=== PATIENT | male | born 1945 | race Caucasian/White ===

== ENCOUNTER 2018-01-03 14:46 | Emergency (ER) | payer OTHER ==
[~2018-01-03] VITALS: Ht 175.3 cm; Wt 95.0 kg
[~2018-01-03 14:46] MED LIST: CLOP1TAB5 PO; COEN75CA PO; MULT-506 PO; OMEG10007 PO; TAMS0.4C59 PO; VITA400C15 PO
[2018-01-03 14:52] VITALS: Ht 175.3 cm; Wt 95.0 kg
[2018-01-03] MEDS ORDERED: SODIUM CHLORIDE 0.9% 500ML 500 ML IV STA (15:09)
[2018-01-03] MEDS ORDERED: SODIUM CHLORIDE 0.9% 1000ML 1,000 ML IV STA (15:09)
--- NOTE | 2018-01-03 15:16 | EMERGENCY ROOM VISIT NOTE ---
History Report prepared by Federico: Oren Faria Under the Supervision of: Dr. Zaynab Kirk M.D. First contact with patient: 15:04 Chief Complaint: ILLNESS Stated Complaint: UNABLE TO EAT FOR 4 DAYS History of Present Illness The patient is a 72 year old male who presents to the Emergency Room with complaints of worsening weakness and loss of appetite that he has been experiencing for the past 4 days. The patient states that he has not eaten since having a fast food hamburger on Monday 3 days ago. He did feel nauseous and "uneasy" after eating this hamburger, but did not vomit and did not have any bouts of diarrhea. He has been diaphoretic throughout the day today. He has not had any bowel movements at all for the past 3 days. This is very unusual for him. He also complains of a waxing and waning headache. He denies any fevers , urinary symptoms, or respiratory symptoms. The patient has not had any medication changes, but has not taken his medications for the past 3 days. The patient has a history of aortic valve replacement and hyperlipidemia. He has no chest pain at this time. 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 A total of 10 systems reviewed and were otherwise negative. 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 Social History Smoking Status: Never Smoker Alcohol Use: occasionally Marital Status: Housing Status: lives with family Occupation Status: employed Current/Historical Medications Scheduled Aspirin (Aspirin), 325 MG PO HS Cefdinir (Omnicef), 300 MG PO Q12H Clopidogrel Bisulfate (Clopidogrel), 75 MG PO QAM Metoprolol Tartrate (Lopressor), 25 MG PO AMHS Pravastatin Sodium (Pravastatin Sodium), 40 MG PO QAM Tamsulosin HCl (Tamsulosin HCl), 0.4 MG PO QAM Scheduled PRN Hydrocodone/Acetaminophen 10MG/325MG (Egan 10MG/325MG), 1 TAB PO UD PRN for Pain Allergies Coded Allergies: Iodinated Diagnostic Agents (Verified Allergy, Intermediate, Hives per patient, 01/03/18) Uncoded Allergies: DEER DANDER (Allergy, Unknown, ., 01/03/18) Physical Exam Vital Signs Date Time Temp Pulse Resp B/P (MAP) Pulse Ox O2 Delivery O2 Flow Rate FiO2 01/03/18 22:08 75 16 134/76 98 01/03/18 20:16 74 16 136/75 93 Room Air 01/03/18 19:18 80 01/03/18 18:54 82 16 144/74 94 Room Air 01/03/18 17:15 37.4 01/03/18 16:47 80 16 163/81 98 Room Air 01/03/18 15:18 76 01/03/18 15:15 81 16 144/77 95 Room Air 01/03/18 14:52 37.0 83 20 142/74 95 Physical Exam Vital signs reviewed. General: pale-appearing elderly male, in no significant distress. HEENT: No scleral icterus, PERRLA, neck supple. Atraumatic. TMs are clear. Posterior oropharynx is clear. Cardiovascular: Regular rate and rhythm, Systolic click appreciated. Pulmonary: Clear to auscultation bilaterally, normal work of breathing. Abdomen: Soft, nontender, nondistended, positive bowel sounds. Musculoskeletal: Atraumatic. Mild swelling to the right larger than left lower extremity : Large inguinal hernia with scrotal swelling, non-tender. Normal appearing penis. Neurologic: Patient awake alert and oriented x 3, full strength in all 4 extremities. Cranial nerves 2 through 12 grossly intact. Skin: Warm, dry, no rash Medical Decision & Procedures ER Provider Diagnostic Interpretation: Radiology results as stated below per my review and radiologist interpretation: CT ANGIOGRAPHY OF THE ABDOMEN AND PELVIS CLINICAL HISTORY: Weakness, nausea. No recent bowel movement. COMPARISON STUDY: CT of the chest and abdomen October 29, 2017 and KUB performed earlier today. TECHNIQUE: Helical axial images of the abdomen and pelvis were obtained following intravenous injection of 116 cc of Optiray 320 IV. Sagittal and coronal reconstructed reviewed as well as maximal intensity projections on an independent 3-D workstation. FINDINGS: Arterial phase images of the liver, spleen, adrenal glands and pancreas are unremarkable. There is no biliary or pancreatic ductal dilatation. There is moderate atherosclerotic plaque of the abdominal aorta which is normal in caliber. The celiac axis, superior mesenteric artery and bilateral renal arteries are patent. There is suspected stenosis of the proximal inferior mesenteric artery. There is extensive plaque of the bilateral common iliac, internal iliac and external iliac arteries without evidence for a high-grade stenosis. No pneumatosis, free air or portal venous gas is present. A large right inguinal hernia contains numerous ileal loops and associated mesentery with vessels and fat. There is no resultant bowel obstruction. There is mild left hydroureteronephrosis. Of note, there is severe right hydronephrosis as well as moderate dilatation of the right ureter to the level of the right ureterovesical junction. Right nephrogram is delayed. There is mild right perinephric infiltration. No ureteral calculus is identified. There is a possible tiny hyperdense nodule at the right ureterovesical junction shown image 289 of [id number]. There is mild irregular bladder wall thickening. Prostate is moderately enlarged. No suspicious osseous lesions are present. There is no lymphadenopathy. There is no abdominal aortic dissection. IMPRESSION: 1. Marked right hydronephrosis and moderate right hydroureter with dilatation of the right ureter to the level of the ureterovesical junction. No ureteral calculus. Equivocal tiny nodule at the ureterovesical junction. Delayed right nephrogram with mild right perinephric infiltration. Punctate bladder calculus which could reflect a recently passed calculus. However, the etiology for this obstruction is not clear on this exam and favors a long standing obstruction with possible stricture, either benign or malignant. Moderate enlargement of the prostate. Urologic consultation is recommended. 2. Large right inguinal hernia with numerous small bowel loops and associated mesenteric fat and vessels extending into the right hemiscrotum. No resultant bowel obstruction. 3. Extensive aortoiliac atherosclerotic plaque without dissection or aneurysmal dilatation. Patent celiac axis and superior mesenteric artery. Stenosis at the origin of the inferior mesenteric artery. Electronically signed by: Keanu Go M.D. 01/03/2018 6:06 PM Dictated Date/Time: 01/03/2018 5:[address] CHEST ANGIOGRAPHY WITHOUT A WITH CONTRAST CLINICAL HISTORY: Thoracic aneurysm with history of aortic valve repair. Inability to eat for 4 days. Weakness, nausea. COMPARISON STUDY: Chest x-ray dated January 03, 2018, CT angiography the chest dated 11/09/2011 FINDINGS: Unenhanced images were obtained through the chest. The patient was then scanned in a dynamic helical fashion during intravenous administration of 116 cc of Optiray 320. MIP imaging was performed. Unenhanced images reveal no evidence of acute aortic hematoma. Postcontrast images reveal no pathologically enlarged axillary, mediastinal, or hilar lymph nodes. There are no pulmonary artery filling defects to indicate acute pulmonary embolism. There is evidence for a prior aortic valve repair. There is interval midline sternotomy. The ascending thoracic aorta is of smaller caliber than on the prior study measuring a maximum of 42 mm at the level of the anterior aortic arch. There are notable flaps to indicate acute aortic dissection. There is a left subclavian dual-chamber central venous pacemaker present. There is a trace right pleural effusion. There is no evidence of focal pulmonary consolidation. There are advanced arthritic changes present within the shoulders. There is moderate right-sided hydronephrosis. IMPRESSION: 1. Mild dilatation of the ascending thoracic aorta which measures 42 mm 2. No evidence of thoracic aortic dissection 3. No evidence of pulmonary embolism 4. Trace right pleural effusion 5. No evidence of focal pulmonary consolidation 6. Moderate right-sided hydronephrosis Electronically signed by: Arnie Waite M.D. 01/03/2018 5:42 PM Dictated Date/Time: 01/03/2018 5:32 PM CHEST ONE VIEW PORTABLE CLINICAL HISTORY: Weakness. COMPARISON STUDY: Chest radiograph August 23, 2016. FINDINGS: Note is made of median sternotomy wires, mediastinal surgical clips and a dual lead left subclavian pacemaker. There is severe osteoarthritis of the left glenohumeral joint. Moderate cardiomegaly is noted. There is no evidence of pulmonary edema. No pneumothorax or pleural effusion is noted. IMPRESSION: No acute cardiopulmonary findings. Moderate cardiomegaly. Electronically signed by: Keanu Go M.D. 01/03/2018 4:19 PM Dictated Date/Time: 01/03/2018 4:17 PM KUB CLINICAL HISTORY: no BM 3 days, weakness, nausea COMPARISON STUDY: CT of the chest abdomen and pelvis October 29, 2017. FINDINGS: The bowel gas pattern is normal. There is a fhfp-kw-jtrfinty amount stool within the colon. Of note, bowel loops projecting inferior to the pelvis and are only partially imaged on this exam. IMPRESSION: No evidence for a bowel obstruction on this exam however bowel loops project inferior to the pelvis and are partially imaged on this exam. The findings raise the possibility of a large inguinal hernia with numerous bowel loops within the scrotum, incompletely imaged. Electronically signed by: Keanu Go M.D. 01/03/2018 4:23 PM Dictated Date/Time: 01/03/2018 4:19 PM Laboratory Results 01/03/18 15:30 Red Blood Count 3.82, Mean Corpuscular Volume 91.4, Mean Corpuscular Hemoglobin 31.4, Mean Corpuscular Hemoglobin Concent 34.4, Mean Platelet Volume 10.5, Neutrophils (%) (Auto) 79.8, Lymphocytes (%) (Auto) 6.3, Monocytes (%) (Auto) 13.4, Eosinophils (%) (Auto) 0.1, Basophils (%) (Auto) 0.1, Neutrophils # (Auto ) 10.09, Lymphocytes # (Auto) 0.80, Monocytes # (Auto) 1.70, Eosinophils # (Auto ) 0.01, Basophils # (Auto) 0.01 01/03/18 15:30 Test 01/03/18 15:25 01/03/18 15:30 01/03/18 15:42 01/03/18 15:54 Influenza Type A (RT-PCR) Neg for Influ A (NEG) Influenza Type B (RT-PCR) Neg for Influ B (NEG) White Blood Count 12.65 K/uL (4.8-10.8) Red Blood Count 3.82 M/uL (4.7-6.1) Hemoglobin 12.0 g/dL (14.0-18.0) Hematocrit 34.9 % (42-52) Mean Corpuscular Volume 91.4 fL (80-100) Mean Corpuscular Hemoglobin 31.4 pg (25-34) Mean Corpuscular Hemoglobin Concent 34.4 g/dl (32-36) Platelet Count 158 K/uL (130-400) Mean Platelet Volume 10.5 fL (7.4-10.4) Neutrophils (%) (Auto) 79.8 % Lymphocytes (%) (Auto) 6.3 % Monocytes (%) (Auto) 13.4 % Eosinophils (%) (Auto) 0.1 % Basophils (%) (Auto) 0.1 % Neutrophils # (Auto) 10.09 K/uL (1.4-6.5) Lymphocytes # (Auto) 0.80 K/uL (1.2-3.4) Monocytes # (Auto) 1.70 K/uL (0.11-0.59) Eosinophils # (Auto) 0.01 K/uL (0-0.5) Basophils # (Auto) 0.01 K/uL (0-0.2) RDW Standard Deviation 43.8 fL (36.4-46.3) RDW Coefficient of Variation 13.1 % (11.5-14.5) Immature Granulocyte % (Auto) 0.3 % Immature Granulocyte # (Auto) 0.04 K/uL (0.00-0.02) D-Dimer 3360 ug/L FEU (0-500) Anion Gap 10.0 mmol/L (3-11) Est Creatinine Clear Calc Drug Dose 40.2 ml/min Estimated GFR () 40.7 Estimated GFR (Non- 35.1 BUN/Creatinine Ratio 16.1 (10-20) Calcium Level 8.5 mg/dl (8.5-10.1) Magnesium Level 2.1 mg/dl (1.8-2.4) Total Bilirubin 0.7 mg/dl (0.2-1) Direct Bilirubin 0.2 mg/dl (0-0.2) Aspartate Amino Transf (AST/SGOT) 18 U/L (15-37) Alanine Aminotransferase (ALT/SGPT) 21 U/L (12-78) Alkaline Phosphatase 75 U/L (45-117) Troponin I 0.049 ng/ml (0-0.045) Total Protein 7.1 gm/dl (6.4-8.2) Albumin 3.1 gm/dl (3.4-5.0) Lipase 74 U/L (73-393) Thyroid Stimulating Hormone (TSH) 1.050 uIu/ml (0.300-4.500) Bedside Lactic Acid Venous 0.85 mmol/L (0.90-1.70) Urine Color YELLOW Urine Appearance CLOUDY (CLEAR) Urine pH 5.5 (4.5-7.5) Urine Specific [place] 1.019 (1.000-1.030) Urine Protein 1+ (NEG) Urine Glucose (UA) NEG (NEG) Urine Ketones NEG (NEG) Urine Occult Blood TRACE (NEG) Urine Nitrite NEG (NEG) Urine Bilirubin NEG (NEG) Urine Urobilinogen NEG (NEG) Urine Leukocyte Esterase LARGE (NEG) Urine WBC (Auto) >30 /hpf (0-5) Urine RBC (Auto) 0-4 /hpf (0-4) Urine Hyaline Casts (Auto) 1-5 /lpf (0-5) Urine Epithelial Cells (Auto) 0-5 /lpf (0-5) Urine Bacteria (Auto) NEG (NEG) Urine Yeast (Auto) (NONE PRSENT) Laboratory results per my review. Medications Administered Medications (Trade) Dose Ordered Sig/Lico Route Start Time Stop Time Status Last Admin Dose Admin Sodium Chloride 500 ml @ 999 mls/hr Q31M STAT IV 01/03/18 15:09 01/03/18 15:39 DC 01/03/18 15:55 999 MLS/HR Sodium Chloride 1,000 ml @ 125 mls/hr Q8H STAT IV 01/03/18 15:09 01/03/18 22:25 DC 01/03/18 15:09 125 MLS/HR Diphenhydramine HCl (Benadryl Inj) 50 mg NOW STAT IV 01/03/18 16:44 01/03/18 16:48 DC 01/03/18 16:57 50 MG Methylprednisolone Sodium Succinate (Solu-Medrol IV) 125 mg NOW STAT IV 01/03/18 16:44 01/03/18 16:48 DC 01/03/18 16:57 125 MG Ceftriaxone Sodium (Rocephin Inj) 1 gm NOW STAT IV 01/03/18 17:36 01/03/18 17:38 DC 01/03/18 17:36 1 GM ECG Per My Interpretation Indication: weakness Rate (beats per minute): 78 Rhythm: sinus rhythm Findings: 1st degree AV block, LBBB, other (No PVCs, No ST Elevation/Depression ) ED Course 1506: Past medical records reviewed. The patient was evaluated in room A9. A complete history and physical examination was performed. 1509: Ordered Sodium Chloride 1000 mL @ 125 mL/hr IV, Sodium Chloride 500 mL @ 99 mL/hr IV. 1644: Ordered Solu-Medrol 125 mg IV, Benadryl 50 mg IV. 1736: Ordered Rocephin 1 gm IV. 184: I discussed the case with Dr. Marie - Urology. He states that the patient needs a Jin catheter (which the patient is refusing) he will follow up with the patient tomorrow. 1741: I discussed the case with Dr. Sean Gamez. He states he will make Dr. Dionisio Swenson aware of the patient when her arrives at 1800. 1923: I discussed the case with Dr. Sean Gamez - [facility]. He will evaluate the patient for further treatment. 2129: Pt states "I've been waiting here for hours. I have too much work to do, I need to leave." I sat with patient for >15 min at bedside explaining need for admission. He expressed an understanding. 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 He states his life is NOT in danger tonight and he will leave. I have given IV ceftriaxone, will Rx omnicef. He is refusing jin cath. Urology made aware of pt insisting on d/c. He is competent and is is at bedside. Asked to return for any issues. Given urology number for outpt f/u ROSY. Medical Decision Differential diagnosis: Etiologies such as metabolic, infection, hypo/hyperglycemia, electrolyte abnormalities, cardiac sources, intracerebral event, toxicologic, neurologic, as well as others were entertained. Pt was evaluated and appeared to be ill, but in no distress. IVF were initiated and blood work was drawn. Pt has mild WBC elevation, normal lactic. BC are pending. CT scan chest and abd was performed to r/o aortic injury/PE given pt PMH and markedly elevated ddimer. This study is concerning for ureteral and bladder outlet obstruction. Pt has been ordered a jin cath, but he declines. Pt was tx with IV ceftriaxone. He states he has a "forceful stream." He initially agreed to inpt evaluation, but became anxious and refused. I spend a significant amount of time explaining the risks and benefits of refusing, he again acknowledged and declined admission. Pt case was d/c Dr Marie, he recommended admission, jin cath. Pt aware of specialty recs, but refused. His was present at the bedside and attempted to change pt's mind. He has many issued to take care of (banking, dog, 's mother in [place]). Pt was encouraged to see urology as outpt ROSY and return to the ED for worsening of symptoms or any medical concerns. He was d/c with Rx for omnicef po x 10 days. Medication Reconcilliation Current Medication List: was personally reviewed by me Blood Pressure Screening Patient's blood pressure: Elevated blood pressure Referred to Hospitalist Consults Time Called: 1839 Consulting Physician: Dr. Marie - Urology Returned Call: [phone] I discussed the case with Dr. Frank Wright Urologjae. He states that the patient needs a Jin catheter (which the patient is refusing) he will follow up with the patient tomorrow. Additional Consults: Time Called: 1919 Consulted Physician: Dr. Sean MERCADO Hospitalist Returned Call: 1923 Additional Comments: I discussed the case with Dr. Sean MERCADO Hospitalist. He will evaluate the patient for further treatment. Impression Primary Impression: Ureteral obstruction Additional Impressions: Acute on chronic renal failure Inguinal hernia Scribe Attestation The scribe's documentation has been prepared under my direction and personally reviewed by me in its entirety. I confirm that the note above accurately reflects all work, treatment, procedures, and medical decision making performed by me. Departure Information Dispostion Being Evaluated By Hospitalist Prescriptions Cefdinir (Omnicef) 300 Mg Cap 300 MG PO Q12H, #20 CAP Prov: Zaynab Kirk M.D. 01/03/18 Referrals Franco Ayoub M.D. (PCP) Patient Instructions My [facility] Health Problem Qualifiers
[2018-01-03 15:58] LABS: BASO % 0.1 %; BASO ABS # 0.01 K/uL (0-0.2); EOS % 0.1 %; EOS ABS # 0.01 K/uL (0-0.5); HEMATOCRIT 34.9 % (42-52); IG# 0.04 K/uL (0.00-0.02); LYMPH % 6.3 %; MEAN CELL VOLUME 91.4 fL (80-100); MEAN CORPUSCULAR HEMOGLOBIN 31.4 pg (25-34); MEAN CORPUSCULAR HGB CONC 34.4 g/dl (32-36); MEAN PLATELET VOLUME 10.5 fL (7.4-10.4); MONO % 13.4 %; NEUT % 79.8 %; NEUT ABS # 10.09 K/uL (1.4-6.5); PLATELET COUNT 158 K/uL (130-400); RED CELL DISTRIBUTION WIDTH CV 13.1 % (11.5-14.5); RED CELL DISTRIBUTION WIDTH SD 43.8 fL (36.4-46.3); WHITE BLOOD COUNT 12.65 K/uL (4.8-10.8)
[2018-01-03 16:16] LABS: ALBUMIN 3.1 gm/dl (3.4-5.0); CALCIUM 8.5 mg/dl (8.5-10.1); CREATININE 1.86 mg/dl (0.60-1.40); POTASSIUM 3.9 mmol/L (3.5-5.1)
--- NOTE | 2018-01-03 16:20 | DIAGNOSTIC IMAGING REPORT ---
CHEST ONE VIEW PORTABLE CLINICAL HISTORY: Weakness. COMPARISON STUDY: Chest radiograph August 23, 2016. FINDINGS: Note is made of median sternotomy wires, mediastinal surgical clips and a dual lead left subclavian pacemaker. There is severe osteoarthritis of the left glenohumeral joint. Moderate cardiomegaly is noted. There is no evidence of pulmonary edema. No pneumothorax or pleural effusion is noted. IMPRESSION: No acute cardiopulmonary findings. Moderate cardiomegaly. Electronically signed by: Keanu Go M.D. 01/03/2018 4:19 PM Dictated Date/Time: 01/03/2018 4:17 PM
--- NOTE | 2018-01-03 16:24 | DIAGNOSTIC IMAGING REPORT ---
KUB CLINICAL HISTORY: no BM 3 days, weakness, nausea COMPARISON STUDY: CT of the chest abdomen and pelvis October 29, 2017. FINDINGS: The bowel gas pattern is normal. There is a [id number]-yaohmxrd amount stool within the colon. Of note, bowel loops projecting inferior to the pelvis and are only partially imaged on this exam. IMPRESSION: No evidence for a bowel obstruction on this exam however bowel loops project inferior to the pelvis and are partially imaged on this exam. The findings raise the possibility of a large inguinal hernia with numerous bowel loops within the scrotum, incompletely imaged. Electronically signed by: Keanu Go M.D. 01/03/2018 4:23 PM Dictated Date/Time: 01/03/2018 4:19 PM
[2018-01-03 16:32] LABS: TOTAL PROTEIN 7.1 gm/dl (6.4-8.2)
[2018-01-03] MEDS ORDERED: METHYLPREDNISOLONE 125 MG VIAL IV STA (16:44)
[2018-01-03] MEDS ORDERED: DiphenhydrAMINE HCL 50 MG/ML VIAL IV STA (16:44)
[2018-01-03] MEDS ORDERED: TAMS0.4C38 PO (16:49)
[2018-01-03] MEDS ORDERED: OPTIRAY 320 IV PRN (17:00)
[2018-01-03 17:15] VITALS: TEMP 37.4
[2018-01-03 17:25] LABS: INFLUENZA A PCR Neg for Influ A (NEG); INFLUENZA B PCR Neg for Influ B (NEG)
[2018-01-03] MEDS ORDERED: CEFTRIAXONE SOD INJ 1 GM ADDVIAL IV STA (17:36)
--- NOTE | 2018-01-03 17:44 | DIAGNOSTIC IMAGING REPORT ---
CT CHEST ANGIOGRAPHY WITHOUT A WITH CONTRAST CLINICAL HISTORY: Thoracic aneurysm with history of aortic valve repair. Inability to eat for 4 days. Weakness, nausea. COMPARISON STUDY: Chest x-ray dated January 03, 2018, CT angiography the chest dated 11/09/2011 FINDINGS: Unenhanced images were obtained through the chest. The patient was then scanned in a dynamic helical fashion during intravenous administration of 116 cc of Optiray 320. MIP imaging was performed. Unenhanced images reveal no evidence of acute aortic hematoma. Postcontrast images reveal no pathologically enlarged axillary, mediastinal, or hilar lymph nodes. There are no pulmonary artery filling defects to indicate acute pulmonary embolism. There is evidence for a prior aortic valve repair. There is interval midline sternotomy. The ascending thoracic aorta is of smaller caliber than on the prior study measuring a maximum of 42 mm at the level of the anterior aortic arch. There are notable flaps to indicate acute aortic dissection. There is a left subclavian dual-chamber central venous pacemaker present. There is a trace right pleural effusion. There is no evidence of focal pulmonary consolidation. There are advanced arthritic changes present within the shoulders. There is moderate right-sided hydronephrosis. IMPRESSION: 1. Mild dilatation of the ascending thoracic aorta which measures 42 mm 2. No evidence of thoracic aortic dissection 3. No evidence of pulmonary embolism 4. Trace right pleural effusion 5. No evidence of focal pulmonary consolidation 6. Moderate right-sided hydronephrosis Electronically signed by: Arnie Waite M.D. 01/03/2018 5:42 PM Dictated Date/Time: 01/03/2018 5:32 PM
--- NOTE | 2018-01-03 18:07 | DIAGNOSTIC IMAGING REPORT ---
CT ANGIOGRAPHY OF THE ABDOMEN AND PELVIS CLINICAL HISTORY: Weakness, nausea. No recent bowel movement. COMPARISON STUDY: CT of the chest and abdomen October 29, 2017 and KUB performed earlier today. TECHNIQUE: Helical axial images of the abdomen and pelvis were obtained following intravenous injection of 116 cc of Optiray 320 IV. Sagittal and coronal reconstructed reviewed as well as maximal intensity projections on an independent 3-D workstation. FINDINGS: Arterial phase images of the liver, spleen, adrenal glands and pancreas are unremarkable. There is no biliary or pancreatic ductal dilatation. There is moderate atherosclerotic plaque of the abdominal aorta which is normal in caliber. The celiac axis, superior mesenteric artery and bilateral renal arteries are patent. There is suspected stenosis of the proximal inferior mesenteric artery. There is extensive plaque of the bilateral common iliac, internal iliac and external iliac arteries without evidence for a high-grade stenosis. No pneumatosis, free air or portal venous gas is present. A large right inguinal hernia contains numerous ileal loops and associated mesentery with vessels and fat. There is no resultant bowel obstruction. There is mild left hydroureteronephrosis. Of note, there is severe right hydronephrosis as well as moderate dilatation of the right ureter to the level of the right ureterovesical junction. Right nephrogram is delayed. There is mild right perinephric infiltration. No ureteral calculus is identified. There is a possible tiny hyperdense nodule at the right ureterovesical junction shown image 289 of 499. There is mild irregular bladder wall thickening. Prostate is moderately enlarged. No suspicious osseous lesions are present. There is no lymphadenopathy. There is no abdominal aortic dissection. IMPRESSION: 1. Marked right hydronephrosis and moderate right hydroureter with dilatation of the right ureter to the level of the ureterovesical junction. No ureteral calculus. Equivocal tiny nodule at the ureterovesical junction. Delayed right nephrogram with mild right perinephric infiltration. Punctate bladder calculus which could reflect a recently passed calculus. However, the etiology for this obstruction is not clear on this exam and favors a long standing obstruction with possible stricture, either benign or malignant. Moderate enlargement of the prostate. Urologic consultation is recommended. 2. Large right inguinal hernia with numerous small bowel loops and associated mesenteric fat and vessels extending into the right hemiscrotum. No resultant bowel obstruction. 3. Extensive aortoiliac atherosclerotic plaque without dissection or aneurysmal dilatation. Patent celiac axis and superior mesenteric artery. Stenosis at the origin of the inferior mesenteric artery. Electronically signed by: Keanu Go M.D. 01/03/2018 6:06 PM Dictated Date/Time: 01/03/2018 5:42 PM
[2018-01-03] MEDS ORDERED: CEFD1CAP14 PO (21:59)
[2018-01-03 22:08] VITALS: BP 134/76; PULSE 75; O2SAT 98
--- NOTE | 2018-01-04 11:39 | Pharmacy Progress Note ---
ED Pharmacist Culture FollowUp Date of Service: Jan 04, 2018. Preliminary set of blood cultures is growing gram positive cocci (in both the aerobic and the anaerobic bottles). Cultures were drawn less than 24 hours ago. Patient was seen in ER yesterday for c/o weakness, loss of appetite, nausea, diaphoresis and headache. He also reports no BM x 3 days. Of note the patient dose have a h/o of [employer] Freestyle aortic root heart valve replacement. CT abd/pelvis read as: mild irregular bladder wall thickening. marked R hydronephrosis and moderate R hydroureter, no ureteral calculus. mild R perinephric infiltration. etiology of obstruction unclear but favors long standing obstruction with possible stricture. larger R inguinal hernia w/ numerous sm bowel loops and associated mesenteric fat and vessels extending into the R hemiscrotum w/o bowel obstruction. WBC 12.65, Neut # 10.09 UA: cloudy, (-) nitrite, + LE, > 30 WBC, 0-5 epis, 0 bacteria; Urine Cx is still pending Pt was given IV Rocephin in ER, Rx for Omnicef on discharge w/ instructions to f /u with urology for ureteral obstruction. Case was reviewed w/ Dr Birmingham, patient is to return today for reevaluation. I attempted to contact the patient w/ the phone number provided ) however there was no answer. I did leave a message requesting a return call.
[2018-01-04] MEDS ORDERED: HYDR-4079 PO (12:22)
[2018-01-04] MEDS ORDERED: ASPI325T4 PO (12:22)
[2018-01-04] MEDS ORDERED: LPR25 PO (12:22)
[2018-01-04] MEDS ORDERED: PRAV40TA2 PO (16:49)
[2018-01-04] MEDS ORDERED: PLV75 PO (21:18)
[2018-01-04] MEDS ORDERED: FLM4 PO (21:18)
--- NOTE | 2018-01-05 13:48 | Pharmacy Progress Note ---
ED Pharmacist Culture FollowUp Date of Service: Jan 05, 2018. Micro results reported to me today: BLCX: strep species now reported as enterococcus faecalis Urine Cx: >100,000CFU/mL enterococcus faecalis Pt was admitted to [facility] last evening and is currently receiving Zosyn which is appropriate therapy based upon reported sensitivities.
== END 2018-01-03 22:09 | disposition home or self-care (01) ==
LOC: C.EDB 14:48 → C.EDA 22:09
DX: N13.5 Crossing vessel and stricture of ureter without hydronephrosis (principal); N18.9 Chronic kidney disease, unspecified; K40.90 Unilateral inguinal hernia, without obstruction or gangrene, not specified as recurrent; I25.10 Atherosclerotic heart disease of native coronary artery without angina pectoris; Z95.1 Presence of aortocoronary bypass graft; E87.5 Hyperkalemia; Z95.2 Presence of prosthetic heart valve; Z79.82 Long term (current) use of aspirin; Z79.899 Other long term (current) drug therapy; Z91.048 Other nonmedicinal substance allergy status

== ENCOUNTER 2018-01-04 20:15 | Inpatient (IN) | payer OTHER ==
[~2018-01-04] VITALS: Ht 175.3 cm; Wt 95.2 kg
[~2018-01-04 20:15] MED LIST changes: +ASPI325T4 PO; +CEFD1CAP14 PO; -COEN75CA PO; +HYDR-4079 PO; +LPR25 PO; -MULT-506 PO; -OMEG10007 PO; +PRAV40TA2 PO; +TAMS0.4C38 PO; -TAMS0.4C59 PO; -VITA400C15 PO
[2018-01-04] MEDS ORDERED: PIPERACILLIN/TAZOBACTAM 4.5 GM/100ML D5W IV STA (20:33)
[2018-01-04 21:05] LABS: HEMATOCRIT 35.4 % (42-52); HEMOGLOBIN 12.3 g/dL (14.0-18.0); IG# 0.04 K/uL (0.00-0.02); LYMPH % 4.9 %; LYMPH ABS # 0.66 K/uL (1.2-3.4); MEAN CORPUSCULAR HEMOGLOBIN 31.6 pg (25-34); MEAN CORPUSCULAR HGB CONC 34.7 g/dl (32-36); MEAN PLATELET VOLUME 10.7 fL (7.4-10.4); MONO % 7.2 %; MONO ABS # 0.96 K/uL (0.11-0.59); NEUT % 87.6 %; NEUT ABS # 11.68 K/uL (1.4-6.5); PLATELET COUNT 202 K/uL (130-400); RED CELL DISTRIBUTION WIDTH SD 43.2 fL (36.4-46.3); WHITE BLOOD COUNT 13.34 K/uL (4.8-10.8)
--- NOTE | 2018-01-04 21:07 | DIAGNOSTIC IMAGING REPORT ---
CHEST ONE VIEW PORTABLE CLINICAL HISTORY: 72 years-old Male presenting with fever. TECHNIQUE: Portable upright AP view of the chest was obtained. COMPARISON: 01/03/2018. FINDINGS: Left subclavian pacer with leads to the right atrium and right ventricular apex. Median sternotomy wires and mediastinal surgical clips unchanged. Cardiac silhouette mildly enlarged. Obscuration of the left heart border is fairly similar to prior exam. No other evidence of a focal opacity. No large effusion or pneumothorax. Degenerative changes of the thoracic spine. Degenerative changes of the bilateral glenohumeral joints. IMPRESSION: 1. Partial obscuration of the left heart border is not changed since the most recent exam and may be due to prominent pericardial fat versus a lingular infiltrate. If there is clinical concern, dedicated PA and lateral views are recommended to exclude consolidation in the lingula. Electronically signed by: Juancarlos Galo M.D. 01/04/2018 9:06 PM Dictated Date/Time: 01/04/2018 9:04 PM
[2018-01-04 21:17] LABS: ISTAT CREATININE 1.7 mg/dl (0.6-1.3); ISTAT IONIZED CALCIUM 1.09 mmol/l (1.12-1.32); ISTAT POTASSIUM 4.2 mEq/L (3.3-5.0)
[2018-01-04] MEDS ORDERED: PLV75 PO (21:18)
[2018-01-04] MEDS ORDERED: FLM4 PO (21:18)
[2018-01-04 21:20] LABS: ALBUMIN 3.1 gm/dl (3.4-5.0); CALCIUM 8.5 mg/dl (8.5-10.1); CREATININE 1.69 mg/dl (0.60-1.40); POTASSIUM 3.8 mmol/L (3.5-5.1)
[2018-01-04 21:26] LABS: CKMB 3.1 ng/ml (0.5-3.6); TOTAL PROTEIN 7.3 gm/dl (6.4-8.2)
[2018-01-04] MEDS ORDERED: ONDANSETRON INJ 2 MG/ML 2 ML VIAL IV PRN (23:00)
[2018-01-04] MEDS ORDERED: POLYETHYLENE (MIRALAX) 17 GM PACK PO PRN (23:00)
[2018-01-04] MEDS ORDERED: ACETAMINOPHEN 325 MG TAB PO PRN (23:00)
[2018-01-04] MEDS ORDERED: PIPERACILL/TAZOBAC CONSULT ACTIVE PRN (23:00)
--- NOTE | 2018-01-04 23:15 | History and Physical ---
History & Physical Date & Time of Service: Jan 04, 2018 at 23:15 Chief Complaint: Readmit Per Dr. Arthur Vazquez Primary Care Physician: Franco Ayoub M.D. History of Present Illness Source: patient Mr Chaudhari is a pleasant 72 year old male with a past medical history of L ICA Stenosis s/p CEA in 2016, Bioprosthetic aortic valve, AAA s/p repair, Pacemaker for complete heart block, and OA that presents 1 day after being seen in the ED for a UTI. The patient reports feeling very ill and fatigued over the last 3 days and yesterday was seen in the ED and found to have a UTI. He was given a dose of Rocephin in the ED and discharged home with Omnicef. The patient was at home this evening and his physician Dr. Arthur Vazquez came to his house to report to him his blood cultures and urine culture were both growing Enterococcus. Due to concerns over the bacteremia and his bioprosthetic heart valve, the patient was told to return to the ED. The patient states he has just felt extremely fatigued and worn down over the last few days. He was at a [employer] tournament over the weekend and the day afterward has felt very fatigued since. At this time the patient states he feels well enough to "run a marathon". Family History Patient reports no known family medical history. Social History Smoking Status: Never Smoker Housing status: lives with family Occupational Status: employed Immunizations History of Influenza Vaccine: No History of Tetanus Vaccine?: Yes History of Pneumococcal: Yes History of Hepatitis B Vaccine: No Allergies Coded Allergies: Iodinated Diagnostic Agents (Verified Allergy, Intermediate, Hives per patient, 01/03/18) Uncoded Allergies: DEER DANDER (Allergy, Unknown, ., 01/03/18) Home Medications Scheduled Aspirin (Aspirin), 325 MG PO HS Cefdinir (Omnicef), 300 MG PO Q12H Clopidogrel Bisulfate (Clopidogrel), 75 MG PO QAM Metoprolol Tartrate (Lopressor), 25 MG PO AMHS Pravastatin Sodium (Pravastatin Sodium), 40 MG PO QAM Tamsulosin HCl (Tamsulosin HCl), 0.4 MG PO QAM Scheduled PRN Hydrocodone/Acetaminophen 10MG/325MG ([place] 10MG/325MG), 1 TAB PO UD PRN for Pain Review of Systems Constitutional: + sweats, + fatigue, No fever, No chills, No weakness Respiratory: No cough, No sputum, No wheezing, No shortness of breath, No dyspnea on exertion Abdomen: No pain, No nausea, No vomiting, No diarrhea, No constipation Genitourinary - Male: No dysuria, No urinary frequency Endocrine: + fatigue Physical Exam Vital Signs Date Time Temp Pulse Resp B/P (MAP) Pulse Ox O2 Delivery O2 Flow Rate FiO2 01/04/18 21:58 73 20 125/81 95 Room Air 01/04/18 20:18 36.8 97 18 153/74 94 Room Air General Appearance: WD/WN, no apparent distress Head: normocephalic, atraumatic Eyes: normal inspection, sclerae normal Neck: supple, no carotid bruits Respiratory/Chest: chest non-tender, lungs clear, normal breath sounds Cardiovascular: regular rate, rhythm, no gallop, no murmur Abdomen/GI: normal bowel sounds, non tender, soft Back: normal inspection, no CVA tenderness Extremities/Musculoskelatal: no calf tenderness, no pedal edema, normal range of motion Neurologic/Psych: alert, oriented x 3 Diagnostics Laboratory Results Results Past 24 Hours Test 01/04/18 20:50 01/04/18 21:01 01/04/18 21:03 01/04/18 22:08 Range/Units White Blood Count 13.34 4.8-10.8 K/uL Red Blood Count 3.89 4.7-6.1 M/uL Hemoglobin 12.3 14.0-18.0 g/dL Hematocrit 35.4 42-52 % Mean Corpuscular Volume 91.0 80-100 fL Mean Corpuscular Hemoglobin 31.6 25-34 pg Mean Corpuscular Hemoglobin Concent 34.7 32-36 g/dl Platelet Count 202 130-400 K/uL Mean Platelet Volume 10.7 7.4-10.4 fL Neutrophils (%) (Auto) 87.6 % Lymphocytes (%) (Auto) 4.9 % Monocytes (%) (Auto) 7.2 % Eosinophils (%) (Auto) 0.0 % Basophils (%) (Auto) 0.0 % Neutrophils # (Auto) 11.68 1.4-6.5 K/uL Lymphocytes # (Auto) 0.66 1.2-3.4 K/uL Monocytes # (Auto) 0.96 0.11-0.59 K/uL Eosinophils # (Auto) 0.00 0-0.5 K/uL Basophils # (Auto) 0.00 0-0.2 K/uL RDW Standard Deviation 43.2 36.4-46.3 fL RDW Coefficient of Variation 13.0 11.5-14.5 % Immature Granulocyte % (Auto) 0.3 % Immature Granulocyte # (Auto) 0.04 0.00-0.02 K/uL Sodium Level 133 136-145 mmol/L Potassium Level 3.8 3.5-5.1 mmol/L Chloride Level 100 98-107 mmol/L Carbon Dioxide Level 22 21-32 mmol/L Anion Gap 11.0 14.0 16-25 mmol/L Blood Urea Nitrogen 40 7-18 mg/dl Creatinine 1.69 0.60-1.40 mg/dl Est Creatinine Clear Calc Drug Dose 44.4 ml/min Estimated GFR () 45.7 Estimated GFR (Non- 39.4 BUN/Creatinine Ratio 23.4 10-20 Random Glucose 146 70-99 mg/dl Calcium Level 8.5 8.5-10.1 mg/dl Magnesium Level 2.4 1.8-2.4 mg/dl Total Bilirubin 0.4 0.2-1 mg/dl Direct Bilirubin 0.1 0-0.2 mg/dl Aspartate Amino Transf (AST/SGOT) 40 15-37 U/L Alanine Aminotransferase (ALT/SGPT) 41 12-78 U/L Alkaline Phosphatase 78 45-117 U/L Total Creatine Kinase 110 39-308 U/L Creatine Kinase MB 3.1 0.5-3.6 ng/ml Creatine Kinase MB Ratio 2.8 0-3.0 Troponin I 0.015 0-0.045 ng/ml Total Protein 7.3 6.4-8.2 gm/dl Albumin 3.1 3.4-5.0 gm/dl Bedside Lactic Acid Venous 1.55 0.90-1.70 mmol/L Bedside Hemoglobin 11.6 14.0-18.0 g/dl Bedside Hematocrit 34 42-52 % Bedside Sodium 134 135-144 mEq/L Bedside Potassium 4.2 3.3-5.0 mEq/L Bedside Chloride 101 101-112 mEq/L Bedside Total CO2 24 24-31 mEq/l Bedside Blood Urea Nitrogen 43 7-18 mg/dl Bedside Creatinine 1.7 0.6-1.3 mg/dl Bedside Glucose (other) 154 70-99 mg/dl Bedside Ionized Calcium ([place]) 1.09 1.12-1.32 mmol/l Prothrombin Time 10.3 9.0-12.0 SECONDS Prothromb Time International Ratio 1.0 0.9-1.1 Microbiology Results 01/04/18 Blood Culture, Received Pending 01/04/18 Blood Culture, Received Pending Impression Assessment and Plan Mr Chaudhari is a pleasant 72 year old male with a past medical history of L ICA Stenosis s/p CEA in 2016, Bioprosthetic aortic valve, AAA s/p repair, Pacemaker for complete heart block, and OA that presents 1 day after being seen in the ED for a UTI UTI Bacteremia - Urine and Blood Cultures positive for Enterococcus - Afebrile and vital stable at this time - Zosyn 3.375gm q6h - Awaiting final sensitivities of cultures - UA Yesterday: Trace Occult Blood, WBC > 30, Large Leuk Esterase - Admit Med/Surg Hydronephrosis - CT 01/03: Marked right hydronephrosis and moderate right hydroureter with dilatation of the right ureter to the level of the ureterovesical junction. No ureteral calculus. Equivocal tiny nodule at the ureterovesical junction. Delayed right nephrogram with mild right perinephric infiltration. Punctate bladder calculus which could reflect a recently passed calculus. However, the etiology for this obstruction is not clear on this exam and favors a long standing obstruction with possible stricture, either benign or malignant. Moderate enlargement of the prostate. Urologic consultation is recommended. - Patient states he has a history of ureteral stricture so this may be chronic, although unclear at this time how this may have contributed to current infection - Urology Consulted --> Follows with Dr. Marie as outpatient - Continue home Flomax Heart Block/ Carotid Stenosis/ HLD - Continue home Aspirin, Plavix, Lopressor - At ED visit yesterday, patient had extensive workup including CTA chest and dissection with no acute findings for vascular pathology DVT - SCDs Code Status - Full Resuscitation Resident Physician Supervision Note: I was present with Dr. Baker during the history and exam. I discussed the case with the resident and agree with the findings and plan as documented in the note. Any exceptions or clarifications are listed here: L ICA Stenosis - CEA 2016, Bioprosthetic aortic valve, AAA repair, complete heart block - pacemaker, L ureteral stricture - possibly chronic hydro. Had presented to the ER due to fatigue one day prior. Diagnosed with a UTI and DCd with Omnicef. Contacted by his PCP when blood cultures returned + and may match urine cultures. He does not feel ill and denies fevers, however, there is concern reg bacteremia due to his valve replacement and he is admitted by request of his primary MD. OE AAO x 3 S1,2 R (+) mild systolic murmur NT, ND No CCE P: Pt placed on Zosyn pending culture results Would contact his urologist regarding the chronicity of his hydro Cont ASA, Plavix, owing to carotid disease Documented By: Dionisio Swenson Resuscitation Status Full Code VTE Prophylaxis Will order VTE Prophylaxis: Yes Reason for no VTE drug order: Contraindicated Resident Tracking Resident Involvement: Resident Care Provided Care Provided: Adult Hospital Medicine
[2018-01-05] VITALS (8 sets, daily range): BP systolic 124–179; BP diastolic 73–90; PULSE 70–86; TEMP 36.5–36.7; O2SAT 94–97; Ht 175.3 cm; Wt 95.2 kg
--- NOTE | 2018-01-05 00:49 | EMERGENCY ROOM VISIT NOTE ---
History Report prepared by Federico: Latia Wilson Under the Supervision of: Dr. Bladimir Barbosa D.O. First contact with patient: 20:22 Chief Complaint: REFERRED BY DOCTOR Stated Complaint: READMIT PER DR. ARTHUR CARRION History of Present Illness The patient is a 72 year old male who presents to the Emergency Room with complaints of constant increased urination beginning five days ago. The patient was seen in the ED last night for increased urination. The patient's urine grew out enterococci and his blood cultures were gram positive. He was put on Omnicef. The patient was referred to come to the ED by Dr. Arthur Carrion. Patient along her has any burning with urination. There was initially no exacerbating or remitting factors. Burning was only present with urination initially. Pt denies headache, change in vision, fevers, chest pain, shortness of breath, nausea, vomiting, diarrhea, pain with urination, and melena. The patient has a history of a aortic valve replacement, type two heart block, and a pacemaker. The patient is on Plavix. Source of History: patient Onset: 5 days ago Position: other (generalized) Quality: other (urination) Timing: other (increased ) Associated Symptoms: + urinary symptoms, No chest pain, No SOB Review of Systems See HPI for pertinent positives & negatives. A total of 10 systems reviewed and were otherwise negative. 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 Social History Smoking Status: Never Smoker Alcohol Use: occasionally Occupation Status: employed Current/Historical Medications Scheduled Aspirin (Aspirin), 325 MG PO HS Cefdinir (Omnicef), 300 MG PO Q12H Clopidogrel Bisulfate (Clopidogrel), 75 MG PO QAM Metoprolol Tartrate (Lopressor), 25 MG PO AMHS Pravastatin Sodium (Pravastatin Sodium), 40 MG PO QAM Tamsulosin HCl (Tamsulosin HCl), 0.4 MG PO QAM Scheduled PRN Hydrocodone/Acetaminophen 10MG/325MG ([place] 10MG/325MG), 1 TAB PO UD PRN for Pain Allergies Coded Allergies: Iodinated Diagnostic Agents (Verified Allergy, Intermediate, Hives per patient, 01/03/18) Uncoded Allergies: DEER DANDER (Allergy, Unknown, ., 01/03/18) Physical Exam Vital Signs Date Time Temp Pulse Resp B/P (MAP) Pulse Ox O2 Delivery O2 Flow Rate FiO2 01/04/18 23:09 151/86 01/04/18 21:58 73 20 125/81 95 Room Air 01/04/18 20:18 36.8 97 18 153/74 94 Room Air Physical Exam GENERAL: Sitting up in bed, alert, well appearing, well nourished, no distress, non-toxic EYE EXAM: normal conjunctiva. OROPHARYNX: no exudate, no erythema, lips, buccal mucosa, and tongue normal and mucous membranes are moist NECK: supple, no nuchal rigidity, no adenopathy, non-tender LUNGS: Clear to auscultation. Normal chest wall mechanics HEART: Audible click present. no murmurs, S1 normal and S2 normal CHEST: Pacemaker upper chest wall. ABDOMEN: abdomen soft, non-tender, normo-active bowel sounds, no masses, no rebound or guarding. BACK: Back is symmetrical on inspection and there is no deformity, no midline tenderness, no CVA tenderness. SKIN: no rashes and no bruising UPPER EXTREMITIES: upper extremities are grossly normal. LOWER EXTREMITIES: No pitting edema. NEURO EXAM: Normal sensorium, cranial nerves II-XII grossly intact, normal speech, no gross weakness of arms, no gross weakness of legs. Medical Decision & Procedures ER Provider Diagnostic Interpretation: Radiology results as stated below per my review and the radiologist's interpretation: CHEST ONE VIEW PORTABLE FINDINGS: Left subclavian pacer with leads to the right atrium and right ventricular apex. Median sternotomy wires and mediastinal surgical clips unchanged. Cardiac silhouette mildly enlarged. Obscuration of the left heart border is fairly similar to prior exam. No other evidence of a focal opacity. No large effusion or pneumothorax. Degenerative changes of the thoracic spine. Degenerative changes of the bilateral glenohumeral joints. IMPRESSION: 1. Partial obscuration of the left heart border is not changed since the most recent exam and may be due to prominent pericardial fat versus a lingular infiltrate. If there is clinical concern, dedicated PA and lateral views are recommended to exclude consolidation in the lingula. Electronically signed by: Juancarlos Galo M.D. Laboratory Results 01/04/18 20:50 Red Blood Count 3.89, Mean Corpuscular Volume 91.0, Mean Corpuscular Hemoglobin 31.6, Mean Corpuscular Hemoglobin Concent 34.7, Mean Platelet Volume 10.7, Neutrophils (%) (Auto) 87.6, Lymphocytes (%) (Auto) 4.9, Monocytes (%) (Auto) 7.2, Eosinophils (%) (Auto) 0.0, Basophils (%) (Auto) 0.0, Neutrophils # (Auto) 11.68, Lymphocytes # (Auto) 0.66, Monocytes # (Auto) 0.96, Eosinophils # (Auto) 0.00, Basophils # (Auto) 0.00 01/04/18 20:50 Test 01/04/18 20:50 01/04/18 21:01 01/04/18 21:03 01/04/18 22:08 White Blood Count 13.34 K/uL (4.8-10.8) Red Blood Count 3.89 M/uL (4.7-6.1) Hemoglobin 12.3 g/dL (14.0-18.0) Hematocrit 35.4 % (42-52) Mean Corpuscular Volume 91.0 fL (80-100) Mean Corpuscular Hemoglobin 31.6 pg (25-34) Mean Corpuscular Hemoglobin Concent 34.7 g/dl (32-36) Platelet Count 202 K/uL (130-400) Mean Platelet Volume 10.7 fL (7.4-10.4) Neutrophils (%) (Auto) 87.6 % Lymphocytes (%) (Auto) 4.9 % Monocytes (%) (Auto) 7.2 % Eosinophils (%) (Auto) 0.0 % Basophils (%) (Auto) 0.0 % Neutrophils # (Auto) 11.68 K/uL (1.4-6.5) Lymphocytes # (Auto) 0.66 K/uL (1.2-3.4) Monocytes # (Auto) 0.96 K/uL (0.11-0.59) Eosinophils # (Auto) 0.00 K/uL (0-0.5) Basophils # (Auto) 0.00 K/uL (0-0.2) RDW Standard Deviation 43.2 fL (36.4-46.3) RDW Coefficient of Variation 13.0 % (11.5-14.5) Immature Granulocyte % (Auto) 0.3 % Immature Granulocyte # (Auto) 0.04 K/uL (0.00-0.02) Est Creatinine Clear Calc Drug Dose 44.4 ml/min Estimated GFR () 45.7 Estimated GFR (Non- 39.4 BUN/Creatinine Ratio 23.4 (10-20) Calcium Level 8.5 mg/dl (8.5-10.1) Magnesium Level 2.4 mg/dl (1.8-2.4) Total Bilirubin 0.4 mg/dl (0.2-1) Direct Bilirubin 0.1 mg/dl (0-0.2) Aspartate Amino Transf (AST/SGOT) 40 U/L (15-37) Alanine Aminotransferase (ALT/SGPT) 41 U/L (12-78) Alkaline Phosphatase 78 U/L (45-117) Total Creatine Kinase 110 U/L (39-308) Creatine Kinase MB 3.1 ng/ml (0.5-3.6) Creatine Kinase MB Ratio 2.8 (0-3.0) Troponin I 0.015 ng/ml (0-0.045) Total Protein 7.3 gm/dl (6.4-8.2) Albumin 3.1 gm/dl (3.4-5.0) Bedside Lactic Acid Venous 1.55 mmol/L (0.90-1.70) Bedside Hemoglobin 11.6 g/dl (14.0-18.0) Bedside Hematocrit 34 % (42-52) Bedside Sodium 134 mEq/L (135-144) Bedside Potassium 4.2 mEq/L (3.3-5.0) Bedside Chloride 101 mEq/L (101-112) Bedside Total CO2 24 mEq/l (24-31) Anion Gap 14.0 mmol/L (16-25) Bedside Blood Urea Nitrogen 43 mg/dl (7-18) Bedside Creatinine 1.7 mg/dl (0.6-1.3) Bedside Glucose (other) 154 mg/dl (70-99) Bedside Ionized Calcium ([place]) 1.09 mmol/l (1.12-1.32) Prothrombin Time 10.3 SECONDS (9.0-12.0) Prothromb Time International Ratio 1.0 (0.9-1.1) Laboratory results per my review. Medications Administered Medications (Trade) Dose Ordered Sig/Lico Route Start Time Stop Time Status Last Admin Dose Admin Piperacillin Sod/ Tazobactam Sod (Zosyn Iv) 4.5 gm NOW STAT IV 01/04/18 20:33 01/04/18 20:34 DC 01/04/18 20:56 4.5 GM ED Course ED COURSE: Vital signs were reviewed and showed normal The patients medical record was reviewed The above diagnostic studies were performed and reviewed. ED treatments and interventions as stated above. 2023: The patient was evaluated in room B6. A complete history and physical examination was performed. 2032: Ordered Zosyn IV 4.5 gm IV. 2202: I reviewed the patient's case with Dr. Ford. He will evaluate the patient for further management. 2214: Upon reevaluation, the patient is resting comfortably.I discussed my findings with the patient and he understands and agrees with the treatment plan. Based on the patients age, coexisting illnesses, exam and lab findings the decision to treat as an inpatient was made. The patient remained stable while under my care. The patient will be evaluated for further management. 2244: I reviewed the patient's case with Dr. Rolando Carrion. He thinks the patient should be admitted into the hospital. 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 She was seen here yesterday and diagnosed with a UTI. At that time he had positive blood cultures. He was encouraged to stay elected to leave. Blood cultures grew out gram-positive Streptococcus species. Urine is growing out enterococcus. This is likely consistent with what is growing in his blood. He was on Omnicef which is not treating his infection. His PCP went to his house and encouraged that he come in for admission. I did give him a dose of Zosyn. White count slightly increased. Discussed case with internal medicine patient was made for further workup. Medication Reconcilliation Current Medication List: was personally reviewed by me Blood Pressure Screening Patient's blood pressure: Elevated blood pressure Blood pressure disposition: Elevated BP felt to be situational Consults Time Called: 2144 Consulting Physician: Dr. Ford Returned Call: [phone] I reviewed the patient's case with Dr. Ford. He will evaluate the patient for further management. Additional Consults: Time Called: 2239 Consulted Physician: Dr. Rolando Carrion Returned Call: [phone] Additional Comments: I reviewed the patient's case with Dr. Rolando Carrion. He thinks the patient should be admitted into the hospital. Impression Primary Impression: Sepsis Additional Impressions: UTI (urinary tract infection) Hydronephrosis Positive blood culture Scribe Attestation The scribe's documentation has been prepared under my direction and personally reviewed by me in its entirety. I confirm that the note above accurately reflects all work, treatment, procedures, and medical decision making performed by me. Departure Information Dispostion Being Evaluated By Hospitalist Referrals Franco Ayoub M.D. (PCP) Patient Instructions My [facility] Problem Qualifiers Primary Impression: Sepsis Sepsis type: sepsis due to unspecified organism Qualified Codes: A41.9 - Sepsis, unspecified organism Additional Impressions: UTI (urinary tract infection) Urinary tract infection type: acute cystitis Hematuria presence: with hematuria Qualified Codes: N30.01 - Acute cystitis with hematuria Hydronephrosis Hydronephrosis type: unspecified Qualified Codes: N13.30 - Unspecified hydronephrosis
[2018-01-05] MEDS: ASPIRIN 325 MG ECTAB PO SCH ×2 (01:37→20:55)
[2018-01-05] MEDS: METOPROLOL TARTRATE 25 MG TAB PO SCH ×3 (01:38→20:55)
[2018-01-05] MEDS: PIPERACILL/TAZOBAC IV 3.375 GM in DEXTROSE 5% 100ML 100 ML IV SCH ×2 (03:28→11:19)
[2018-01-05] MEDS: TAMSULOSIN HCL 0.4 MG CAP PO SCH (08:15)
[2018-01-05] MEDS: CLOPIDOGREL BISULFATE 75 MG TAB PO SCH (08:15)
[2018-01-05] MEDS: PRAVASTATIN SOD 40 MG TAB PO SCH (08:15)
[2018-01-05 09:07] LABS: HEMATOCRIT 34.8 % (42-52); IG# 0.04 K/uL (0.00-0.02); LYMPH % 7.5 %; LYMPH ABS # 0.98 K/uL (1.2-3.4); MEAN CELL VOLUME 90.6 fL (80-100); MEAN CORPUSCULAR HEMOGLOBIN 31.3 pg (25-34); MEAN CORPUSCULAR HGB CONC 34.5 g/dl (32-36); MEAN PLATELET VOLUME 10.1 fL (7.4-10.4); MONO ABS # 1.31 K/uL (0.11-0.59); NEUT % 82.2 %; NEUT ABS # 10.75 K/uL (1.4-6.5); PLATELET COUNT 212 K/uL (130-400); RED CELL DISTRIBUTION WIDTH CV 13.1 % (11.5-14.5); RED CELL DISTRIBUTION WIDTH SD 43.7 fL (36.4-46.3); WHITE BLOOD COUNT 13.08 K/uL (4.8-10.8)
--- NOTE | 2018-01-05 09:18 | Urology Consultation ---
History General Date of Service: Jan 05, 2018. Chief Complaint: UTI Primary Care Physician: Franco Ayoub M.D. 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 He was seen in the ED on 01-03 for similar issue, and jin catheter was recommended at that time. The pt did refuse placement. UC&S noted to be growing enterococcus; sensitivities pending. He was discharged home on Omnicef. Pt then developed worsening of urination, and returned. CT scan from 01-03 showing significant right hydro with a distended bladder and large inguinal hernia. Cr noted to be slightly improved on admission at 1.69 compared to 1.86 2 days ago. Blood cultures pending. The pt has been started on Zosyn. Imaging Imaging: CT, Ultrasound Laboratory Last 24 Hours Test 01/04/18 20:50 01/04/18 21:01 01/04/18 21:03 01/04/18 22:08 White Blood Count 13.34 K/uL Red Blood Count 3.89 M/uL Hemoglobin 12.3 g/dL Hematocrit 35.4 % Mean Corpuscular Volume 91.0 fL Mean Corpuscular Hemoglobin 31.6 pg Mean Corpuscular Hemoglobin Concent 34.7 g/dl Platelet Count 202 K/uL Mean Platelet Volume 10.7 fL Neutrophils (%) (Auto) 87.6 % Lymphocytes (%) (Auto) 4.9 % Monocytes (%) (Auto) 7.2 % Eosinophils (%) (Auto) 0.0 % Basophils (%) (Auto) 0.0 % Neutrophils # (Auto) 11.68 K/uL Lymphocytes # (Auto) 0.66 K/uL Monocytes # (Auto) 0.96 K/uL Eosinophils # (Auto) 0.00 K/uL Basophils # (Auto) 0.00 K/uL RDW Standard Deviation 43.2 fL RDW Coefficient of Variation 13.0 % Immature Granulocyte % (Auto) 0.3 % Immature Granulocyte # (Auto) 0.04 K/uL Sodium Level 133 mmol/L Potassium Level 3.8 mmol/L Chloride Level 100 mmol/L Carbon Dioxide Level 22 mmol/L Anion Gap 11.0 mmol/L 14.0 mmol/L Blood Urea Nitrogen 40 mg/dl Creatinine 1.69 mg/dl Est Creatinine Clear Calc Drug Dose 44.4 ml/min Estimated GFR () 45.7 Estimated GFR (Non- 39.4 BUN/Creatinine Ratio 23.4 Random Glucose 146 mg/dl Calcium Level 8.5 mg/dl Magnesium Level 2.4 mg/dl Total Bilirubin 0.4 mg/dl Direct Bilirubin 0.1 mg/dl Aspartate Amino Transf (AST/SGOT) 40 U/L Alanine Aminotransferase (ALT/SGPT) 41 U/L Alkaline Phosphatase 78 U/L Total Creatine Kinase 110 U/L Creatine Kinase MB 3.1 ng/ml Creatine Kinase MB Ratio 2.8 Troponin I 0.015 ng/ml Total Protein 7.3 gm/dl Albumin 3.1 gm/dl Bedside Lactic Acid Venous 1.55 mmol/L Bedside Hemoglobin 11.6 g/dl Bedside Hematocrit 34 % Bedside Sodium 134 mEq/L Bedside Potassium 4.2 mEq/L Bedside Chloride 101 mEq/L Bedside Total CO2 24 mEq/l Bedside Blood Urea Nitrogen 43 mg/dl Bedside Creatinine 1.7 mg/dl Bedside Glucose (other) 154 mg/dl Bedside Ionized Calcium ([place]) 1.09 mmol/l Prothrombin Time 10.3 SECONDS Prothromb Time International Ratio 1.0 Test 01/05/18 08:51 Problem List Medical Problems: (1) Acute on chronic renal failure Status: Acute (2) Confusion Status: Acute (3) Hydronephrosis Status: Acute (4) Positive blood culture Status: Acute (5) Sepsis Status: Acute (6) Ureteral obstruction Status: Acute (7) UTI (urinary tract infection) Status: Acute Past History osteoarthritis, other (AAA, complete heart block ) Past Surgical History: pacemaker, other (AAA repair, Left ICA stenosis s/p CEA in 2016, biprosthetic aortic valve) Family History Patient reports no known family medical history. Social History Hx Tobacco Use In Past Year?: No Smoking: non-smoker Drug use: none Marital status: Housing status: lives with family Occupation status: employed Immunizations History of Influenza Vaccine: No History of Tetanus Vaccine?: Yes History of Pneumococcal: Yes History of Hepatitis B Vaccine: No History of MDRO No Allergies Coded Allergies: Iodinated Diagnostic Agents (Verified Allergy, Intermediate, Hives per patient, 01/03/18) Uncoded Allergies: DEER DANDER (Allergy, Unknown, ., 01/03/18) Medications Home Medications: Home Meds and Scripts Medications Dose Route/Sig Max Daily Dose Days Date Category Dose Instructions Clopidogrel (Clopidogrel Bisulfate) 75 Mg Tab 75 Mg PO QAM 01/04/18 Reported Tamsulosin HCl 0.4 Mg Cap 0.4 Mg PO QAM 01/04/18 Reported Omnicef (Cefdinir) 300 Mg Cap 300 Mg PO Q12H 01/03/18 Rx Pravastatin Sodium 40 Mg Tab 40 Mg PO QAM 01/03/18 Reported Aspirin 325 Mg Tab 325 Mg PO HS 07/05/12 Reported [place] 10MG/325MG (Acetaminophen/Hydrocodone Bitart) Tab 1 Tab PO UD PRN 07/05/12 Reported PRN PAIN Lopressor (Metoprolol Tartrate) 25 Mg Tab 25 Mg PO AMHS 07/05/12 Reported Inpatient Medications: Current Inpatient Medications Medications (Trade) Dose Ordered Sig/Lico Route Start Time Stop Time Status Last Admin Dose Admin Acetaminophen (Tylenol Tab) 650 mg Q4H PRN PO 01/04/18 23:00 02/03/18 22:59 Polyethylene (Miralax Powder Packet) 17 gm DAILY PRN PO 01/04/18 23:00 02/03/18 22:59 Ondansetron HCl (Zofran Inj) 4 mg Q6H PRN IV 01/04/18 23:00 02/03/18 22:59 Aspirin (Ecotrin Tab) 325 mg HS PO 01/05/18 21:00 02/04/18 20:59 01/05/18 01:37 325 MG Clopidogrel Bisulfate (plAVix TAB) 75 mg QAM PO 01/05/18 08:00 02/04/18 08:59 01/05/18 08:15 75 MG Metoprolol Tartrate (Lopressor Tab) 25 mg AMHS PO 01/05/18 08:00 02/04/18 08:59 01/05/18 08:15 25 MG Pravastatin Sodium (Pravachol Tab) 40 mg QAM PO 01/05/18 08:00 02/04/18 08:59 01/05/18 08:15 40 MG Tamsulosin HCl (Flomax Cap) 0.4 mg QAM PO 01/05/18 08:00 02/04/18 08:59 01/05/18 08:15 0.4 MG Piperacillin Sod/ Tazobactam Sod 3.375 gm/Dextrose 115 ml @ 28.75 mls/ hr Q8H IV 01/05/18 03:00 01/15/18 02:59 01/05/18 03:28 28.75 MLS/HR Miscellaneous Information (Consult) 1 ea UD PRN N/A 01/04/18 23:00 02/03/18 22:59 Diphenhydramine HCl (Benadryl Cap) 25 mg DAILY PRN PO 01/05/18 07:30 02/04/18 07:29 Finasteride (Proscar Tab) 5 mg QAM PO 01/06/18 08:00 02/05/18 07:59 UNV Finasteride (Proscar Tab) 5 mg 0845 ONCE PO 01/05/18 08:45 01/05/18 08:46 UNV Review of Systems Review of Systems Constitutional: No fever, No chills Eyes: No double vision Neurological: No dizzy Endocrine: No excessive thirst Gastrointestinal: No abdominal pain, No nausea, No vomiting Cardiovascular: No chest pain Respiratory: No shortness of breath Skin: No rash Musculoskeletal: No back pain Male : + weak stream, No painful urination Physical Exam Vital Signs: Vital Signs Past 12 Hours Date Time Temp Pulse Resp B/P (MAP) Pulse Ox O2 Delivery O2 Flow Rate FiO2 01/05/18 08:13 70 162/85 (110) 01/05/18 06:54 36.5 73 20 157/80 (105) 97 Room Air 01/05/18 00:20 36.6 78 18 156/79 94 Room Air 01/04/18 23:41 36.8 73 20 151/86 95 01/04/18 23:09 151/86 01/04/18 21:58 73 20 125/81 95 Room Air Physical Exam: General Appearance: no apparent distress Eyes: bilateral eyes normal inspection ENT: hearing grossly normal Neck: no JVD Respiratory/Chest: no respiratory distress, no accessory muscle use Cardiovascular: no JVD Extremities: normal inspection Neurologic/Psychiatric: alert, normal mood/affect, oriented x 3 Skin: normal color Assessment & Plan Assessment & Plan A/P: Right hydronephrosis and incomplete bladder emptying with SHAMAR, UTI AFVSS. The pt was seen and assessed with Dr. Marie this morning. Pt with right hydronephrosis, incomplete bladder emptying, and SHAMAR felt to be consistent with SANDOVAL secondary to BPH. Recommended jin catheter placement this morning, however the pt reports he needs to see his son play hockey tonight, and desires to be discharged without a jin at this time. Discussed the possibility for worsening infection and renal failure without placement of jin catheter this morning. Ultimately recommend placing jin and repeating renal u/s in 3-4 days to see if hydro has improved. Continue IV abx pending cultures sensitivities. Continue Flomax. Will add in finasteride for BPH. Also recommend considering general surgery consult for large hernia not likely helping with his SANDOVAL. Thanks for the consult. Will continue to follow along with primary service if the pt remains inpatient.
[2018-01-05] MEDS ORDERED: FINASTERIDE 5 MG TAB PO ONE (09:30)
[2018-01-05 09:31] LABS: CALCIUM 8.6 mg/dl (8.5-10.1); CREATININE 1.68 mg/dl (0.60-1.40); POTASSIUM 4.3 mmol/L (3.5-5.1)
--- NOTE | 2018-01-05 13:07 | Family Medicine Progress Note ---
Progress Note Date of Service Jan 05, 2018. Subjective Interviewed pt while sitting on bed. at bedside. Pt reiterates history of poor appetite, decreased urination and constipation. Says his presented to his door urging him to go to come back to the hospital given his positive blood cultures. Pt insists he is well enough and does not want a jin unless a specialist does it. Pt also insists that he can wait for the hospital to call with results of the sensitivities so he can go home and attend his hockey game. spoke with me outside the room afterwards and says she is at a loss as to what to do. They have been only eight months and she says his children do not have good contact with him. She feels he is being stubborn and irresponsible. She also reports that he takes a lot of ibuprofen when he has pain. The patient also takes [place] 10/325 twice daily. She is worried he will get sick and she will not know how to help him. Pt denies pain anywhere, says he is urinating without pain or hesitancy. Denies fevers or chills, chest pain or difficulty breathing. ROS See HPI for pertinent positives and negatives. Medications Current Inpatient Medications Medications (Trade) Dose Ordered Sig/Lico Route Start Time Stop Time Status Last Admin Dose Admin Acetaminophen (Tylenol Tab) 650 mg Q4H PRN PO 01/04/18 23:00 02/03/18 22:59 Polyethylene (Miralax Powder Packet) 17 gm DAILY PRN PO 01/04/18 23:00 02/03/18 22:59 Ondansetron HCl (Zofran Inj) 4 mg Q6H PRN IV 01/04/18 23:00 02/03/18 22:59 Aspirin (Ecotrin Tab) 325 mg HS PO 01/05/18 21:00 02/04/18 20:59 01/05/18 01:37 325 MG Clopidogrel Bisulfate (plAVix TAB) 75 mg QAM PO 01/05/18 08:00 02/04/18 08:59 01/05/18 08:15 75 MG Metoprolol Tartrate (Lopressor Tab) 25 mg AMHS PO 01/05/18 08:00 02/04/18 08:59 01/05/18 08:15 25 MG Pravastatin Sodium (Pravachol Tab) 40 mg QAM PO 01/05/18 08:00 02/04/18 08:59 01/05/18 08:15 40 MG Tamsulosin HCl (Flomax Cap) 0.4 mg QAM PO 01/05/18 08:00 02/04/18 08:59 01/05/18 08:15 0.4 MG Piperacillin Sod/ Tazobactam Sod 3.375 gm/Dextrose 115 ml @ 28.75 mls/ hr Q8H IV 01/05/18 03:00 01/15/18 02:59 01/05/18 11:19 28.75 MLS/HR Miscellaneous Information (Consult) 1 ea UD PRN N/A 01/04/18 23:00 02/03/18 22:59 Diphenhydramine HCl (Benadryl Cap) 25 mg DAILY PRN PO 01/05/18 07:30 02/04/18 07:29 Finasteride (Proscar Tab) 5 mg QAM PO 01/06/18 08:00 02/05/18 07:59 Acetaminophen/ Hydrocodone Bitart ([place] 10/325 Tab) 1 tab BID PRN PO 01/05/18 10:30 01/19/18 10:29 Objective Vital Signs Date Time Temp Pulse Resp B/P (MAP) Pulse Ox O2 Delivery O2 Flow Rate FiO2 01/05/18 08:13 70 162/85 (110) 01/05/18 08:00 Room Air 01/05/18 06:54 36.5 73 20 157/80 (105) 97 Room Air 01/05/18 00:20 36.6 78 18 156/79 94 Room Air 01/04/18 23:41 36.8 73 20 151/86 95 01/04/18 23:09 151/86 01/04/18 21:58 73 20 125/81 95 Room Air 01/04/18 20:18 36.8 97 18 153/74 94 Room Air Physical Exam Notes: GENERAL: Awake, alert, in no distress. Obese. HENT: Normocephalic, atraumatic. EYES: Normal conjunctiva. Sclera non-icteric. RESPIRATORY: Clear to auscultation. CARDIAC: Regular rate, normal rhythm. Extremities warm and well perfused. Pulses equal. ABDOMEN: Soft, non-distended. No tenderness to palpation. No rebound or guarding. : non-reducible prominent hernia evident in lower abdomen approx 15 cm in diameter predominantly in right scrotal area. MUSCULOSKELETAL: Chest examination reveals no tenderness. The back is symmetrical on inspection without obvious abnormality. There is no CVA tenderness to palpation. No joint edema. LOWER EXTREMITIES: No edema. No discoloration. NEURO: No motor deficits noted. SKIN: No rash or jaundice noted. Laboratory Results 01/05/18 08:51 Red Blood Count 3.84, Mean Corpuscular Volume 90.6, Mean Corpuscular Hemoglobin 31.3, Mean Corpuscular Hemoglobin Concent 34.5, Mean Platelet Volume 10.1, Neutrophils (%) (Auto) 82.2, Lymphocytes (%) (Auto) 7.5, Monocytes (%) (Auto) 10.0, Eosinophils (%) (Auto) 0.0, Basophils (%) (Auto) 0.0, Neutrophils # (Auto ) 10.75, Lymphocytes # (Auto) 0.98, Monocytes # (Auto) 1.31, Eosinophils # (Auto ) 0.00, Basophils # (Auto) 0.00 01/05/18 08:51 Test 01/04/18 20:50 01/04/18 21:01 01/04/18 21:03 01/04/18 22:08 Magnesium Level 2.4 mg/dl (1.8-2.4) Total Bilirubin 0.4 mg/dl (0.2-1) Direct Bilirubin 0.1 mg/dl (0-0.2) Aspartate Amino Transf (AST/SGOT) 40 U/L (15-37) Alanine Aminotransferase (ALT/SGPT) 41 U/L (12-78) Alkaline Phosphatase 78 U/L (45-117) Total Creatine Kinase 110 U/L (39-308) Creatine Kinase MB 3.1 ng/ml (0.5-3.6) Creatine Kinase MB Ratio 2.8 (0-3.0) Troponin I 0.015 ng/ml (0-0.045) Total Protein 7.3 gm/dl (6.4-8.2) Albumin 3.1 gm/dl (3.4-5.0) Bedside Lactic Acid Venous 1.55 mmol/L (0.90-1.70) Bedside Hemoglobin 11.6 g/dl (14.0-18.0) Bedside Hematocrit 34 % (42-52) Bedside Sodium 134 mEq/L (135-144) Bedside Potassium 4.2 mEq/L (3.3-5.0) Bedside Chloride 101 mEq/L (101-112) Bedside Total CO2 24 mEq/l (24-31) Bedside Blood Urea Nitrogen 43 mg/dl (7-18) Bedside Creatinine 1.7 mg/dl (0.6-1.3) Bedside Glucose (other) 154 mg/dl (70-99) Bedside Ionized Calcium ([place]) 1.09 mmol/l (1.12-1.32) Prothrombin Time 10.3 SECONDS (9.0-12.0) Prothromb Time International Ratio 1.0 (0.9-1.1) Test 01/05/18 08:51 White Blood Count 13.08 K/uL (4.8-10.8) Red Blood Count 3.84 M/uL (4.7-6.1) Hemoglobin 12.0 g/dL (14.0-18.0) Hematocrit 34.8 % (42-52) Mean Corpuscular Volume 90.6 fL (80-100) Mean Corpuscular Hemoglobin 31.3 pg (25-34) Mean Corpuscular Hemoglobin Concent 34.5 g/dl (32-36) Platelet Count 212 K/uL (130-400) Mean Platelet Volume 10.1 fL (7.4-10.4) Neutrophils (%) (Auto) 82.2 % Lymphocytes (%) (Auto) 7.5 % Monocytes (%) (Auto) 10.0 % Eosinophils (%) (Auto) 0.0 % Basophils (%) (Auto) 0.0 % Neutrophils # (Auto) 10.75 K/uL (1.4-6.5) Lymphocytes # (Auto) 0.98 K/uL (1.2-3.4) Monocytes # (Auto) 1.31 K/uL (0.11-0.59) Eosinophils # (Auto) 0.00 K/uL (0-0.5) Basophils # (Auto) 0.00 K/uL (0-0.2) RDW Standard Deviation 43.7 fL (36.4-46.3) RDW Coefficient of Variation 13.1 % (11.5-14.5) Immature Granulocyte % (Auto) 0.3 % Immature Granulocyte # (Auto) 0.04 K/uL (0.00-0.02) Anion Gap 8.0 mmol/L (3-11) Est Creatinine Clear Calc Drug Dose 44.6 ml/min Estimated GFR () 46.0 Estimated GFR (Non- 39.7 BUN/Creatinine Ratio 24.3 (10-20) Calcium Level 8.6 mg/dl (8.5-10.1) Assessment and Plan 72 year old M with a past medical history of LICA Stenosis s/p CEA in 2016, Bioprosthetic aortic valve, AAA s/p repair, Pacemaker for complete heart block, and OA that presents 1 day after being seen in the ED for weakness, found to have a UTI sent home on omnicef, then sent back to hospital by family doctor because blood cultures were positive. UTI with gram positive Bacteremia/Hydronephrosis - Urine and Blood Cultures positive for Enterococcus. - Afebrile and vitals stable at this time - Zosyn 3.375gm q6h given initally --> sensitivities indicate sensitivity to several medications. However given the length of time pt could be here and how much he desires not to be in hospital, discussed with pharmacist and decided that vancomycin would be a good choice since it is usually covered by outpatient insurance. - IV Vanc in g+bacteremia recommended length of treatment is 5-7 days AFTER first set of NEGATIVE blood cultures. - Urology consulted and strongly recommends that pt have jin inserted given evidence on CT of severe RT sided hydronephrosis and possible bladder outlet obstruction, and continue treat with antibiotics. - ID consulted - CT 01/03: Marked right hydronephrosis moderate right hydroureter with dilatation of the right ureter to the level of the ureterovesical junction. No ureteral calculus. Equivocal tiny nodule at the ureterovesical junction. Punctate bladder calculus which could reflect a recently passed calculus. However, the etiology for this obstruction is not clear on this exam and favors a long standing obstruction with possible stricture, either benign or malignant. Moderate enlargement of the prostate. Urologic consultation is recommended. Bovine Aortic valve/Heart Block/ Carotid Stenosis/ HLD - pt has a pacemaker and bovine heart valve - Continue home Aspirin, Plavix, Lopressor - At ED, patient had extensive workup including CTA chest and dissection with no acute findings for vascular pathology DVTppx - SCDs Code Status - Full Resuscitation Dispo: med/surg. Home on dc. Continued [facility] stay due to: multiple IV medications needed Discharge planning: home Resident Tracking Resident Involvement: Resident Care Provided Care Provided: Adult Hospital Medicine History Resident Physician Supervision Note: I was present with Dr. Butterfield during the history and exam. I discussed the case with the resident and agree with the findings and plan as documented in the note. Any exceptions or clarifications are listed here. Pt reports feeling well without complaint and is anxious to go home. Inguinal hernia is stable from previous and considerable in size. Tolerating abx therapy well. General Appearance: WD/WN, no apparent distress Respiratory: chest non-tender, lungs clear, normal breath sounds Cardiovascular: normal peripheral pulses, regular rate, rhythm, no murmur Gastrointestinal: normal bowel sounds, non tender, soft Assessment/Plan 72 y/o male h/o L ICA stenosis s/p CEA, biprosthetic aortic valve (bovine), AAA s/p repair, pacer insertion for grade 2 heart block p/w +ve BCx UTI w/ enteroccoci on blood culture x 1 - continue IV abx, repeat BCx, ID consultation. Urology consultation - strongly encouraged jin catheter placement in the setting of hydronephrosis deferred by patient after discussion Bovine aortic valve w/ cardiac hx - continue present regimen VTE PPX - SCDs FULL CODE
--- NOTE | 2018-01-05 13:46 | Pharmacy Progress Note ---
ED Pharmacist Culture FollowUp Date of Service: Jan 05, 2018. Micro results reported to me today: BLCX: strep species now reported as enterococcus faecalis Urine Cx: >100,000CFU/mL enterococcus faecalis Pt was admitted to [facility] last evening and is currently receiving Zosyn which is appropriate therapy based upon reported sensitivities.
[2018-01-05] MEDS ORDERED: PRS5 PO (14:45)
[2018-01-05] MEDS ORDERED: LEVO1TAB35 PO (14:45)
--- NOTE | 2018-01-05 14:46 | Discharge Instructions ---
Discharge Instructions Date of Service 01/08/2018 Admission Reason for Admission: Bacteremia Due To Enteroccus Discharge Discharge Diagnosis / Problem: Complicated UTI Discharge Goals Goal(s): Decrease discomfort, Improve disease control, Learn about illness, Diagnostic testing, Therapeutic intervention Activity Recommendations Activity Limitations: per Instructions/Follow-up section . Instructions / Follow-Up Instructions / Follow-Up You were admitted to the hospital due to a urine infection that got into the blood. The bacteria was Enterococcus and it is sensitive to Daptomycin, Ampicillin, Vancomycin, and Penicillin. Your treatment was started on January 06 , and you should continue to get IV antibiotics to complete a course of 14 days. This has been arranged for you at the Medical Treatment Unit. You should also follow up with Infectious Diseases for them to decide if you need further oral antibiotics. Follow up with Urology, as arranged, to discuss intermittent self catheterization. Daptomycin and your statin can also interact, so we recommend you get a CPK level done at your PCP's office in about a week's time. Please follow up with your PCP to discuss this. If you have any issues with your medication, please contact us or your PCP. Current Hospital Diet Patient's current hospital diet: Regular Diet Discharge Diet Recommended Diet: Regular Diet Pending Studies Studies pending at discharge: no Medical Emergencies . Who to Call and When: Medical Emergencies: If at any time you feel your situation is an emergency, please call 911 immediately. . Non-Emergent Contact Non-Emergency issues call your: Primary Care Provider . . "Provider Documentation" section prepared by Rosario Rowe .
[2018-01-05] MEDS ORDERED: LEVOFLOXACIN 750 MG TAB PO ONE (15:45)
[2018-01-05] MEDS: HYDROCODONE/ACETAMI 10/325 TAB PO PRN (16:38)
[2018-01-05] MEDS ORDERED: VANCOMYCIN CONSULT ACTIVE PRN (17:00)
--- NOTE | 2018-01-05 17:04 | Pharmacy Progress Note ---
Pharmacy Abx Initial Consult Date of Service Jan 05, 2018. Pharmacy Dosing Scope Date of Consult: 01/05/18 Consultation requested by: Dr. Butterfield Pharmacy is consulted to initiate vancomycin IV dosing therapy, order appropriate labs and adjust drug dose/frequency. Subjective The patient is a 72 year old male admitted on Jan 04, 2018 at 23:16. Objective Height (Feet): 5 Height (Inches): 9.00 Weight (Kilograms): 95.200 Vital Signs (Past 12Hrs) Vital Signs Past 12 Hours Date Time Temp Pulse Resp B/P (MAP) Pulse Ox O2 Delivery O2 Flow Rate FiO2 01/05/18 15:15 36.5 70 20 97 Room Air 01/05/18 08:13 70 162/85 (110) 01/05/18 08:00 Room Air 01/05/18 06:54 36.5 73 20 157/80 (105) 97 Room Air Lab Results (24Hrs) Laboratory Tests (24 Hours) Test 01/04/18 20:50 01/05/18 08:51 Total Creatine Kinase 110 U/L (39-308) White Blood Count 13.08 K/uL (4.8-10.8) H Red Blood Count 3.84 M/uL (4.7-6.1) L Hemoglobin 12.0 g/dL (14.0-18.0) L Hematocrit 34.8 % (42-52) L Mean Corpuscular Volume 90.6 fL (80-100) Mean Corpuscular Hemoglobin 31.3 pg (25-34) Mean Corpuscular Hemoglobin Concent 34.5 g/dl (32-36) Platelet Count 212 K/uL (130-400) Mean Platelet Volume 10.1 fL (7.4-10.4) Neutrophils (%) (Auto) 82.2 % Lymphocytes (%) (Auto) 7.5 % Monocytes (%) (Auto) 10.0 % Eosinophils (%) (Auto) 0.0 % Basophils (%) (Auto) 0.0 % Neutrophils # (Auto) 10.75 K/uL (1.4-6.5) H Lymphocytes # (Auto) 0.98 K/uL (1.2-3.4) L Monocytes # (Auto) 1.31 K/uL (0.11-0.59) H Eosinophils # (Auto) 0.00 K/uL (0-0.5) Basophils # (Auto) 0.00 K/uL (0-0.2) Micro Results Date/Time Source Procedure Growth Status 01/04/18 21:14 Blood Blood Culture - Preliminary Gram Positive Cocci Resulted 01/04/18 20:50 Blood Blood Culture - Preliminary Gram Positive Cocci Resulted Assessment & Plan Assessment 72 year old male with a PMH of bioprosthetic valve, AAA s/p repair who is admitted with an enterococcal UTI causing bacteremia. Plan vancomycin for treatment of bacteremia with a valve Vancomycin IV * Loading dose: 2500 mg (25 mg/kg) * Maintenance dose: 1500 mg IV (15 mg/kg) every 18 hours (estimated half-life is 17.3 hours with an elimination constant of 0.04 hr-1) * Goal trough level for bacteremia : 15 to 20 mcg/mL * Trough ordered for 01/07/18 Pharmacy will continue to follow and will adjust dose/frequency as necessary. Thank you.
[2018-01-05] MEDS ORDERED: VANCOMYCIN INJ 2,500 MG in SODIUM CHLORIDE 0.9% 500ML 500 ML IV ONE (17:30)
[2018-01-06 00:19] VITALS: BP 150/86; PULSE 58; TEMP 36.7; O2SAT 94
[2018-01-06 04:55] LABS: BASO % 0.1 %; BASO ABS # 0.01 K/uL (0-0.2); EOS % 0.5 %; EOS ABS # 0.05 K/uL (0-0.5); HEMATOCRIT 35.5 % (42-52); IG# 0.03 K/uL (0.00-0.02); LYMPH % 18.4 %; LYMPH ABS # 1.69 K/uL (1.2-3.4); MEAN CORPUSCULAR HEMOGLOBIN 31.1 pg (25-34); MEAN CORPUSCULAR HGB CONC 33.8 g/dl (32-36); MEAN PLATELET VOLUME 10.4 fL (7.4-10.4); MONO % 14.5 %; MONO ABS # 1.33 K/uL (0.11-0.59); NEUT % 66.2 %; NEUT ABS # 6.06 K/uL (1.4-6.5); PLATELET COUNT 217 K/uL (130-400); RED CELL DISTRIBUTION WIDTH CV 13.1 % (11.5-14.5); WHITE BLOOD COUNT 9.17 K/uL (4.8-10.8)
[2018-01-06 05:13] LABS: CALCIUM 8.3 mg/dl (8.5-10.1); CREATININE 1.86 mg/dl (0.60-1.40); POTASSIUM 4.5 mmol/L (3.5-5.1)
[2018-01-06 07:35] VITALS: BP 173/98; PULSE 71; TEMP 36.7; O2SAT 94
[2018-01-06] MEDS: TAMSULOSIN HCL 0.4 MG CAP PO SCH (07:46)
[2018-01-06] MEDS: METOPROLOL TARTRATE 25 MG TAB PO SCH ×2 (07:47→20:29)
[2018-01-06] MEDS: CLOPIDOGREL BISULFATE 75 MG TAB PO SCH (07:48)
[2018-01-06] MEDS: PRAVASTATIN SOD 40 MG TAB PO SCH (07:48)
[2018-01-06] MEDS: FINASTERIDE 5 MG TAB PO SCH (07:49)
--- NOTE | 2018-01-06 10:23 | Progress Note ---
Progress Note Date of Service Jan 06, 2018. Progress Note Patient's afebrile vital signs are stable. He says he is voiding okay. He continues to refuse a Pittman catheter placement His blood cultures are positive for gram-negative organism sensitivities and ID pending I reviewed his CT scan it does look like his bladder is very distended up to the umbilicus Recommend checking a postvoid residual I again think he needs to have a catheter placed and we did discuss this we also discussed the possibility of renal damage because of the hydronephrosis due to the back pressure from a full bladder. If he is adamant to not have a Pittman then we also discussed having him talk to do intermittent catheterization I am not sure whether he would be willing to go along with that At this point I would continue him on his antibiotics pending the sensitivities
--- NOTE | 2018-01-06 12:11 | DIAGNOSTIC IMAGING REPORT ---
CHEST 2 VIEWS ROUTINE CLINICAL HISTORY: 72 years-old Male presenting with assess consolidation. TECHNIQUE: PA and lateral views of the chest were obtained. COMPARISON: 01/04/2018. FINDINGS: Left subclavian pacer leads to the right atrium and right ventricular apex. Median sternotomy wires and mediastinal surgical clips unchanged. Cardiac silhouette mildly enlarged and pulmonary vasculature mildly prominent. Lungs and pleural spaces clear. Degenerative changes of the thoracic spine. Upper abdomen normal. IMPRESSION: 1. No evidence of consolidation in the lingula. Prominent pericardial fat likely accounted for the appearance on portable radiograph. No acute cardiopulmonary disease. Electronically signed by: Juancarlos Galo M.D. 01/06/2018 12:10 PM Dictated Date/Time: 01/06/2018 12:09 PM
[2018-01-06] MEDS: VANCOMYCIN INJ 1,500 MG in SODIUM CHLORIDE 0.9% 500ML 500 ML IV SCH (12:21)
[2018-01-06 15:30] VITALS: BP 158/76; PULSE 60; TEMP 36.7; O2SAT 95
[2018-01-06] MEDS: TOBRAMYCIN SULF 0.3% OP SOLN 5 ML BTL OP SCH ×2 (16:14→20:28)
[2018-01-06] MEDS: HYDROCODONE/ACETAMI 10/325 TAB PO PRN (16:17)
--- NOTE | 2018-01-06 18:56 | Family Medicine Progress Note ---
Progress Note Date of Service Jan 06, 2018. Subjective Pt evaluation today including: conversation w/ patient, conversation w/ family , physical exam, chart review, lab review, review of studies, conversation w/ edi consultant, review of inpatient medication list Patient well, denies acute overnight issues. States he is voiding sufficiently without urinary/BPH symptoms. Pt insists he is well enough and does not want a Jin. He denies fevers/chills, headaches, CP, palpitations, dyspnea, abdominal pain, lower extremity swelling or rashes. He states he is tolerating diet without nausea or vomiting, ambulating without exacerbating symptoms, and voiding and stooling appropriately. ROS is unremarkable except as noted above. Objective Vital Signs Date Time Temp Pulse Resp B/P (MAP) Pulse Ox O2 Delivery O2 Flow Rate FiO2 01/06/18 16:00 Room Air 01/06/18 15:30 36.7 60 18 158/76 (103) 95 Room Air 01/06/18 08:00 Room Air 01/06/18 07:35 36.7 71 18 173/98 (123) 94 Room Air 01/06/18 00:19 36.7 58 18 150/86 (107) 94 Room Air 01/06/18 00:17 Room Air Physical Exam Notes: GENERAL: Awake, alert, in no distress. Obese. HENT: Normocephalic, atraumatic. EYES: Normal conjunctiva. Sclera non-icteric. RESPIRATORY: Clear to auscultation. CARDIAC: Regular rate, normal rhythm. Extremities warm and well perfused. Pulses equal. ABDOMEN: Soft, non-distended. No tenderness to palpation. No rebound or guarding. : non-reducible prominent hernia evident in lower abdomen approx 15 cm in diameter predominantly in right scrotal area. MUSCULOSKELETAL: Chest examination reveals no tenderness. The back is symmetrical on inspection without obvious abnormality. There is no CVA tenderness to palpation. No joint edema. LOWER EXTREMITIES: No edema. No discoloration. NEURO: No motor deficits noted. SKIN: No rash or jaundice noted. Assessment and Plan 72 year old M with a past medical history of LICA Stenosis s/p CEA in 2016, Bioprosthetic aortic valve, AAA s/p repair, Pacemaker for complete heart block, and OA that presents 1 day after being seen in the ED for weakness, found to have a UTI sent home on omnicef, then sent back to hospital by family doctor because blood cultures were positive. UTI with gram positive Bacteremia/Hydronephrosis - CT 01/03: Marked right hydronephrosis Moderate right hydroureter with dilatation of the right ureter to the level of the ureterovesical junction. No ureteral calculus. Equivocal tiny nodule at the ureterovesical junction. Punctate bladder calculus which could reflect a recently passed calculus. However, the etiology for this obstruction is not clear on this exam and favors a long standing obstruction with possible stricture, either benign or malignant. Moderate enlargement of the prostate. Urologic consultation is recommended. - Urine and blood cultures positive for Enterococcus. - Afebrile and vitals stable at this time - Zosyn 3.375gm q6h given initally --> sensitivities indicate sensitivity to several medications. However given the length of time pt could be here and how much he desires not to be in hospital, discussed with pharmacist and decided that vancomycin would be a good choice since it is usually covered by outpatient insurance. - IV Vanc in G+ bacteremia recommended length of treatment is 5-7 days AFTER first set of NEGATIVE blood cultures. - Repeat blood cultures taken 01/06, results pending - Urology consulted and strongly recommends that pt have jin inserted given evidence on CT of severe RT sided hydronephrosis and possible bladder outlet obstruction, and continue treat with antibiotics. - Finasteride added, continue tamsulosin Bovine Aortic valve/Heart Block/ Carotid Stenosis/ HLD - Pt has a pacemaker and bovine heart valve - Continue home Aspirin, Plavix, Lopressor - At ED, patient had extensive workup including CTA chest and dissection with no acute findings for vascular pathology - ID consulted: recommend: Vancomycin adequate for now pending final identification and sensitivities. Given aortic valve replacement, would obtain echocardiogram, and may need RHETT to ensure no evidence of endocarditis. - Echo ordered DVT ppx - SCDs Code Status - Full Resuscitation Discharge planning: home Resident Tracking Resident Involvement: Resident Care Provided Care Provided: Adult Hospital Medicine Assessment/Plan Resident Physician Supervision Note: I was present with Dr. Cohen during the history and exam. I discussed the case with the resident and agree with the findings and plan as documented in the note. Any exceptions or clarifications are listed here 72 y/o male h/o L ICA stenosis s/p CEA, biprosthetic aortic valve (bovine), AAA s/p repair, pacer insertion for grade 2 heart block p/w +ve BCx. Pt refusing jin for elevated PVR. Awaiting C/S, will likely require course of abx, ID aware. VTE PPX - SCDs FULL CODE
[2018-01-06] MEDS: ASPIRIN 325 MG ECTAB PO SCH (20:29)
--- NOTE | 2018-01-06 21:04 | Family Medicine Progress Note ---
Progress Note Date of Service Jan 06, 2018. Objective Vital Signs Date Time Temp Pulse Resp B/P (MAP) Pulse Ox O2 Delivery O2 Flow Rate FiO2 01/06/18 16:00 Room Air 01/06/18 15:30 36.7 60 18 158/76 (103) 95 Room Air 01/06/18 08:00 Room Air 01/06/18 07:35 36.7 71 18 173/98 (123) 94 Room Air 01/06/18 00:19 36.7 58 18 150/86 (107) 94 Room Air 01/06/18 00:17 Room Air Resident Tracking Resident Involvement: Resident Care Provided Care Provided: Adult Hospital Medicine
--- NOTE | 2018-01-06 23:01 | Medical Consult ---
Consultation Date of Consultation: Jan 06, 2018. Attending Physician: Eddie Torres MD Reason for Consultation: Bacteremia in patient with bovine valve History of Present Illness 72-year-old male with complicated past medical history including carotid artery disease status post CEA, aortic valve disease status post bioprosthetic valve replacement, coronary artery disease, permanent pacemaker for heart block, who was recently seen in the emergency room for symptoms of urinary tract infection , treated with Omnicef. Blood urine cultures subsequently returned positive for Enterococcus, and patient was admitted to the hospital and started on vancomycin therapy. Blood cultures again positive for streptococcal species, possibly Enterococcus. Patient has improved clinically on vancomycin, no fever at present time. Denies any chest pain, no embolic phenomenon. Past Medical/Surgical History Medical Problems: (1) Acute on chronic renal failure Status: Acute (2) Confusion Status: Acute (3) Hydronephrosis Status: Acute (4) Positive blood culture Status: Acute (5) Sepsis Status: Acute (6) Ureteral obstruction Status: Acute (7) UTI (urinary tract infection) Status: Acute Medical Problems: (1) 99% STENOSIS L INT CAROTID ARTERY (2) Bacteremia due to Enterococcus (3) CAD (coronary artery disease) Surgical Problems: (1) Aortic valve replaced (2) Hx of CABG Family History Patient reports no known family medical history. Social History Smoking Status: Never Smoker Marital Status: Occupation Status: employed Allergies Coded Allergies: Iodinated Diagnostic Agents (Verified Allergy, Intermediate, Hives per patient, 01/03/18) Uncoded Allergies: DEER DANDER (Allergy, Unknown, ., 01/03/18) Current Inpatient Medications Current Inpatient Medications Medications (Trade) Dose Ordered Sig/Lico Route Start Time Stop Time Status Last Admin Dose Admin Acetaminophen (Tylenol Tab) 650 mg Q4H PRN PO 01/04/18 23:00 02/03/18 22:59 Polyethylene (Miralax Powder Packet) 17 gm DAILY PRN PO 01/04/18 23:00 02/03/18 22:59 Ondansetron HCl (Zofran Inj) 4 mg Q6H PRN IV 01/04/18 23:00 02/03/18 22:59 Aspirin (Ecotrin Tab) 325 mg HS PO 01/05/18 21:00 02/04/18 20:59 01/06/18 20:29 325 MG Clopidogrel Bisulfate (plAVix TAB) 75 mg QAM PO 01/05/18 08:00 02/04/18 08:59 01/06/18 07:48 75 MG Metoprolol Tartrate (Lopressor Tab) 25 mg AMHS PO 01/05/18 08:00 02/04/18 08:59 01/06/18 20:29 25 MG Pravastatin Sodium (Pravachol Tab) 40 mg QAM PO 01/05/18 08:00 02/04/18 08:59 01/06/18 07:48 40 MG Tamsulosin HCl (Flomax Cap) 0.4 mg QAM PO 01/05/18 08:00 02/04/18 08:59 01/06/18 07:46 0.4 MG Diphenhydramine HCl (Benadryl Cap) 25 mg DAILY PRN PO 01/05/18 07:30 02/04/18 07:29 Finasteride (Proscar Tab) 5 mg QAM PO 01/06/18 08:00 02/05/18 07:59 01/06/18 07:49 5 MG Acetaminophen/ Hydrocodone Bitart (Viking 10/325 Tab) 1 tab BID PRN PO 01/05/18 10:30 01/19/18 10:29 01/06/18 16:17 1 TAB Miscellaneous Information (Consult) 1 ea UD PRN N/A 01/05/18 17:00 02/04/18 16:59 Vancomycin HCl 1500 mg/Sodium Chloride 530 ml @ 200 mls/hr Q18H IV 01/06/18 11:00 01/20/18 10:59 01/06/18 12:21 200 MLS/HR Tobramycin Sulfate (Tobrex Oph Soln) 2 drops QID OP 01/06/18 17:00 01/13/18 16:59 01/06/18 20:28 2 DROPS Review of Systems All systems were reviewed and are negative except as per HPI Physical Exam Date Time Temp Pulse Resp B/P (MAP) Pulse Ox O2 Delivery O2 Flow Rate FiO2 01/06/18 20:00 Room Air 01/06/18 16:00 Room Air 01/06/18 15:30 36.7 60 18 158/76 (103) 95 Room Air 01/06/18 08:00 Room Air 01/06/18 07:35 36.7 71 18 173/98 (123) 94 Room Air 01/06/18 00:19 36.7 58 18 150/86 (107) 94 Room Air 01/06/18 00:17 Room Air General Appearance: WD/WN, no apparent distress Head: normocephalic, atraumatic Eyes: normal inspection, EOMI, sclerae normal ENT: normal ENT inspection, hearing grossly normal, pharynx normal Neck: supple, no adenopathy, thyroid normal, trachea midline Respiratory/Chest: chest non-tender, lungs clear, normal breath sounds, no respiratory distress Cardiovascular: regular rate, rhythm, no gallop, + systolic murmur Abdomen/GI: normal bowel sounds, non tender, soft, no organomegaly Back: normal inspection, no CVA tenderness Extremities/Musculoskelatal: normal inspection, no calf tenderness, non-tender Neurologic/Psych: alert, oriented x 3 Skin: normal color, warm/dry, no rash Lymphatic: no adenopathy Laboratory Results RUN DATE: 01/06/18 [facility] PAGE 1 RUN TIME: 1425 Specimen Inquiry PATIENT: DIANNA ANN LOC: [id number] U # : [id number] AGE/SX: 72/M ROOM: [facility] REG : 01/04/[address]: Eddie Torres, : 1945 BED: 1 DIS : STATUS: ADM IN TLOC: SPEC #: [id number] JUAN ANTONIO: 01/04/18 STATUS: RES REQ #: [id number] RECD: 01/04/[address]: Bladimir Barbosa DO SOURCE: BLOOD ENTR: 01/04/[address] [facility] [address]: Franco Ayoub M.D. [facility]: ORDERED: BLOOD CULTURE Procedure Result Verified Site BLD CULT Preliminary 01/06/18-1425 Organism 1 STREPTOCOCCUS SPECIES SENS SENSITIVITY TO FOLLOW Phoned Positive Blood Culture Gram Stain Report to RUSSEL YADAV on 01/05/18 At 1415 By [facility]. Results were verbalized back to [facility]. Date/Time Source Procedure Growth Status 01/06/18 04:38 Blood Blood Culture Pending Received 01/06/18 04:21 Blood Blood Culture Pending Received Last 24 Hours Test 01/06/18 04:21 White Blood Count 9.17 K/uL Red Blood Count 3.86 M/uL Hemoglobin 12.0 g/dL Hematocrit 35.5 % Mean Corpuscular Volume 92.0 fL Mean Corpuscular Hemoglobin 31.1 pg Mean Corpuscular Hemoglobin Concent 33.8 g/dl Platelet Count 217 K/uL Mean Platelet Volume 10.4 fL Neutrophils (%) (Auto) 66.2 % Lymphocytes (%) (Auto) 18.4 % Monocytes (%) (Auto) 14.5 % Eosinophils (%) (Auto) 0.5 % Basophils (%) (Auto) 0.1 % Neutrophils # (Auto) 6.06 K/uL Lymphocytes # (Auto) 1.69 K/uL Monocytes # (Auto) 1.33 K/uL Eosinophils # (Auto) 0.05 K/uL Basophils # (Auto) 0.01 K/uL RDW Standard Deviation 44.0 fL RDW Coefficient of Variation 13.1 % Immature Granulocyte % (Auto) 0.3 % Immature Granulocyte # (Auto) 0.03 K/uL Sodium Level 137 mmol/L Potassium Level 4.5 mmol/L Chloride Level 105 mmol/L Carbon Dioxide Level 26 mmol/L Anion Gap 6.0 mmol/L Blood Urea Nitrogen 38 mg/dl Creatinine 1.86 mg/dl Est Creatinine Clear Calc Drug Dose 40.3 ml/min Estimated GFR () 40.7 Estimated GFR (Non- 35.1 BUN/Creatinine Ratio 20.5 Random Glucose 93 mg/dl Calcium Level 8.3 mg/dl CHEST ONE VIEW PORTABLE CLINICAL HISTORY: 72 years-old Male presenting with fever. TECHNIQUE: Portable upright AP view of the chest was obtained. COMPARISON: 01/03/2018. FINDINGS: Left subclavian pacer with leads to the right atrium and right ventricular apex. Median sternotomy wires and mediastinal surgical clips unchanged. Cardiac silhouette mildly enlarged. Obscuration of the left heart border is fairly similar to prior exam. No other evidence of a focal opacity. No large effusion or pneumothorax. Degenerative changes of the thoracic spine. Degenerative changes of the bilateral glenohumeral joints. IMPRESSION: 1. Partial obscuration of the left heart border is not changed since the most recent exam and may be due to prominent pericardial fat versus a lingular infiltrate. If there is clinical concern, dedicated PA and lateral views are recommended to exclude consolidation in the lingula. Electronically signed by: Juancarlos Galo M.D. 01/04/2018 9:06 PM Assessment & Plan 72-year-old male with urinary retention and hydronephrosis, now with recent positive blood in urine cultures for Enterococcus, again on this admission with positive culture growing streptococcal species, suspect this may be Enterococcus again. Vancomycin adequate for now pending final identification and sensitivities. Given aortic valve replacement, would obtain echocardiogram , and may need RHETT to ensure no evidence of endocarditis. Will discuss with all involved. Will follow.
[2018-01-07 00:44] VITALS: BP 177/93; PULSE 73; TEMP 36.7; O2SAT 95
[2018-01-07] MEDS: VANCOMYCIN INJ 1,500 MG in SODIUM CHLORIDE 0.9% 500ML 500 ML IV SCH ×2 (05:17→23:35)
[2018-01-07] MEDS: TOBRAMYCIN SULF 0.3% OP SOLN 5 ML BTL OP SCH ×4 (08:16→20:05)
[2018-01-07] MEDS: TAMSULOSIN HCL 0.4 MG CAP PO SCH (08:16)
[2018-01-07] MEDS: CLOPIDOGREL BISULFATE 75 MG TAB PO SCH (08:19)
[2018-01-07] MEDS: PRAVASTATIN SOD 40 MG TAB PO SCH (08:19)
[2018-01-07] MEDS: HYDROCODONE/ACETAMI 10/325 TAB PO PRN ×2 (08:20→16:19)
[2018-01-07] MEDS: FINASTERIDE 5 MG TAB PO SCH (08:20)
[2018-01-07] MEDS: METOPROLOL TARTRATE 25 MG TAB PO SCH ×2 (08:27→20:07)
[2018-01-07 08:28] VITALS: BP 181/91; PULSE 70; TEMP 36.7; O2SAT 95
--- NOTE | 2018-01-07 08:43 | Family Medicine Progress Note ---
Progress Note Date of Service Jan 07, 2018. Subjective Pt evaluation today including: conversation w/ patient, physical exam, chart review, lab review, review of studies, conversation w/ information resource consultant, review of inpatient medication list Patient well, denies acute overnight issues. States he is voiding sufficiently without urinary/BPH symptoms. Pt continues to deny Pittman insertion despite post void residual of 744cc. He denies fevers/chills, headaches, CP, palpitations, dyspnea, abdominal pain, lower extremity swelling or rashes. He states he is tolerating diet without nausea or vomiting, ambulating without exacerbating symptoms, and voiding and stooling appropriately. ROS is unremarkable except as noted above. Objective Vital Signs Date Time Temp Pulse Resp B/P (MAP) Pulse Ox O2 Delivery O2 Flow Rate FiO2 01/07/18 08:28 36.7 70 14 181/91 (121) 95 Room Air 01/07/18 00:44 36.7 73 20 177/93 (121) 95 Room Air 01/07/18 00:00 Room Air 01/06/18 20:00 Room Air 01/06/18 16:00 Room Air 01/06/18 15:30 36.7 60 18 158/76 (103) 95 Room Air Physical Exam Notes: GENERAL: Awake, alert, in no distress. Obese. HENT: Normocephalic, atraumatic. EYES: Normal conjunctiva. Sclera non-icteric. RESPIRATORY: Clear to auscultation. CARDIAC: Regular rate, normal rhythm. Extremities warm and well perfused. Pulses equal. ABDOMEN: Soft, non-distended. No tenderness to palpation. No rebound or guarding. : non-reducible prominent hernia evident in lower abdomen approx 15 cm in diameter predominantly in right scrotal area. MUSCULOSKELETAL: Chest examination reveals no tenderness. The back is symmetrical on inspection without obvious abnormality. There is no CVA tenderness to palpation. No joint edema. LOWER EXTREMITIES: No edema. No discoloration. NEURO: No motor deficits noted. SKIN: No rash or jaundice noted. Laboratory Results Results Past 24 Hours Test 01/07/18 09:46 Range/Units White Blood Count 8.93 4.8-10.8 K/uL Red Blood Count 3.92 4.7-6.1 M/uL Hemoglobin 12.3 14.0-18.0 g/dL Hematocrit 35.6 42-52 % Mean Corpuscular Volume 90.8 80-100 fL Mean Corpuscular Hemoglobin 31.4 25-34 pg Mean Corpuscular Hemoglobin Concent 34.6 32-36 g/dl Platelet Count 247 130-400 K/uL Mean Platelet Volume 9.7 7.4-10.4 fL Neutrophils (%) (Auto) 72.7 % Lymphocytes (%) (Auto) 16.5 % Monocytes (%) (Auto) 8.3 % Eosinophils (%) (Auto) 1.8 % Basophils (%) (Auto) 0.1 % Neutrophils # (Auto) 6.50 1.4-6.5 K/uL Lymphocytes # (Auto) 1.47 1.2-3.4 K/uL Monocytes # (Auto) 0.74 0.11-0.59 K/uL Eosinophils # (Auto) 0.16 0-0.5 K/uL Basophils # (Auto) 0.01 0-0.2 K/uL RDW Standard Deviation 43.2 36.4-46.3 fL RDW Coefficient of Variation 13.1 11.5-14.5 % Immature Granulocyte % (Auto) 0.6 % Immature Granulocyte # (Auto) 0.05 0.00-0.02 K/uL Sodium Level 136 136-145 mmol/L Potassium Level 4.2 3.5-5.1 mmol/L Chloride Level 103 98-107 mmol/L Carbon Dioxide Level 25 21-32 mmol/L Anion Gap 7.0 3-11 mmol/L Blood Urea Nitrogen 28 7-18 mg/dl Creatinine 1.64 0.60-1.40 mg/dl Est Creatinine Clear Calc Drug Dose 45.7 ml/min Estimated GFR () 47.4 Estimated GFR (Non- 40.9 BUN/Creatinine Ratio 17.0 10-20 Random Glucose 161 70-99 mg/dl Calcium Level 8.7 8.5-10.1 mg/dl Assessment and Plan 72 year old M with a past medical history of LICA Stenosis s/p CEA in 2016, Bioprosthetic aortic valve, AAA s/p repair, Pacemaker for complete heart block, and OA that presents 1 day after being seen in the ED for weakness, found to have a UTI sent home on omnicef, then sent back to hospital by family doctor because blood cultures were positive. UTI with gram positive Bacteremia/Hydronephrosis - CT 2/28: Marked right hydronephrosis. Moderate right hydroureter with dilatation of the right ureter to the level of the ureterovesical junction. No ureteral calculus. Equivocal tiny nodule at the ureterovesical junction. Punctate bladder calculus which could reflect a recently passed calculus. However, the etiology for this obstruction is not clear on this exam and favors a long standing obstruction with possible stricture, either benign or malignant. Moderate enlargement of the prostate. Urologic consultation is recommended. - Urine and blood cultures positive for Enterococcus faecalis. - Afebrile and vitals stable at this time - Zosyn 3.375gm q6h given initally --> sensitivities indicate sensitivity to several medications. However given the length of time pt could be here and how much he desires not to be in hospital, discussed with pharmacist and decided that vancomycin would be a good choice since it is usually covered by outpatient insurance. - IV Vanc in G+ bacteremia recommended length of treatment is 5-7 days AFTER first set of NEGATIVE blood cultures. - Repeat blood cultures taken 01/06, results show no growth to date - Urology consulted and strongly recommends that pt have Pittman inserted given evidence on CT of severe RT sided hydronephrosis and possible bladder outlet obstruction, and continue treat with antibiotics. - Finasteride added, continue tamsulosin Bovine Aortic valve/Heart Block/ Carotid Stenosis/ HLD - Pt has a pacemaker and bovine heart valve - Continue home Aspirin, Plavix, Lopressor - At ED, patient had extensive workup including CTA chest and dissection with no acute findings for vascular pathology - ID consulted: recommend: Vancomycin adequate for now pending final identification and sensitivities. Given aortic valve replacement, would obtain echocardiogram, and may need RHETT to ensure no evidence of endocarditis. - Echo shows normal LV and RV and their respective function, EF = 60-65%. Apical wall motion abnormality may reflect pacemaker activation. Well seated Bioprosthetic AVR with appropriate gradients. Aortic root and ascending aorta are not seen. Grade I diastolic dysfunction, (abnormal relaxation pattern). - Will need to consult with ID further and discuss need for RHETT HTN - Continue metoprolol DVT ppx - SCDs Code Status - Full Resuscitation Continued [facility] stay due to: multiple IV medications needed Discharge planning: home Resident Tracking Resident Involvement: Resident Care Provided Care Provided: Adult Hospital Medicine Assessment/Plan Resident Physician Supervision Note: I was present with Dr. Cohen during the history and exam. I discussed the case with the resident and agree with the findings and plan as documented in the note. Any exceptions or clarifications are listed here 72 y/o male h/o L ICA stenosis s/p CEA, biprosthetic aortic valve (bovine), AAA s/p repair, pacer insertion for grade 2 heart block p/w +ve BCx. Pt remains hesitant to address underlying urologic disease despite encouragement. Post void residual 744cc. Was somewhat willing to self-cath with teaching this AM, but vacillating. TTE without apparent vegetation. Repeat BCx WNL. D/W urology regarding ongoing therapy in light of bovine valve. VTE PPX - SCDs FULL CODE
[2018-01-07 09:55] LABS: BASO % 0.1 %; BASO ABS # 0.01 K/uL (0-0.2); EOS % 1.8 %; EOS ABS # 0.16 K/uL (0-0.5); HEMATOCRIT 35.6 % (42-52); HEMOGLOBIN 12.3 g/dL (14.0-18.0); IG# 0.05 K/uL (0.00-0.02); LYMPH % 16.5 %; LYMPH ABS # 1.47 K/uL (1.2-3.4); MEAN CELL VOLUME 90.8 fL (80-100); MEAN CORPUSCULAR HEMOGLOBIN 31.4 pg (25-34); MEAN CORPUSCULAR HGB CONC 34.6 g/dl (32-36); MEAN PLATELET VOLUME 9.7 fL (7.4-10.4); MONO % 8.3 %; MONO ABS # 0.74 K/uL (0.11-0.59); NEUT % 72.7 %; PLATELET COUNT 247 K/uL (130-400); RED CELL DISTRIBUTION WIDTH CV 13.1 % (11.5-14.5); RED CELL DISTRIBUTION WIDTH SD 43.2 fL (36.4-46.3); WHITE BLOOD COUNT 8.93 K/uL (4.8-10.8)
[2018-01-07 10:26] LABS: CALCIUM 8.7 mg/dl (8.5-10.1); CREATININE 1.64 mg/dl (0.60-1.40); POTASSIUM 4.2 mmol/L (3.5-5.1)
[2018-01-07] MEDS ORDERED: PERFLUTREN LIPID MICROSPHERE (DEFINITY) IV ONE (10:40)
[2018-01-07] MEDS: LACTOBACILLUS ACIDOPHILUS (FLORANEX) TAB PO SCH ×2 (12:41→17:11)
--- NOTE | 2018-01-07 13:00 | Progress Note ---
Subjective Date of Service: Jan 07, 2018. Subjective Patient is afebrile vital signs are stable although he is a little bit hypertensive He has no complaints other than he wants to get out of the hospital He says he voids fine Postvoid residual yesterday was 744 cc Problem List Medical Problems: (1) Acute on chronic renal failure Status: Acute (2) Confusion Status: Acute (3) Hydronephrosis Status: Acute (4) Positive blood culture Status: Acute (5) Sepsis Status: Acute (6) Ureteral obstruction Status: Acute (7) UTI (urinary tract infection) Status: Acute Objective Vital Signs Date Time Temp Pulse Resp B/P (MAP) Pulse Ox O2 Delivery O2 Flow Rate FiO2 01/07/18 08:28 36.7 70 14 181/91 (121) 95 Room Air 01/07/18 08:00 Room Air 01/07/18 00:44 36.7 73 20 177/93 (121) 95 Room Air 01/07/18 00:00 Room Air 01/06/18 20:00 Room Air 01/06/18 16:00 Room Air 01/06/18 15:30 36.7 60 18 158/76 (103) 95 Room Air Physical Exam General Appearance: WD/WN, no apparent distress ENT: hearing grossly normal Respiratory/Chest: no respiratory distress, no accessory muscle use Laboratory Results Last 24 Hours Test 01/07/18 09:46 White Blood Count 8.93 K/uL Red Blood Count 3.92 M/uL Hemoglobin 12.3 g/dL Hematocrit 35.6 % Mean Corpuscular Volume 90.8 fL Mean Corpuscular Hemoglobin 31.4 pg Mean Corpuscular Hemoglobin Concent 34.6 g/dl Platelet Count 247 K/uL Mean Platelet Volume 9.7 fL Neutrophils (%) (Auto) 72.7 % Lymphocytes (%) (Auto) 16.5 % Monocytes (%) (Auto) 8.3 % Eosinophils (%) (Auto) 1.8 % Basophils (%) (Auto) 0.1 % Neutrophils # (Auto) 6.50 K/uL Lymphocytes # (Auto) 1.47 K/uL Monocytes # (Auto) 0.74 K/uL Eosinophils # (Auto) 0.16 K/uL Basophils # (Auto) 0.01 K/uL RDW Standard Deviation 43.2 fL RDW Coefficient of Variation 13.1 % Immature Granulocyte % (Auto) 0.6 % Immature Granulocyte # (Auto) 0.05 K/uL Sodium Level 136 mmol/L Potassium Level 4.2 mmol/L Chloride Level 103 mmol/L Carbon Dioxide Level 25 mmol/L Anion Gap 7.0 mmol/L Blood Urea Nitrogen 28 mg/dl Creatinine 1.64 mg/dl Est Creatinine Clear Calc Drug Dose 45.7 ml/min Estimated GFR () 47.4 Estimated GFR (Non- 40.9 BUN/Creatinine Ratio 17.0 Random Glucose 161 mg/dl Calcium Level 8.7 mg/dl Assessment and Plan Assessment Urinary tract infection with incomplete bladder emptying I again recommend that the patient have a Pittman catheter placed which he refused Also recommend that if he does not want the Pittman he should learn to do clean intermittent catheterization. He was offered a straight cath today but again refused He did say he would come to our office for [facility] teaching next week He does understand that he is at risk for injury to the bladder and/or kidneys from chronic retention He will probably need surgery on his prostate in the future Continued [facility] stay due to: multiple IV medications needed Discharge planning: home
--- NOTE | 2018-01-07 15:00 | ECHOCARDIOGRAM REPORT ---
*NOTICE TO RECEIVING [employer] This information is strictly Confidential and protected under [place] law. [place] law prohibits you from making any further disclosure of this information unless further disclosure is expressly permitted by the written consent of the person to whom it pertains or is authorized by law. A general authorization for the release of medical or other information is not sufficient for this purpose. Hospital accepts no responsibility if the information is made available to any other person, INCLUDING THE PATIENT. Interpretation Summary * Name: DIANNA ANN Study Date: 01/07/2018 10:13 AM BP: 177/93 mmHg * Patient Location: .[id number]\S\W460\S\1 HR: 73 * : 1945 (M/d/yy) Gender: Male Height: 69 in * Age: 72 yrs Ethnicity: [place] Weight: 209 lb * Ordering Physician: Bela Cohen. * Referring Physician: Franco Ayoub * Performed By: Denice Colmenares RDCS * * Reason For Study: Endocarditis * BSA: 2.1 m2 * -- Conclusions -- * Limited study; the apical images are non diagnostic The left ventricle is grossly normal size. * There is normal left ventricular wall thickness. * Ejection Fraction = 60-65%. * Left ventricular systolic function is normal. * Apical wall motion abnormality may reflect pacemaker activation. * The right ventricle is normal in size and function. * The right ventricular systolic function is normal as assessed by tricuspid annular plane systolic excursion (TAPSE) (normal >1.5 cm). * There appears to be a well seated Bioprosthetic AVR with appropriate gradients * The aortic root and ascending aorta are not seen * Grade I diastolic dysfunction, (abnormal relaxation pattern). Procedure Details * A complete two-dimensional transthoracic echocardiogram was performed (2D, M-mode, Doppler and color flow Doppler). * A contrast injection of Definity was performed to improve assessment of LV function. * Contrast was injected into an intravenous site in the right arm. * One vial of Definity ultrasound contrast was diluted in normal saline to a total volume of 10 ml. A total of '2' ml of solution was administered during imaging. * Lot # [id number] of Definity utilized for procedure. * Expiration date DEC 25. * The attending nurse who injected the contrast agent was Jaswinder Recio RN. Left Ventricle * The left ventricle is grossly normal size. * There is normal left ventricular wall thickness. * Ejection Fraction = 60-65%. * Left ventricular systolic function is normal. * Apical wall motion abnormality may reflect pacemaker activation. Right Ventricle * The right ventricle is normal in size and function. * There is a pacemaker lead in the right ventricle. * The right ventricular systolic function is normal as assessed by tricuspid annular plane systolic excursion (TAPSE) (normal >1.5 cm). Atria * Borderline left atrial enlargement. * Right atrium not well visualized. Mitral Valve * There is mild mitral annular calcification. * The mitral valve leaflets appear thickened, but open well. * Significant mitral regurgitation is absent. Tricuspid Valve * The tricuspid valve anatomy is normal. * Significant tricuspid regurgitation is absent. Aortic Valve * There appears to be a well seated Bioprosthetic AVR with appropriate gradients Pulmonic Valve * The pulmonic valve is not well visualized. Great Vessels * The aortic root and ascending aorta are not seen Pericardium/Pleural * There is no pericardial effusion. Great Vessels * Normal inferior vena cava size and collapsability with sniff indicates a normal right atrial pressure of 3 mmHg Left Ventricular Diastolic Function * Grade I diastolic dysfunction, (abnormal relaxation pattern). MMode 2D Measurements and Calculations IVSd 1.1 cm LVIDd 4.2 cm LVIDs 2.9 cm LVPWd 1.0 cm IVS/LVPW 1.0 FS 31.1 % EDV(Teich) 79.0 ml ESV(Teich) 32.2 ml EF(Teich) 59.2 % EDV(cubed) 74.6 ml ESV(cubed) 24.4 ml EF(cubed) 67.3 % LV mass(C)d 149.2 grams LV mass(C)dI 70.9 grams/m\S\2 SV(Teich) 46.8 ml SI(Teich) 22.2 ml/m\S\2 SV(cubed) 50.2 ml SI(cubed) 23.8 ml/m\S\2 Ao root diam 2.8 cm Ao root area 6.1 cm\S\2 ACS 1.5 cm LA dimension 3.7 cm asc Aorta Diam 2.8 cm LA/Ao 1.3 LVAd ap4 32.3 cm\S\2 LVLd ap4 8.4 cm EDV(MOD-sp4) 100.1 ml EDV(sp4-el) 105.0 ml LVAs ap4 19.7 cm\S\2 LVLs ap4 8.2 cm ESV(MOD-sp4) 39.1 ml ESV(sp4-el) 40.3 ml EF(MOD-sp4) 60.9 % EF(sp4-el) 61.6 % LVAd ap2 27.9 cm\S\2 LVLd ap2 8.2 cm EDV(MOD-sp2) 78.0 ml EDV(sp2-el) 80.0 ml LVAs ap2 15.3 cm\S\2 LVLs ap2 6.7 cm ESV(MOD-sp2) 27.7 ml ESV(sp2-el) 29.7 ml EF(MOD-sp2) 64.4 % EF(sp2-el) 62.9 % LVLd %diff -2.32 % EDV(MOD-bp) 90.3 ml LVLs %diff -21.92 % ESV(MOD-bp) 36.2 ml EF(MOD-bp) 59.9 % SV(MOD-sp4) 60.9 ml SI(MOD-sp4) 29.0 ml/m\S\2 SV(MOD-sp2) 50.2 ml SI(MOD-sp2) 23.9 ml/m\S\2 SV(MOD-bp) 54.1 ml SI(MOD-bp) 25.7 ml/m\S\2 SV(sp4-el) 64.7 ml SI(sp4-el) 30.7 ml/m\S\2 SV(sp2-el) 50.3 ml SI(sp2-el) 23.9 ml/m\S\2 Doppler Measurements and Calculations MV E max amada 68.4 cm/sec MV A max amada 83.9 cm/sec MV E/A 0.82 MV dec time 0.33 sec Ao V2 max 107.6 cm/sec Ao max PG 4.6 mmHg Ao max PG (full) -0.22 mmHg LV V1 max PG 4.8 mmHg LV V1 max 110.1 cm/sec PA V2 max 108.6 cm/sec PA max PG 4.7 mmHg PA acc slope 1170.9 cm/sec\S\2 PA acc time 0.08 sec TR max amada 194.9 cm/sec PA pr(Accel) 44.1 mmHg
[2018-01-07 15:05] VITALS: BP 121/73; PULSE 71; TEMP 36.7; O2SAT 96
[2018-01-07] MEDS: ASPIRIN 325 MG ECTAB PO SCH (20:06)
[2018-01-07 20:11] VITALS: BP 159/86; PULSE 70
[2018-01-07] MEDS ORDERED: VANCOMYCIN TROUGH ONE (22:30)
[2018-01-07 23:09] VITALS: BP 193/102; PULSE 69; TEMP 36.7; O2SAT 96
[2018-01-08 03:17] VITALS: BP 167/85
[2018-01-08 07:09] LABS: BASO % 0.1 %; BASO ABS # 0.01 K/uL (0-0.2); EOS % 2.8 %; EOS ABS # 0.28 K/uL (0-0.5); HEMATOCRIT 34.5 % (42-52); HEMOGLOBIN 11.8 g/dL (14.0-18.0); IG# 0.11 K/uL (0.00-0.02); LYMPH % 17.4 %; LYMPH ABS # 1.76 K/uL (1.2-3.4); MEAN CELL VOLUME 91.3 fL (80-100); MEAN CORPUSCULAR HEMOGLOBIN 31.2 pg (25-34); MEAN CORPUSCULAR HGB CONC 34.2 g/dl (32-36); MEAN PLATELET VOLUME 9.7 fL (7.4-10.4); MONO % 10.4 %; MONO ABS # 1.05 K/uL (0.11-0.59); NEUT % 68.2 %; NEUT ABS # 6.88 K/uL (1.4-6.5); PLATELET COUNT 262 K/uL (130-400); RED CELL DISTRIBUTION WIDTH SD 43.8 fL (36.4-46.3); WHITE BLOOD COUNT 10.09 K/uL (4.8-10.8)
[2018-01-08 07:34] LABS: CALCIUM 8.4 mg/dl (8.5-10.1); CREATININE 1.62 mg/dl (0.60-1.40); POTASSIUM 4.4 mmol/L (3.5-5.1)
[2018-01-08] MEDS ORDERED: SACCHAROMYCES BOUL (FLORASTOR) 250 MG CAP PO SCH (08:00)
[2018-01-08 08:23] VITALS: BP 156/88; PULSE 77; TEMP 36.7; O2SAT 95
[2018-01-08] MEDS: METOPROLOL TARTRATE 25 MG TAB PO SCH (09:11)
[2018-01-08] MEDS: LACTOBACILLUS ACIDOPHILUS (FLORANEX) TAB PO SCH ×2 (09:11→13:22)
[2018-01-08] MEDS: CLOPIDOGREL BISULFATE 75 MG TAB PO SCH (09:12)
[2018-01-08] MEDS: PRAVASTATIN SOD 40 MG TAB PO SCH (09:12)
[2018-01-08] MEDS: TAMSULOSIN HCL 0.4 MG CAP PO SCH (09:12)
[2018-01-08] MEDS: TOBRAMYCIN SULF 0.3% OP SOLN 5 ML BTL OP SCH ×2 (09:13→13:22)
[2018-01-08] MEDS: FINASTERIDE 5 MG TAB PO SCH (09:13)
--- NOTE | 2018-01-08 09:33 | Pharmacy Progress Note ---
Pharmacy Abx Dose Short Note Date of Service Jan 08, 2018. Assessment & Plan Assessment 72 year old male receiving vancomycin for treatment of enterococcal bacteremia and UTI Day # 4 of antimicrobial therapy. Item Value Date Time Blood Culture - Preliminary Resulted 01/06/18437 Blood NO GROWTH TO DATE. Blood Culture - Preliminary Resulted 01/06/18420 Blood NO GROWTH TO DATE. Blood Culture - Preliminary Resulted 01/04/182113 Blood Enterococcus Faecalis Blood Culture - Final Complete 01/04/182049 Blood Enterococcus Faecalis SPEC #: [id number] JUAN ANTONIO: 01/04/18 STATUS: COMP REQ #: [id number] RECD: 01/04/[address]: Bladimir Barbosa DO SOURCE: BLOOD ENTR: 01/04/[address] [facility] [address]: Franco Ayoub M.D. [facility]: ORDERED: BLOOD CULTURE Procedure Result Verified Site BLD CULT Final 01/07/18-1435 Organism 1 ENTEROCOCCUS FAECALIS SENS SENSITIVITY TO FOLLOW Phoned Positive Blood Culture Gram Stain Report to RUSSEL YADAV on 01/05/18 At 1415 By [facility]. Results were verbalized back to [facility]. 1. ENTEROCOCCUS FAECALIS Target Route Dose RX AB Cost M.I.C. IQ ------ ----- ------ -- ------ -------- - ------ AMPICILLIN S <=2 GENT SYNERGY S <=500 VANCOMYCIN S 2 PENICILLIN S 2 DAPTOMYCIN S 2 STREP SYNERGY S <=1000 Plan Vancomycin * Trough level of 17.6 mcg/mL is therapeutic * Plan to change to once daily dosing to assist with outpatient dosing if outpatient IV ampicillin or penicillin is not feasible * Change to 2250 mg (23.6 mg/kg) IV every 24 hours - starting 18 hours from last dose to ensure trough does not fall to subtherapeutic levels * Goal trough level for bacteremia w/ vanc YAIMA = 2 : ~20 mcg/mL * Trough level ordered for: 01/10/18 prior to the 3rd dose - slightly before steady state but want to evaluate sooner with new dosing Pharmacy will continue to follow and will adjust dose/frequency as necessary. Thank you.
--- NOTE | 2018-01-08 10:33 | Progress Note ---
Subjective Date of Service: Jan 08, 2018. Subjective Pt evaluation today including: conversation w/ patient, chart review, lab review Pt denies pain or issues voiding this morning. Continues to refuse jin catheter. States he has had difficulty voiding since the 1970s, so he is not particularly concerned at this time. He wishes to discuss with Dr. Dolan as an outpatient. Currently on Flomax, and has been started on finasteride this admission. Repeat blood cultures pending. Cr remains elevated at 1.62. The pt states he was seen by Dr. Grove earlier this morning. MADISON performed at that time. He is very anxious stating he just wants to get home. He is anxious that his new [place] Citizen may be out of her routine environment and struggling without him there. Problem List Medical Problems: (1) Acute on chronic renal failure Status: Acute (2) Confusion Status: Acute (3) Hydronephrosis Status: Acute (4) Positive blood culture Status: Acute (5) Sepsis Status: Acute (6) Ureteral obstruction Status: Acute (7) UTI (urinary tract infection) Status: Acute Review of Systems Constitutional: No fever, No chills Respiratory: No shortness of breath Cardiac: No chest pain Male : No dysuria, No hematuria Heme: No abnormal bleeding/bruising Objective Vital Signs Date Time Temp Pulse Resp B/P (MAP) Pulse Ox O2 Delivery O2 Flow Rate FiO2 01/08/18 08:23 36.7 77 20 156/88 (110) 95 Room Air 01/08/18 07:45 Room Air 01/08/18 03:17 167/85 (112) 01/07/18 23:40 Room Air 01/07/18 23:09 36.7 69 20 193/102 (132) 96 Room Air 01/07/18 20:11 70 159/86 (110) 01/07/18 15:45 Room Air 01/07/18 15:05 36.7 71 18 121/73 (89) 96 Room Air Physical Exam General Appearance: no apparent distress Eyes: normal inspection ENT: hearing grossly normal Neck: no JVD Respiratory/Chest: no respiratory distress, no accessory muscle use Cardiovascular: no JVD Extremities: normal inspection Neurologic/Psychiatric: alert, normal mood/affect, oriented x 3 Skin: normal color Laboratory Results Last 24 Hours Test 01/07/18 22:21 01/08/18 06:43 Vancomycin Level Trough 17.6 mcg/ml White Blood Count 10.09 K/uL Red Blood Count 3.78 M/uL Hemoglobin 11.8 g/dL Hematocrit 34.5 % Mean Corpuscular Volume 91.3 fL Mean Corpuscular Hemoglobin 31.2 pg Mean Corpuscular Hemoglobin Concent 34.2 g/dl Platelet Count 262 K/uL Mean Platelet Volume 9.7 fL Neutrophils (%) (Auto) 68.2 % Lymphocytes (%) (Auto) 17.4 % Monocytes (%) (Auto) 10.4 % Eosinophils (%) (Auto) 2.8 % Basophils (%) (Auto) 0.1 % Neutrophils # (Auto) 6.88 K/uL Lymphocytes # (Auto) 1.76 K/uL Monocytes # (Auto) 1.05 K/uL Eosinophils # (Auto) 0.28 K/uL Basophils # (Auto) 0.01 K/uL RDW Standard Deviation 43.8 fL RDW Coefficient of Variation 13.0 % Immature Granulocyte % (Auto) 1.1 % Immature Granulocyte # (Auto) 0.11 K/uL Sodium Level 139 mmol/L Potassium Level 4.4 mmol/L Chloride Level 106 mmol/L Carbon Dioxide Level 26 mmol/L Anion Gap 7.0 mmol/L Blood Urea Nitrogen 23 mg/dl Creatinine 1.62 mg/dl Est Creatinine Clear Calc Drug Dose 46.2 ml/min Estimated GFR () 48.1 Estimated GFR (Non- 41.5 BUN/Creatinine Ratio 14.4 Random Glucose 102 mg/dl Calcium Level 8.4 mg/dl Assessment and Plan A/P: UTI with sepsis, BPH with SANDOVAL and right hydronephrosis AFVSS. Management of UTI and sepsis per ID and primary service. Continue to recommend jin catheter, but the pt refuses. Will continue finasteride and Flomax for now. Will arrange for outpatient f/u with Dr. Dolan in the next 1-2 weeks as the pt desires to f/u with Dr. Dolan. No further management at this time. Recall PRN issues. Thanks for allowing us to participate in this pt's care. Continued [facility] stay due to: multiple IV medications needed Discharge planning: home
[2018-01-08] MEDS ORDERED: DAPT500I IV (10:57)
[2018-01-08] MEDS: HYDROCODONE/ACETAMI 10/325 TAB PO PRN (11:27)
--- NOTE | 2018-01-08 11:30 | Progress Note ---
Progress Note Date of Service Jan 08, 2018. Progress Note Patient is afebrile vital signs are stable offers no complaints Still refuses Pittman catheter Says he will learn to do CIC after his discharge and can come to our office again reinforced the fact that His chronic urinary retention can damage of the kidneys and the bladder I did do a rectal exam today his prostate is 70 g plus in size there were no nodules.
--- NOTE | 2018-01-08 11:55 | Discharge Summary ---
Discharge Summary Date of Service Jan 08, 2018. Discharge Summary Admission Date: Jan 04, 2018 at 23:16 Discharge Date: Jan 08, 2018 Discharge Disposition: Home Principal Diagnosis: Enterococcus Bacteremia & UTI Immunizations: Have You Had Influenza Vaccine: No History of Tetanus Vaccine?: Yes History of Pneumococcal: Yes History of Hepatitis B Vaccine: No Procedures: CXR: IMPRESSION: 1. No evidence of consolidation in the lingula. Prominent pericardial fat likely accounted for the appearance on portable radiograph. No acute cardiopulmonary disease. Consultations: Urology Medication Reconciliation New Medications: Daptomycin (Daptomycin) 500 Mg Inj 570 MG IV DAILY for 11 Days Finasteride (Finasteride) 5 Mg Tab 5 MG PO QAM for 30 Days, #30 TAB Continued Medications: Aspirin (Aspirin) 325 Mg Tab 325 MG PO HS, TAB Clopidogrel Bisulfate (Clopidogrel) 75 Mg Tab 75 MG PO QAM Hydrocodone/Acetaminophen 10MG/325MG ([place] 10MG/325MG) Tab 1 TAB PO UD PRN for Pain, TAB PRN PAIN Metoprolol Tartrate (Lopressor) 25 Mg Tab 25 MG PO AMHS, TAB Pravastatin Sodium (Pravastatin Sodium) 40 Mg Tab 40 MG PO QAM Tamsulosin HCl (Tamsulosin HCl) 0.4 Mg Cap 0.4 MG PO QAM Discontinued Medications: Cefdinir (Omnicef) 300 Mg Cap 300 MG PO Q12H, #20 CAP Discharge Exam Review of Systems: Constitutional: No fever, No chills, No sweats Eyes: No worsening of vision ENT: No hearing loss, No unusual epistaxis Respiratory: No cough, No sputum, No wheezing Cardiovascular: No chest pain, No orthopnea Abdomen: No pain, No nausea, No vomiting, No diarrhea, No constipation Musculoskeletal: No joint pain Genitourinary - Male: + urinary retention, No hematuria, No dysuria Neurologic: No memory loss, No paralysis, No weakness Psychiatric: No depression symptoms Endocrine: No fatigue Hematologic / Lymphatic: No abnormal bleeding/bruising Integumentary: No rash Physical Exam: General Appearance: WD/WN, no apparent distress Eyes: normal inspection, PERRL ENT: hearing grossly normal Neck: supple, no JVD Respiratory/Chest: lungs clear, normal breath sounds, no respiratory distress Cardiovascular: regular rate, rhythm, no murmur, normal peripheral pulses Abdomen / GI: normal bowel sounds, non tender, soft Extremities: no calf tenderness, no pedal edema Neurologic/Psychiatric: alert, normal mood/affect, oriented x 3 Skin: no rash Hospital Course HPI: Mr Chaudhari is a pleasant 72 year old male with a past medical history of L ICA Stenosis s/p CEA in 2016, Bioprosthetic aortic valve, AAA s/p repair, Pacemaker for complete heart block, and OA that presents 1 day after being seen in the ED for a UTI. The patient reports feeling very ill and fatigued over the last 3 days and yesterday was seen in the ED and found to have a UTI. He was given a dose of Rocephin in the ED and discharged home with Omnicef. The patient was at home this evening and his physician Dr. Arthur Vazquez came to his house to report to him his blood cultures and urine culture were both growing Enterococcus. Due to concerns over the bacteremia and his bioprosthetic heart valve, the patient was told to return to the ED. The patient states he has just felt extremely fatigued and worn down over the last few days. He was at a martial arts tournament over the weekend and the day afterward has felt very fatigued since. At this time the patient states he feels well enough to "run a marathon" HOSPITAL COURSE: Mr Chaudhari was admitted to the Med/Surg floors, and his blood cultures from were positive for Enterococcus, sensitive to Vancomycin and Daptomycin. He was treated with Vancomycin while in the hospital, but this was transitioned to Dapto prior to discharge and set up for him to get at the [facility] for the next 11 days. He declined a jin catheter throughout his admission though he was retaining urine upto 730 mL, and will learn intermittent self catheterization with Dr Dolan as an outpatient. Other issues below: Enteroccocus UTI and Bacteremia - Tolerated dose of Daptomycin 6mg/kg on 01/08/18 prior to DC. Had been on abx for 3 days prior, so will complete total of 14 days. - Follow up with Urology made - in the meantime advised to continue Tamsulosin and Finasteride for BPH contributing to bladder outlet obstruction and R hydronephrosis - Repeat blood cultures 01/06/18 so far negative Bovine Aortic valve/Heart Block/ Carotid Stenosis/ HLD - Continue home Aspirin, Plavix, Lopressor Viral conjunctivitis R eye - Tobramycin eyedrops prescribed - Pt to follow up with his eyedr HTN - Continue metoprolol VTE: SCDs Code Status: Full Resuscitation Dispo: Home with treatment in the [facility] Physician Supervision Note: I interviewed and examined the patient. Discussed with Dr Rowe and agree with findings and plan as documented in the note. Any exceptions or clarifications are listed here: None Patient was seen in his room he is impatient about leaving we discussed the fact that they have insurance approval for daptomycin we can give him a dose today and have him go home on intravenous daptomycin. Patient does have a bioprosthetic aortic valve and permanent pacemaker with a AAA repair will likely require a few weeks worth of treatment. Patient will be discharged on the IV daptomycin for follow-up with outpatient primary care and infectious disease. This patient had positive blood cultures however source was urinary in nature there is concern for possible urologic intervention in the future there is not defined endocarditis seen. This is a pansensitive enterococcus and patient could be on oral amoxicillin after his 2 weeks of therapy for his bacteremia and sepsis Vitals are stable physical exam is reviewed his heart sounds to be regular there is no overt loud murmurs lungs are clear Enterococcus bacteremia in a patient with a bioprosthetic valve replacement pacemaker and aortic aneurysm repair the patient will be on IV daptomycin at home for 2 weeks with follow-up to consider extending his treatment perhaps with infectious disease, follow-up also with urology to help evaluate his urinary outlet obstruction Documented By: Scottie Roth Total Time Spent: Greater than 30 minutes This includes examination of the patient, discharge planning, medication reconciliation, and communication with other providers. Discharge Instructions Please refer to the electronic Patient Visit Report (Discharge Instructions) for additional information. Follow-Up "Please, follow up with Dr. Arthur Vazquez on MondayJanuary 16 at 2:30 pm. They assured me that you will be finished with this appointment by 3:15 pm so you can make it to your next appointment. *If you need to change this appointment, call the office at [phone]. Please, follow up at [facility] Urology Office with Dr. Dolan on MondayJanuary 16 at 4:00 pm. *This office is located at [address] [place] [address] in [place]. If you need to change this appointment, call the office at [phone]. Please, follow up at [facility]'s Infectious Disease Office with Dr. Ornelas on MondayJanuary 17 at 1:45 pm. *This office is located in [address] of [facility] - big building in front of the hospital. If you need to change this appointment, call the office at [phone]." Additional Copies To Franco Ayoub M.D.; German Ornelas MD Resident Tracking Resident Involvement: Resident Care Provided Care Provided: Adult Hospital Medicine
[2018-01-08] MEDS ORDERED: SODIUM CHLORIDE 0.9% IV STA (13:33)
[2018-01-08] MEDS ORDERED: DAPTOMYCIN IV STA (13:33)
[2018-01-08] MEDS ORDERED: DAPTOmycin IV 575 MG in SYRINGE 0 ML IV ONE (14:00)
--- NOTE | 2018-01-08 14:24 | Discharge Summary ---
Discharge Summary Date of Service Jan 08, 2018. Discharge Summary Admission Date: Jan 04, 2018 at 23:16 Discharge Date: Jan 08, 2018 Immunizations: Have You Had Influenza Vaccine: No History of Tetanus Vaccine?: Yes History of Pneumococcal: Yes History of Hepatitis B Vaccine: No Hospital Course This includes examination of the patient, discharge planning, medication reconciliation, and communication with other providers. Discharge Instructions Please refer to the electronic Patient Visit Report (Discharge Instructions) for additional information.
[2018-01-08] MEDS ORDERED: VANCOMYCIN INJ 2,250 MG in SODIUM CHLORIDE 0.9% 500ML 500 ML IV SCH (17:00)
[2018-01-09] MEDS ORDERED: DAPTOMYCIN IV SCH (08:00)
[2018-01-09] MEDS ORDERED: SODIUM CHLORIDE 0.9% IV SCH (08:00)
--- NOTE | 2018-01-10 08:47 | EDITING REQUIRED CODING QUERY ---
SEPSIS To promote full compliance with coding requirements relating to patient care, physician participation is requested in all cases of pill machine operator uncertainty. Please assist us with the question(s) below: In responding to this query, please exercise your independent professional judgment. The fact that a question is asked does not imply that any particular answer is desired or expected. We appreciate your clarification on this issue. Coding Question: Bacteremia was documented throughout the record and Sepsis was documented in 3/5 progress note. Please clarify below to the best of your knowledge. Thank you for your help! (x) Bacteremia (Nonspecific laboratory finding of bacteria in the blood) () Present on Admission () Not present on admission () Unable to clinically determine () Sepsis () Present on Admission () Not present on admission () Unable to clinically determine () Other, patient has:
[2018-01-10] MEDS ORDERED: VANCOMYCIN TROUGH ONE (16:30)
== END 2018-01-08 15:48 | disposition home or self-care (01) | DRG 690 ==
LOC: C.EDB 20:16 → C.MS4W 23:16 → ENRESERV 23:25
PROVIDERS: ADMIT Student in an Organized Health Care Education/Training Program; ATTEND Internal Medicine
DX: N39.0 Urinary tract infection, site not specified (principal); I44.2 Atrioventricular block, complete; R78.81 Bacteremia; N13.4 Hydroureter; I65.22 Occlusion and stenosis of left carotid artery; E78.5 Hyperlipidemia, unspecified; B95.2 Enterococcus as the cause of diseases classified elsewhere; N40.0 Benign prostatic hyperplasia without lower urinary tract symptoms; K40.90 Unilateral inguinal hernia, without obstruction or gangrene, not specified as recurrent; B30.9 Viral conjunctivitis, unspecified; Z79.02 Long term (current) use of antithrombotics/antiplatelets; Z79.82 Long term (current) use of aspirin; Z79.899 Other long term (current) drug therapy; Z91.041 Radiographic dye allergy status; Z95.0 Presence of cardiac pacemaker; Z95.3 Presence of xenogenic heart valve

== ENCOUNTER → 2018-02-01 | Outpatient (CLI) | payer OTHER ==
[~2018-02-01] MED LIST changes: -CEFD1CAP14 PO; -CLOP1TAB5 PO; +DAPT500I IV; +FLM4 PO; +PLV75 PO; +PRS5 PO; -TAMS0.4C38 PO
--- NOTE | 2018-02-01 14:40 | DIAGNOSTIC IMAGING REPORT ---
ULTRASOUND KIDNEYS AND BLADDER CLINICAL HISTORY: Hydronephrosis. COMPARISON STUDY: Abdominal CT dated 01/03/2018. TECHNIQUE: Real-time, grayscale, and color flow sonography of the kidneys and bladder is performed. Images are reviewed in the transverse and longitudinal planes. FINDINGS: Kidneys: The kidneys demonstrate mild cortical atrophy. The right kidney measures 10 point cm in length and the left kidney measures 13.0 cm in length. There is severe right-sided hydronephrosis, likely unchanged from 01/03/2018. Mild to moderate hydronephrosis is seen on the left. No shadowing renal calculi are identified. There is no sonographic evidence of contour deforming renal mass lesion. No perinephric fluid is identified. Bladder: Bladder is markedly distended. The bladder wall is thickened and trabeculated consistent with chronic outlet obstruction. Prostatomegaly is observed and there is median lobe hypertrophy. Ureteral jets were not clearly seen. IMPRESSION: 1. There is severe right-sided hydronephrosis. 2. Mild to moderate hydronephrosis is seen on the left. 3. Prostatomegaly and distended bladder with evidence of chronic outlet obstruction. Electronically signed by: Raoul Gomez M.D. 02/01/2018 2:38 PM Dictated Date/Time: 02/01/2018 2:35 PM
== END | disposition home or self-care (01) ==
LOC: C.ULTR 13:48
PROVIDERS: ATTEND Urology
DX: N43.3 Hydrocele, unspecified (principal); R33.9 Retention of urine, unspecified; N13.30 Unspecified hydronephrosis; N40.1 Benign prostatic hyperplasia with lower urinary tract symptoms; N32.89 Other specified disorders of bladder; N32.0 Bladder-neck obstruction

== ENCOUNTER → 2018-02-14 | Outpatient (CLI) | payer OTHER | END | disposition home or self-care (01) | LOC: C.LABSPEC 17:05 | PROVIDERS: ATTEND Nurse Practitioner Adult Health | DX: R33.9 Retention of urine, unspecified (principal); R82.90 Unspecified abnormal findings in urine ==

== ENCOUNTER 2019-08-08 15:56 | Inpatient (IN) ==
--- NOTE | 2019-08-08 18:10 | CT Scan Report ---
CT SCAN OF THE ABDOMEN AND PELVIS WITHOUT CONTRAST CLINICAL HISTORY: Renal insufficiency. Possible hydronephrosis. PAIN COMPARISON STUDY: December 2017 TECHNIQUE: CT scan of the abdomen and pelvis was performed from the lung bases to the proximal femurs . Images are reviewed in the axial, sagittal, and coronal planes. IV contrast was not administered fo r this examination. A dose lowering technique was utilized adhering to the principles of ALARA. CT DOSE: 1114.89 mGy.cm FINDINGS: Lower chest: There are minor dependent atelectatic changes Liver: The unenhanced liver is normal in size, contour, and attenuation. There is no intrahepatic cameron iary ductal dilatation. Gallbladder: Unremarkable. Spleen: Normal in size and attenuation. Pancreas: Unremarkable. Adrenal glands: Unremarkable. Kidneys: There is severe chronic right-sided hydronephrosis and hydroureter with ureteral dilatation down to the level of the ureterovesical junction. No calculus is visualized. Also evident is moderate left-sided hydronephrosis and hydroureter with ureteral dilatation down to the level of the ureterov esical junction. Again no calculi are visualized. Bowel: There are no transition zone to indicate bowel obstruction. There is a very large right inguin al hernia containing both colon and small bowel. There are no current obstructive changes. There is n o evidence of acute appendicitis. There is no evidence of acute diverticulitis. Peritoneum: There is no intraperitoneal free air or abdominal ascites. Vasculature: The abdominal aorta is normal in course and caliber. Adenopathy: None. Pelvic viscera: The prostate is enlarged. There is mild bladder distention. There is minimal bladder wall thickening. Skeletal structures: No destructive osseous lesions are seen. IMPRESSION: 1. No evidence of bowel obstruction. No evidence of free air 2. No acute inflammatory changes 3. 20 cm right inguinal/scrotal hernia containing both large and small bowel loops 4. Progressive severe right-sided hydronephrosis and hydroureter down to the level of the ureterovesi ryan junction. Progressive moderate left-sided hydronephrosis and hydroureter down to the level of the ureterovesical junction. No obstructing calculi identified 5. Prostatomegaly, mild bladder distention and bladder wall thickening. Electronically signed by: Arnie Waite M.D. 08/08/2019 6:08 PM
[2019-08-08 18:13] LABS: Basophils # (auto) 0.02 K/uL (0-0.2); Basophils % (auto) 0.1 %; Hematocrit (blood only) 38.4 % (42-52); Immature Granulocytes # (auto) 0.05 K/uL (0.00-0.02); Immature Granulocytes % (auto) 0.3 %; Lymphocytes # (auto) 1.76 K/uL (1.2-3.4); Mean Corpuscular Hemoglobin 31.2 pg (25-34); Mean Corpuscular Hgb Conc 33.9 g/dL (32-36); Mean Corpuscular Volume 92.1 fL (80-100); Mean Platelet Volume 10.6 fL (7.4-10.4); Monocytes # (auto) 1.92 K/uL (0.11-0.59); Neutrophils # (auto) 12.28 K/uL (1.4-6.5); Neutrophils % (auto) 76.6 %; Platelet Count 262 K/uL (130-400); RDW Coefficient of Variation 13.3 % (11.5-14.5); RDW Standard Deviation 44.5 fL (36.4-46.3); Red Blood Count 4.17 M/uL (4.7-6.1); White Blood Count 16.03 K/uL (4.8-10.8)
[2019-08-08] MEDS ORDERED: SODIUM CHLORIDE 0.9% 1000ML 1,000 ML IV ONE (18:21)
[2019-08-08 18:25] LABS: Albumin Level 3.4 gm/dl (3.4-5.0); BUN Creatinine Ratio 12.2 (10-20); Calcium 9.2 mg/dl (8.5-10.1); Creatinine Clr Calc Pharmacy 35.2 ml/min; Est GFR (Non-African American) 31.9; Potassium 3.8 mmol/L (3.5-5.1)
[2019-08-08 18:28] LABS: Albumin Globulin Ratio 0.6 (0.9-2); Bilirubin,Total 1.1 mg/dl (0.2-1); Globulin 5.3 gm/dl (2.5-4.0); Total Protein 8.7 gm/dl (6.4-8.2)
[2019-08-08 18:35] LABS: INR 1.1 (0.9-1.1); Partial Thromboplastin Ratio 1.2; Partial Thromboplastin Time 31.2 Seconds (21.0-31.0); Prothrombin Time 11.4 Seconds (9.0-12.0)
[2019-08-08] MEDS ORDERED: CEFEPIME 2,000 MG in SYRINGE 7.5 ML IV STA (18:57)
[2019-08-08 19:02] LABS: Appearance Urine Turbid (Clear); Bacteria Urine Automated 4+ (Negative); Bilirubin Urine Negative (Negative); Blood Urine 2+ (Negative); Color Urine Yellow; Glucose Urine UA Negative (Negative); Ketones Urine Negative (Negative); Leukocyte Esterase Urine 3+ (Negative); Nitrite Urine Positive (Negative); Protein Urine 2+ (Negative); Specific Gravity Urine 1.018 (1.000-1.030); Urobilinogen Urine Negative (Negative); WBC Urine Automated >30 /hpf (0-5); pH Urine 5.5 (4.5-7.5)
[2019-08-08] MEDS ORDERED: PIPERACILLIN/TAZOBACTAM 4.5 GM/120ML D5W IV STA (19:10)
--- NOTE | 2019-08-08 20:43 | Emergency Department Note ---
Entered by Marisol Eastman acting as a scribe for João Mae MD History of Present Illness General Chief complaint: Urinary Symptoms Stated complaint: PUS PRESENT WITH URINATION Time Seen by Provider: 08/08/19 16:41 Source: patient Mode of arrival: ambulatory Limitations: no limitations History of Present Illness Onset (ago): day(s) 3 Location: genitals (urinary system) Radiation: non-radiation Pain Consistency: + constant Relieved By: + none Exacerbated By: + none Associated symptoms: + fever/chills; no chest pain, no rash and no shortness of breath Treatments prior to arrival: none The patient is a 74 year old male who presents to the ED with complaints of urinary symptoms. He states he self-catheterizes for a history of urinary retention and normally gets out 500 CC's twice a day. For the past few days, he has felt fatigued and is now seeing pus with urination. He states is temperature earlier today was 100 degrees. He denies any lightheadedness or dizziness. He does see Dr. Adams and reports he told him to come here to the ED this evening. He denies any chest pain or shortness of breath. He denies any rashes or breakouts. Home Medications Home Medications Medication Instructions Recorded Confirmed Type clopidogrel 75 mg tablet 75 mg PO DAILY #30 tab 07/18/19 08/08/19 History finasteride 5 mg tablet 5 mg PO DAILY #30 tab 07/18/19 08/08/19 History metoprolol tartrate 25 mg tablet 25 mg PO BID tab 07/18/19 08/08/19 History pravastatin 40 mg tablet 40 mg PO DAILY tab 07/18/19 08/08/19 History tamsulosin 0.4 mg capsule 0.4 mg PO DAILY 07/18/19 08/08/19 History Allergies Allergy/AdvReac Type Severity Reaction Status Date / Time Iodinated Contrast Media Allergy Intermediate Hives per Verified 08/08/19 17:51 patient DEER DANDER Allergy Unknown Unknown Uncoded 08/08/19 17:51 Past Med/Surg History Medical History Urinary retention Surgical History History of heart valve replacement with porcine valve Social History Preferred Language: Mongolian Communication Ability: Effective Video Game Animator Required: No Beliefs That Will Affect Care: None Current Living Situation: Alone Other Information That Helps Us Care for You: Yes ( living in [place]) Feels Safe at Home: Yes Safety Concerns: Feels Safe At This Time Smoking Status: Never smoker Do You Dip or Chew Tobacco: No ; Hx Alcohol Use: No Hx Substance Use: No Review of Systems See HPI for pertinent positives & negatives. and A total of 10 systems reviewed and were otherwise negative Physical Exam Vital Signs Vital Signs - 24 hr 08/08/19 16:04 08/08/19 16:43 08/08/19 18:48 Temperature 37 C Temperature Source Oral Sepsis Recent Fever Within 48 Hours No Sepsis New/Unexplained Change in Mental Status No Sepsis Action Taken by Nursing No Action Required Pulse Rate 108 H 102 H Respiratory Rate 20 24 Respiratory Effort / Characteristics Non-Labored Respiratory Depth Normal Blood Pressure 174/68 H 180/105 H Blood Pressure Mean 103 130 Pulse Oximetry 97 93 Oxygen Delivery Method Room Air Room Air 08/08/19 19:00 08/08/19 19:30 08/08/19 20:02 Temperature Temperature Source Sepsis Recent Fever Within 48 Hours Sepsis New/Unexplained Change in Mental Status Sepsis Action Taken by Nursing Pulse Rate 97 H 101 H 100 H Respiratory Rate 23 20 23 Respiratory Effort / Characteristics Respiratory Depth Blood Pressure 157/75 H 143/77 H Blood Pressure Mean 102 99 Pulse Oximetry 91 97 95 Oxygen Delivery Method Room Air Room Air Room Air General: Non-ill appearing older male who is complaining of urinary symptoms. HEENT: Normal cephalic atraumatic. Pupils are equal round and reactive to light. Extraocular movements are intact. Oropharynx is pink with moist mucous membranes. No swelling of the mouth lips or tongue. Neck: Supple with a midline trachea. No meningeal signs or stiffness, no JVD or bruits. No Stridor. Chest: Chest has scar from previous heart surgery. Clear to auscultation bilaterally. No wheezes or rhonchi. No increased work of breathing. Heart: regular rate and rhythm. Abdomen: Soft nontender, nondistended without rebound guarding or rigidity. Extremities: No cyanosis clubbing or edema. No calf tenderness or asymmetry Spine/Back. Non tender to palpation. No CVA tenderness Skin: Good turgor without rashes. Neurologic exam: Cranial nerves two through 12 are intact. Motor and sensation are intact and symmetrical throughout. Course 1642: The patient was evaluated in room C12B and a complete history and physical were performed. 1646: I spoke with Dr. Adams, Internal Medicine. He is worried about possible sepsis. The patient has been taking 1500 mg of Amoxicillin per orders. 5: I reevaluated the patient. He has self-catheterized. 1909: I discussed the patients case with [facility]. The patient will be further evaluated. 1920: I discussed the patients case with Dr. Swenson, [facility] Hospitalist. The patient will be further evaluated. 1924: I reevaluated the patient. I discussed my recommendation he remain in the hospital for further evaluation and management and he verbalized complete understanding and agreement. 1999: I spoke to the patient. He denies any history of prostate cancer. Consultations Consultation #1: I spoke with Dr. Adams, Internal Medicine. He is worried about possible sepsis. The patient has been taking 1500 mg of Amoxicillin per orders. Time: 16:46 Consultation #2: I discussed the patients case with Dr. Boggs, [facility]. The patient will be further evaluated. Time: 19:10 Consultation #3: I discussed the patients case with Dr. Swenson, [facility] Hospitalist. The patient will be further evaluated. Time: 19:21 Administered Medications Sodium Chloride (Nss 1000ml) 1,000 mls @ 999 mls/hr IV .Q1H1M [id number] Stop: 08/08/19 22:33 Last Admin: 08/08/19 21:52 Dose: 999 mls/hr Documented by: [id number] Discontinued Medications Sodium Chloride (Nss 1000ml) 1,000 mls @ 999 mls/hr IV .Q1H1M ONE Stop: 08/08/19 19:21 Last Infusion: 08/08/19 19:51 Dose: 0 mls/hr Documented by: [id number] Admin: 08/08/19 18:50 Dose: 999 mls/hr Documented by: [id number] Sodium Chloride (Nss 1000ml) 1,000 mls @ 125 mls/hr IV .Q8H [id number] Stop: 09/07/19 21:29 Last Admin: 08/08/19 21:49 Dose: Not Given Documented by: [id number] Piperacillin Sod/Tazobactam Sod (Zosyn) 4.5 gm IV NOW STA Stop: 08/08/19 19:11 Last Admin: 08/08/19 19:16 Dose: 4.5 gm Documented by: [id number] Medical Decision Making Differential Diagnosis The differential diagnoses considered include UTI, sepsis, urinary retention, electrolyte or metabolic abnormality. Medical Records Attestation: I reviewed the patient's medical records. Home Medications Current Medication List: was personally reviewed by me Laboratory Data Attestation: I reviewed the patient's lab results. Result diagrams: 08/08/19 21:42 08/08/19 17:43 Lab Results 08/08/19 08/08/19 08/08/19 Range/Units 17:43 17:43 17:43 WBC 16.03 H (4.8-10.8) K/uL RBC 4.17 L (4.7-6.1) M/uL Hgb 13.0 L (14.0-18.0) g/dL Hct 38.4 L (42-52) % MCV 92.1 (80-100) fL MCH 31.2 (25-34) pg MCHC 33.9 (32-36) g/dL RDW Std Deviation 44.5 (36.4-46.3) fL RDW Coeff of Isaura 13.3 (11.5-14.5) % Plt Count 262 (130-400) K/uL MPV 10.6 H (7.4-10.4) fL Immature Gran % (Auto) 0.3 % Neut % (Auto) 76.6 % Lymph % (Auto) 11.0 % [place] % (Auto) 12.0 % Eos % (Auto) 0.0 % Baso % (Auto) 0.1 % Immature Gran # (Auto) 0.05 H (0.00-0.02) K/uL Neut # (Auto) 12.28 H (1.4-6.5) K/uL Lymph # (Auto) 1.76 (1.2-3.4) K/uL [place] # (Auto) 1.92 H (0.11-0.59) K/uL Eos # (Auto) 0.00 (0-0.5) K/uL Baso # (Auto) 0.02 (0-0.2) K/uL PT 11.4 (9.0-12.0) Seconds INR 1.1 (0.9-1.1) APTT 31.2 H (21.0-31.0) Seconds PTT Ratio 1.2 Sodium 132 L (136-145) mmol/L Potassium 3.8 (3.5-5.1) mmol/L Chloride 95 L (98-107) mmol/L Carbon Dioxide 28 (21-32) mmol/L Anion Gap 9.0 (3-11) BUN 24 H (7-18) mg/dl Creatinine 2.00 H (0.6-1.4) mg/dl Est Cr Clr Drug Dosing 35.2 ml/min Est GFR ( Amer) 37.0 Est GFR (Non-Af Amer) 31.9 BUN/Creatinine Ratio 12.2 (10-20) Glucose 106 H (70-99) mg/dl Lactate (0.4-2.0) mmol/L Calcium 9.2 (8.5-10.1) mg/dl Total Bilirubin 1.1 H (0.2-1) mg/dl AST 33 (15-37) U/L ALT 30 (12-78) U/L Alkaline Phosphatase 115 (45-117) U/L Total Protein 8.7 H (6.4-8.2) gm/dl Albumin 3.4 (3.4-5.0) gm/dl Globulin 5.3 H (2.5-4.0) gm/dl Albumin/Globulin Ratio 0.6 L (0.9-2) Prostate Specific Ag (0-4) ng/ml Urine Color Urine Appearance (Clear) Urine pH (4.5-7.5) Ur Specific [place] (1.000-1.030) Urine Protein (Negative) Urine Glucose (UA) (Negative) Urine Ketones (Negative) Urine Blood (Negative) Urine Nitrite (Negative) Urine Bilirubin (Negative) Urine Urobilinogen (Negative) Ur Leukocyte Esterase (Negative) Urine WBC (Auto) (0-5) /hpf Urine RBC (Auto) (0-4) /hpf U Hyaline Cast (Auto) (0-5) /lpf U Epithel Cells (Auto) (0-5) /lpf Urine Bacteria (Auto) (Negative) 08/08/19 08/08/19 08/08/19 Range/Units 17:43 17:43 18:52 WBC (4.8-10.8) K/uL RBC (4.7-6.1) M/uL Hgb (14.0-18.0) g/dL Hct (42-52) % MCV (80-100) fL MCH (25-34) pg MCHC (32-36) g/dL RDW Std Deviation (36.4-46.3) fL RDW Coeff of Isaura (11.5-14.5) % Plt Count (130-400) K/uL MPV (7.4-10.4) fL Immature Gran % (Auto) % Neut % (Auto) % Lymph % (Auto) % [place] % (Auto) % Eos % (Auto) % Baso % (Auto) % Immature Gran # (Auto) (0.00-0.02) K/uL Neut # (Auto) (1.4-6.5) K/uL Lymph # (Auto) (1.2-3.4) K/uL [place] # (Auto) (0.11-0.59) K/uL Eos # (Auto) (0-0.5) K/uL Baso # (Auto) (0-0.2) K/uL PT (9.0-12.0) Seconds INR (0.9-1.1) APTT (21.0-31.0) Seconds PTT Ratio Sodium (136-145) mmol/L Potassium (3.5-5.1) mmol/L Chloride (98-107) mmol/L Carbon Dioxide (21-32) mmol/L Anion Gap (3-11) BUN (7-18) mg/dl Creatinine (0.6-1.4) mg/dl Est Cr Clr Drug Dosing ml/min Est GFR ( Amer) Est GFR (Non-Af Amer) BUN/Creatinine Ratio (10-20) Glucose (70-99) mg/dl Lactate 1.5 (0.4-2.0) mmol/L Calcium (8.5-10.1) mg/dl Total Bilirubin (0.2-1) mg/dl AST (15-37) U/L ALT (12-78) U/L Alkaline Phosphatase (45-117) U/L Total Protein (6.4-8.2) gm/dl Albumin (3.4-5.0) gm/dl Globulin (2.5-4.0) gm/dl Albumin/Globulin Ratio (0.9-2) Prostate Specific Ag 11.500 H (0-4) ng/ml Urine Color Yellow Urine Appearance Turbid A (Clear) Urine pH 5.5 (4.5-7.5) Ur Specific [place] 1.018 (1.000-1.030) Urine Protein 2+ H (Negative) Urine Glucose (UA) Negative (Negative) Urine Ketones Negative (Negative) Urine Blood 2+ H (Negative) Urine Nitrite Positive A (Negative) Urine Bilirubin Negative (Negative) Urine Urobilinogen Negative (Negative) Ur Leukocyte Esterase 3+ H (Negative) Urine WBC (Auto) >30 H (0-5) /hpf Urine RBC (Auto) 10-30 H (0-4) /hpf U Hyaline Cast (Auto) 1-5 (0-5) /lpf U Epithel Cells (Auto) 5-10 H (0-5) /lpf Urine Bacteria (Auto) 4+ H (Negative) Imaging Data Radiologist's Impression: Radiology results as stated below per my review and the radiologist's interpretation: CT SCAN OF THE ABDOMEN AND PELVIS WITHOUT CONTRAST CLINICAL HISTORY: Renal insufficiency. Possible hydronephrosis. PAIN COMPARISON STUDY: December 2017 TECHNIQUE: CT scan of the abdomen and pelvis was performed from the lung bases to the proximal femurs. Images are reviewed in the axial, sagittal, and coronal planes. IV contrast was not administered for this examination. A dose lowering technique was utilized adhering to the principles of ALARA. CT DOSE: 1114.89 mGy.cm FINDINGS: Lower chest: There are minor dependent atelectatic changes Liver: The unenhanced liver is normal in size, contour, and attenuation. There is no intrahepatic biliary ductal dilatation. Gallbladder: Unremarkable. Spleen: Normal in size and attenuation. Pancreas: Unremarkable. Adrenal glands: Unremarkable. Kidneys: There is severe chronic right-sided hydronephrosis and hydroureter with ureteral dilatation down to the level of the ureterovesical junction. No calculus is visualized. Also evident is moderate left-sided hydronephrosis and hydroureter with ureteral dilatation down to the level of the ureterovesical junction. Again no calculi are visualized. Bowel: There are no transition zone to indicate bowel obstruction. There is a very large right inguinal hernia containing both colon and small bowel. There are no current obstructive changes. There is no evidence of acute appendicitis. There is no evidence of acute diverticulitis. Peritoneum: There is no intraperitoneal free air or abdominal ascites. Vasculature: The abdominal aorta is normal in course and caliber. Adenopathy: None. Pelvic viscera: The prostate is enlarged. There is mild bladder distention. There is minimal bladder wall thickening. Skeletal structures: No destructive osseous lesions are seen. IMPRESSION: 1. No evidence of bowel obstruction. No evidence of free air 2. No acute inflammatory changes 3. 20 cm right inguinal/scrotal hernia containing both large and small bowel loops 4. Progressive severe right-sided hydronephrosis and hydroureter down to the [place] of the ureterovesical junction. Progressive moderate left-sided hydronephrosis and hydroureter down to the level of the ureterovesical junction. No obstructing calculi identified 5. Prostatomegaly, mild bladder distention and bladder wall thickening. Electronically signed by: Arnie Waite M.D. 08/08/2019 6:08 PM Blood Pressure Blood Pressure Findings: Elevated blood pressure Blood Pressure Disposition: further management by hospitalist [facility] Narrative This patient comes in as described above. He has a very complex medical history and does self catheterize himself. He says that it has been purulent over the last several days. he feels weak and tired but denies any acute pain. He denies any abdominal or back pain. He denies any definite fever. He has a history of having significant infections and sepsis in the past. He apparently had enterococcus at one point. His vital signs are stable here . he is normotensive however given his history of concerned about sepsis/infection. A catheterized urine was obtained from self cath. IV access established hydrated liter normal IV saline bolus. He was given Zosyn 4.5 g IV. I discussed this with they have our ED pharmacist recommended this coverage. His creatinine is elevated at 2 compared to baseline of about 1.6. CAT scan shows bilateral hydronephrosis worse on the right. Apparently this is chronic but has gotten worse. His lactic acid is normal. I discussed case with Dr. Boggs who recommends putting a Pittman catheter in him IV hydrating him and give him IV antibiotics. He did not feel he needed acute stent or intervention he also wanted to add a PSA. I talked to the patient he says that he has never had prostate cancer. The patient is remained he dynamically stable. He will be admitted for IV antibiotics, IV hydration, further treatment and evaluation, urologic consultation. I have consulted Dr. Durbin to see him in the ER for admission/observation. Impression & Plan Sepsis, UTI (urinary tract infection), Hydronephrosis, Weakness Discharge Plan Visit Data *Final* Discharge Date/Time: 08/08/19 21:11 Chief Complaint: Urinary Symptoms Stated Complaint: PUS PRESENT WITH URINATION ED Provider: João Mae Discharge Problem: Sepsis, UTI (urinary tract infection), Hydronephrosis, Weakness Patient Disposition: Admitted As Inpatient Discharge Instructions Interventions: ED Discharge Assessment Last Done: 08/08/19 21:11 The scribe's documentation has been prepared under my direction and personally reviewed by me in its entirety. I confirm that the note above accurately refle cts all work, treatment, procedures, and medical decision making performed by me.
--- NOTE | 2019-08-08 21:02 | History & Physical Report ---
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 - Covering for Gram neg, Gram pos and E. Faecalis with Zosyn + Dapto - will narrow antibiotics after urine culture returns bacterial species - blood cultures pending (2) UTI (urinary tract infection): - extensive UTI hx previously treated with Daptomycin, Vanc, Zosyn at different times - UA showed turbid dirty urine with LE, nitrites and 2+ blood - urine culture pending - jin in place (3) Urinary retention: - bilateral hydronephrosis and ureteral dilatation shown on Abd CT, as well as mild bladder distention and prostate enlargement - likely BPH leading to bladder outlet obstruction, leading to fluid retention and ensuing hydronephrosis and UTI - urology consult placed (4) History of heart valve replacement with porcine valve: - 75 mg Plavix daily - implanted 12 years ago (5) Hydronephrosis: History of Present Illness Chief Complaint: pus in urine, fatigue Primary Care Provider: Franco Vazquez MD 73 yo M with PMH BPH, recurrent UTI, scrotal hernia, porcine aortic valve rep air (12 ys ago) here with complaints of pus in urine. Says he has been feeling weak and lethargic for the past week, with decreased appetite since 08/04. Pt has been straight cathing himself twice a day for the past year and has had multiple inpatient treatments for UTI and bacteremia with E. Faecalis. Most recently was treated at another hospital 3 weeks ago for the same symptoms he is presenting with today, and at the time was treated with ciprofloxacin. Denies burning or pain with urination. Attests to difficulty producing urine. Regularly has 500 cc of urine produced from straight cath after trying to urinate on his own already. Denies recent fever or chills, though says he was "freezing" when he went down to the CT scanner earlier this evening. Denies N/V, chest pain, sob, headache, blurring vision. Allergies Allergy/AdvReac Type Severity Reaction Status Date / Time Iodinated Contrast Media Allergy Intermediate Hives per Verified 08/08/19 17:51 patient DEER DANDER Allergy Unknown Unknown Uncoded 08/08/19 17:51 Home Medications Home Medications Medication Instructions Recorded Confirmed Type clopidogrel 75 mg tablet 75 mg PO DAILY #30 tab 07/18/19 08/08/19 History finasteride 5 mg tablet 5 mg PO DAILY #30 tab 07/18/19 08/08/19 History metoprolol tartrate 25 mg tablet 25 mg PO BID tab 07/18/19 08/08/19 History pravastatin 40 mg tablet 40 mg PO DAILY tab 07/18/19 08/08/19 History tamsulosin 0.4 mg capsule 0.4 mg PO DAILY 07/18/19 08/08/19 History Past Med/Surg History Medical History Urinary retention Surgical History History of heart valve replacement with porcine valve Social History Preferred Language: [place] Communication Ability: Effective Microwave Remote Sensing Scientist Required: No Beliefs That Will Affect Care: None Current Living Situation: Alone Other Information That Helps Us Care for You: Yes ( living in [place]) Feels Safe at Home: Yes Safety Concerns: Feels Safe At This Time Smoking Status: Never smoker Do You Dip or Chew Tobacco: No ; Hx Alcohol Use: No Hx Substance Use: No Review of Systems Constitutional: + chills, + fatigue, + weakness and + anorexia; no fever and no sweats Eyes: no worsening vision Respiratory: no cough and no dyspnea Cardiovascular: no chest pain and no palpitations Gastrointestinal: no abdominal pain, no nausea, no vomiting, no constipation and no diarrhea/loose stools Genitourinary: + difficulty urinating and + scrotal swelling; no dysuria, no urinary frequency and no urinary incontinence Physical Exam Constitutional: + ill appearing, cooperative, comfortable and + overweight; no acute distress Respiratory: normal respiratory effort; no respiratory distress, does not use accessory muscles and no cough Auscultation: lungs clear to auscultation bilaterally; no crackles, no rhonchi and no wheezes Cardiovascular: Rate/Rhythm: regular rate and + tachycardic Heart Sounds: normal S1, normal S2 and + murmur (systolic 3/6 murmur present at 4th L intercostal space) Gastrointestinal (Abdomen): Inspection/Auscultation: abdomen normal to inspection; abdomen not distended and no abdominal edema Percussion/Palpation: abdomen soft; abdomen nontender (no suprapubic tenderness) and no guarding Genitourinary: + scrotal swelling (large scrotal hernia) Results & Data Vital Signs (Past 12 Hours) Vital Signs Temp Pulse Resp BP Pulse Ox 08/08/19 19:00 97 H 23 157/75 H 91 08/08/19 18:48 102 H 24 180/105 H 93 08/08/19 16:04 37 C 108 H 20 174/68 H 97 Code Status & VTE Plan VTE Prophylaxis Plan VTE Prophylaxis will be ordered: Yes Supervising Physician Co-Signing Physician Notes Pt seen/examined in conjunction with resident MD Kyaw Mcdonough, Orders and plan of admission formulated with resident. 73 y/o M Hx HTN, HLD, BPH with retention and recurrent UTIs. Developed fevers, dysuria, purulent urine. UA is +. Pt was recently treated for resistant E Faecalis. OE: AAO x3 S1,2 R CTAB NT, ND No CCE P: Placed on Zosyn/Dapto per prior cultures and Tx No additional changes affected to current meds PG Care Time/CCT Total # of Minutes Spent Total Time Spent with Patient: Total time spent is greater than 50% in coordination of care (as documented) at patient's floor/unit and/or counseling patient: Resident Activity Tracking Resident Involvement: Resident Care Provided Care Provided: Adult Hospital Medicine
[2019-08-08] MEDS ORDERED: SODIUM CHLORIDE 0.9% 1000ML 1,000 ML IV SCH ×2 (21:30→21:33)
[2019-08-08] MEDS ORDERED: ONDANSETRON INJ 2 MG/ML 2 ML VIAL IV PRN (21:33)
[2019-08-08] MEDS ORDERED: POLYETHYLENE (MIRALAX) 17 GM PACK PO PRN (21:33)
[2019-08-08] MEDS ORDERED: PIPERACILL/TAZOBAC CONSULT ACTIVE PRN (21:33)
[2019-08-08] MEDS ORDERED: DAPTOMYCIN CONSULT ACTIVE PRN (21:50)
[2019-08-08] MEDS ORDERED: DAPTOmycin 450 MG in SYRINGE 0 ML IV SCH (22:00)
[2019-08-08 22:06] LABS: Basophils # (auto) 0.02 K/uL (0-0.2); Basophils % (auto) 0.1 %; Hematocrit (blood only) 36.1 % (42-52); Immature Granulocytes # (auto) 0.05 K/uL (0.00-0.02); Immature Granulocytes % (auto) 0.3 %; Lymphocytes # (auto) 1.33 K/uL (1.2-3.4); Lymphocytes % (auto) 8.4 %; Mean Corpuscular Hemoglobin 30.3 pg (25-34); Mean Corpuscular Hgb Conc 33.2 g/dL (32-36); Mean Corpuscular Volume 91.2 fL (80-100); Mean Platelet Volume 10.5 fL (7.4-10.4); Monocytes # (auto) 2.33 K/uL (0.11-0.59); Monocytes % (auto) 14.7 %; Neutrophils # (auto) 12.17 K/uL (1.4-6.5); Neutrophils % (auto) 76.5 %; Platelet Count 219 K/uL (130-400); RDW Coefficient of Variation 13.2 % (11.5-14.5); RDW Standard Deviation 44.1 fL (36.4-46.3); Red Blood Count 3.96 M/uL (4.7-6.1)
[2019-08-08] MEDS ORDERED: HYDROCODONE/ACETAMINOPHEN 10/325 TAB PO PRN (22:13)
[2019-08-08] MEDS: METOPROLOL TARTRATE 25 MG TAB PO SCH (22:51)
[2019-08-08] MEDS: SODIUM CHLORIDE 0.9% 1000ML 1,000 ML IV SCH (22:51)
[2019-08-08] MEDS: ACETAMINOPHEN 325 MG TAB PO PRN (23:10)
[2019-08-08] MEDS: PIPERACILLIN/TAZOBACTAM 3.375 GM in DEXTROSE 5% 100 ML IV SCH (23:49)
[2019-08-09 05:57] LABS: Albumin Level 2.7 gm/dl (3.4-5.0); BUN Creatinine Ratio 12.7 (10-20); Calcium 8.3 mg/dl (8.5-10.1); Est GFR (African American) 42.3; Est GFR (Non-African American) 36.5
[2019-08-09 06:00] LABS: Albumin Globulin Ratio 0.6 (0.9-2); Bilirubin,Total 1.1 mg/dl (0.2-1); Globulin 4.3 gm/dl (2.5-4.0)
[2019-08-09] MEDS: SODIUM CHLORIDE 0.9% 1000ML 1,000 ML IV SCH ×3 (07:03→22:40)
[2019-08-09] MEDS: PIPERACILLIN/TAZOBACTAM 3.375 GM in DEXTROSE 5% 100 ML IV SCH ×2 (08:05→15:26)
[2019-08-09] MEDS: METOPROLOL TARTRATE 25 MG TAB PO SCH ×2 (08:06→21:00)
[2019-08-09] MEDS: CLOPIDOGREL BISULFATE 75 MG TAB PO SCH (08:06)
[2019-08-09] MEDS: FINASTERIDE 5 MG TAB PO SCH (08:06)
[2019-08-09] MEDS: TAMSULOSIN HCL 0.4 MG CAP PO SCH (08:06)
[2019-08-09] MEDS: ENOXAPARIN INJ 40 MG/0.4 ML SYR SQ SCH (08:07)
[2019-08-09 08:10] LABS: Basophils # (auto) 0.01 K/uL (0-0.2); Basophils % (auto) 0.1 %; Hematocrit (blood only) 34.7 % (42-52); Hemoglobin 11.5 g/dL (14.0-18.0); Immature Granulocytes # (auto) 0.03 K/uL (0.00-0.02); Immature Granulocytes % (auto) 0.2 %; Lymphocytes # (auto) 1.26 K/uL (1.2-3.4); Lymphocytes % (auto) 7.7 %; Mean Corpuscular Hemoglobin 31.3 pg (25-34); Mean Corpuscular Hgb Conc 33.1 g/dL (32-36); Mean Corpuscular Volume 94.3 fL (80-100); Mean Platelet Volume 10.7 fL (7.4-10.4); Monocytes # (auto) 2.16 K/uL (0.11-0.59); Monocytes % (auto) 13.1 %; Neutrophils % (auto) 78.9 %; Platelet Count 222 K/uL (130-400); RDW Coefficient of Variation 13.4 % (11.5-14.5); RDW Standard Deviation 46.3 fL (36.4-46.3); Red Blood Count 3.68 M/uL (4.7-6.1); White Blood Count 16.46 K/uL (4.8-10.8)
--- NOTE | 2019-08-09 10:14 | Family Medicine Progress Note ---
Date of Service August 09, 2019 Assessment & Plan (1) Sepsis: 73 yo M w/ pMHx. of recurrent complicated UTI Initially met criteria 2/4 SIRS criteria (tachycardia, leukocytosis), likely secondary to UTI/Urosepsis; 0 qSOFA criteria Urosepsis - received 1 L NS bolus in ED, second L bolus ordered with maintenance NS fluids to follow - initial lactate normal - UA showed 2+blood, nitrites and LE - Hx. Enterococcus Faecalis, last treated with Daptomycin here in 01/2019. - initially on Zosyn + Dapto - gram negative species, awaiting sensitivities - narrowed abx. to Unasyn - blood cultures pending UTI - Urology following appreciate recs - extensive UTI hx. 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 Feeling better but still a degree of sweats. Still a degree of malaise. But definitely notes he is feeling better. Vitals noted, in general he is awake and alert pleasant no distress. HEENT normal cephalic atraumatic mucous members moist. Breathing unlabored no accessory muscle use good effort. Urinary tract infection with sepsis present on admission related to self- catheterizationfortunately appears to be improving. Given that he still having some sweats, and his white count is still up although improving, we would like to wait until we have final sensitivities to work towards home. Certainly with his improvement, and no overly significant risk factors for Pseudomonas, we can narrow his antibiotics from Zosyn to Unasyn, and obviously with a growing gram- negative's we have discontinued the daptomycin. Continue supportive care. Subjective Mr. Jones was doing well this morning. We went over his CT. He explained that he would urinate normally 600-800 cc a day and would remove an additional 400- 500 cc a day at home with a straight cath. He discussed that he was not planning a surgery with his hernia until his returns from [facility]. His is taking care of her sick family members. Review of Systems Constitutional: no fever and no chills Respiratory: no cough denies shortness of breath Cardiovascular: no chest pain and no palpitations Gastrointestinal: no nausea and no vomiting Genitourinary: no dysuria and no urinary frequency Physical Exam Constitutional: well developed and well nourished; no acute distress Respiratory: normal respiratory effort, lungs clear to auscultation Cardiovascular: porcine valve heard clearly with a normal rate and not extra sounds appreciated. Gastrointestinal (Abdomen): normal bowel sounds, soft, nontender, no hepatosplenomegaly Genitourinary: Very large hernia in left testicle aprox. 20 cm pus at the meatus. Jin in place Results & Data Vital Signs (Past 12 Hours) Vital Signs Temp Pulse Pulse Resp BP Pulse Ox 08/09/19 07:09 37.2 C 85 18 137/68 92 08/09/19 07:00 85 08/09/19 03:38 37.9 C H 77 16 136/74 93 08/08/19 23:50 38.1 C H 08/08/19 23:14 110 H 08/08/19 23:13 39.3 C H 99 H 20 151/84 H 93 08/08/19 22:19 90 PG Care Time/CCT Total # of Minutes Spent Total Time Spent with Patient: Total time spent is greater than 50% in coordination of care (as documented) at patient's floor/unit and/or counseling patient: Resident Activity Tracking Resident Involvement: Resident Care Provided Care Provided: Adult Hospital Medicine (1) UTI (urinary tract infection) Hematuria presence: without hematuria Urinary tract infection type: site unspecified Qualified Code(s): N39.0 - Urinary tract infection, site not specified (2) Hydronephrosis Hydronephrosis type: unspecified Qualified Code(s): N13.30 - Unspecified hydronephrosis (3) Sepsis Acute renal failure type: unspecified Sepsis acute organ dysfunction status: with acute organ dysfunction Sepsis type: sepsis due to unspecified organism Severe sepsis acute organ dysfunction type: acute renal failure Severe sepsis shock status: without septic shock Qualified Code(s): A41.9 - Sepsis, unspecified organism; R65.20 - Severe sepsis without septic shock; N17.9 - Acute kidney failure, unspecified
--- NOTE | 2019-08-09 11:01 | Urology Consultation ---
Date of Consultation August 09, 2019 Assessment & Plan (1) UTI (urinary tract infection): 73 YO male with chronic urinary retention, sepsis, UTI, hydronephrosis, SHAMAR, elevated PSA. Discussed with patient. He is agreeable to maintain his indwelling Pittman until further outpatient URO evaluation. Discussed high likelihood of outpatient surgical intervention for prostatic enlargement as current regimen of CIC is not sufficient. Patient is aware of new elevated PSA and need for further follow up. PSA 11.5, corrected to 23 with Finasteride. Antibiotics per primary team. Maintain Pittman. Will coordinate outpatient URO follow up. Thank you for allowing us to participate in this patients inpatient care. Please contact our service if we can assist further. (2) Hydronephrosis: (3) Urinary retention: (4) Elevated PSA: History of Present Illness Attending Physician: Bladimir Hobson, History of Present Illness Dr. Chaudhari is a 73 YO male with chronic urinary retention, currently managed with CIC at home, admitted to the hospital for sepsis, UTI, hydronephrosis, SHAMAR. Last evaluated by Dr. Dolan in January 2018 when he was advised to consider prostatic surgical intervention and/or increase his catheterization frequency. Patient reported to the ER for evaluation last evening due to feeling unwell x 1 week. A Pittman was placed upon arrival and remains in place. SHAMAR slightly elevated from patient baseline. CT reviewed demonstrates SANDOVAL and large inguinal hernia, no stones or upper tract obstruction. Elevated PSA of 11.5 is noted, corrected to 23 when accounting for Finasteride. Patient reports feeling okay today. Pittman not too bothersome. Reports intermittent fevers/chills. Tolerating diet without nausea. When asked about his CIC schedule at home admits to "falling behind schedule" and cathing ~1x per day. Is taking Finasteride and Tamsulosin at home. Allergies Allergy/AdvReac Type Severity Reaction Status Date / Time Iodinated Contrast Media Allergy Intermediate Hives per Verified 08/08/19 17:51 patient DEER DANDER Allergy Unknown Unknown Uncoded 08/08/19 17:51 Home Medications Home Medications Medication Instructions Recorded Confirmed Type clopidogrel 75 mg tablet 75 mg PO DAILY #30 tab 07/18/19 08/08/19 History finasteride 5 mg tablet 5 mg PO DAILY #30 tab 07/18/19 08/08/19 History metoprolol tartrate 25 mg tablet 25 mg PO BID tab 07/18/19 08/08/19 History pravastatin 40 mg tablet 40 mg PO DAILY tab 07/18/19 08/08/19 History tamsulosin 0.4 mg capsule 0.4 mg PO DAILY 07/18/19 08/08/19 History Patient History Medical History Urinary retention Surgical History History of heart valve replacement with porcine valve Social History Preferred Language: Tajik Communication Ability: Effective 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 Physical Exam Physical Exam: NAD. Resp effort normal. No JVD. Abd nondistended. : Pittman in place, patent, draining yellow urine - no hematuria noted. A&Ox3, appropriate affect. Results & Data Vital Signs (Past 12 Hours) Vital Signs Temp Pulse Pulse Resp BP Pulse Ox 08/09/19 07:09 37.2 C 85 18 137/68 92 08/09/19 07:00 85 08/09/19 03:38 37.9 C H 77 16 136/74 93 08/08/19 23:50 38.1 C H 08/08/19 23:14 110 H 08/08/19 23:13 39.3 C H 99 H 20 151/84 H 93 PG Care Time/CCT Total # of Minutes Spent Total Time Spent with Patient: Total time spent is greater than 50% in coordination of care (as documented) at patient's floor/unit and/or counseling patient: (1) UTI (urinary tract infection) Hematuria presence: without hematuria Urinary tract infection type: site unspecified Qualified Code(s): N39.0 - Urinary tract infection, site not specified (2) Hydronephrosis Hydronephrosis type: unspecified Qualified Code(s): N13.30 - Unspecified hydronephrosis
[2019-08-09] MEDS ORDERED: PRAVASTATIN SOD 40 MG TAB PO SCH (21:00)
[2019-08-10] MEDS: AMPICILLIN/SULBACTAM SOD 1,500 MG in 0.9 % SODIUM CHLORIDE 100 ML IV SCH ×2 (00:09→05:41)
[2019-08-10] MEDS: ACETAMINOPHEN 325 MG TAB PO PRN (05:18)
[2019-08-10] MEDS: SODIUM CHLORIDE 0.9% 1000ML 1,000 ML IV SCH (06:28)
[2019-08-10 07:54] LABS: Basophils # (auto) 0.01 K/uL (0-0.2); Basophils % (auto) 0.1 %; Eosinophils # (auto) 0.04 K/uL (0-0.5); Eosinophils % (auto) 0.3 %; Hematocrit (blood only) 32.5 % (42-52); Hemoglobin 10.6 g/dL (14.0-18.0); Immature Granulocytes # (auto) 0.04 K/uL (0.00-0.02); Immature Granulocytes % (auto) 0.3 %; Lymphocytes # (auto) 1.14 K/uL (1.2-3.4); Lymphocytes % (auto) 9.8 %; Mean Corpuscular Hemoglobin 30.1 pg (25-34); Mean Corpuscular Hgb Conc 32.6 g/dL (32-36); Mean Corpuscular Volume 92.3 fL (80-100); Mean Platelet Volume 10.3 fL (7.4-10.4); Monocytes # (auto) 1.36 K/uL (0.11-0.59); Monocytes % (auto) 11.7 %; Neutrophils # (auto) 9.02 K/uL (1.4-6.5); Neutrophils % (auto) 77.8 %; Platelet Count 205 K/uL (130-400); RDW Coefficient of Variation 13.6 % (11.5-14.5); RDW Standard Deviation 46.1 fL (36.4-46.3); Red Blood Count 3.52 M/uL (4.7-6.1); White Blood Count 11.61 K/uL (4.8-10.8)
[2019-08-10] MEDS: FINASTERIDE 5 MG TAB PO SCH (08:26)
[2019-08-10] MEDS: METOPROLOL TARTRATE 25 MG TAB PO SCH (08:26)
[2019-08-10] MEDS: TAMSULOSIN HCL 0.4 MG CAP PO SCH (08:26)
[2019-08-10] MEDS: CLOPIDOGREL BISULFATE 75 MG TAB PO SCH (08:26)
[2019-08-10] MEDS: ENOXAPARIN INJ 40 MG/0.4 ML SYR SQ SCH (08:26)
[2019-08-10 08:27] LABS: Creatinine Clr Calc Pharmacy 52.1 ml/min; Est GFR (African American) 53.7; Est GFR (Non-African American) 46.3
[2019-08-10] MEDS ORDERED: cefTRIAXone SODIUM 2,000 MG in DEXTROSE 5% 50 ML IV SCH (08:30)
--- NOTE | 2019-08-10 17:31 | Discharge Summary ---
Date of Service August 10, 2019 Admission HPI Per Admitting Provider 73 yo M with PMH BPH, recurrent UTI, scrotal hernia, porcine aortic valve repair (12 ys ago) here with complaints of pus in urine. Says he has been feeling weak and lethargic for the past week, with decreased appetite since 08/04. Pt has been straight cathing himself twice a day for the past year and has had multiple inpatient treatments for UTI and bacteremia with E. Faecalis. Most recently was treated at another hospital 3 weeks ago for the same symptoms he is presenting with today, and at the time was treated with ciprofloxacin. Denies burning or pain with urination. Attests to difficulty producing urine. Regularly has 500 cc of urine produced from straight cath after trying to urinate on his own already. Denies recent fever or chills, though says he was "freezing" when he went down to the CT scanner earlier this evening. Denies N/V, chest pain, sob, headache, blurring vision. Principal Diagnosis UTI with sepsis present on admission, related to self-catheterization Urinary retention related to BPH, with appearance of chronic hydronephrosis Discharge Exam General he is awake and alert pleasant no distress. HEENT normocephalic atraumatic mucous members moist. Breathing unlabored no accessory muscle use good effort. Skin shows no rashes no pallor or icterus. Discharge Data Allergies Allergy/AdvReac Type Severity Reaction Status Date / Time Iodinated Contrast Media Allergy Intermediate Hives per Verified 08/08/19 17:51 patient DEER DANDER Allergy Unknown Unknown Uncoded 08/08/19 17:51 Consultations 08/08/19 19:19 ED Decision to Admit Stat 08/08/19 21:33 Consult Case Management - Discharge Planning Routine Consult Urology Routine Ordered Studies 08/08/19 16:51 CT abd pelvis wo con Stat Hospital Course (1) UTI (urinary tract infection): Present on admission related to self cath Klebsiella strainresistant to Zosyn and Unasyn, although patient clinically got better anyway. Gave 1 g of Rocephin today. Discharged home on a course of Ceftin ear Outpatient follow-up, treating as a complicated UTI, presumptively 7 days of antibiotics, but if he shows any ongoing fevers chills or sweats, ongoing urinary symptoms, then the course may need to be longer (2) Sepsis: Due to above present on admission and improved (3) Elevated PSA: Outpatient urology follow-up (4) Hydronephrosis: Due to urinary retention (see below) (5) Urinary retention: Relates to BPH. He will be following up with urology for other modalities to possibly help his BPH. In the meantime we discussed the need to affect good urinary drainage. He notes not self cathing nearly aggressively enough, and on H&P related only doing it about once a day. I question if maybe he is even doing it this often. We discussed home with Jin, and the risks and benefits of this versus more aggressively approaching a straight cath regimen. He understandably prefers to more aggressively approach a straight cath regimen, we discussed a minimum of every 6 hours while awake and additional as needed would be reasonable. In this respect following up a basic metabolic panel later this week, as his creatinine is as good as it has been, although still in his baseline range of stage III CKD, to follow his creatinine with a more aggressive straight cath approach will ensure that if he is failing or if things are worsening then a Jin could be placed before any significant problems arise. Total Time Total Time Spent Total Time Spent (In Minutes): >30 Discharge Plan Discharge Items Patient Disposition: Home - Self-Care Reason For Visit: HYDRONEPHROSIS,UTI,SEPSIS Discharge Diagnosis: urinary tract infection related to urinary retention Activity: Resume your previous activity Non-emergency contact: Primary Care Provider and Urologist Call non-emergency contact if: you have any medication questions, your symptoms worsen and your temperature is above 101 Follow-up/Referrals: Franco Adams MD [Primary Care Provider] - 08/13/19 11:00 am (Please, follow up with Dr. Arthur Vazquez on MondayAugust 13 at 11:00 am. *If you need to change this appointment, call the office at [phone].) Diet: Regular Addtl Attending Provider Instructions: urinary tract infection -this came about as a "perfect storm" of stagnant urinary drainage from the urinary retention and bad luck of introducing bacteria from catheterization -fortunately you're getting better nicely -having to view it as a "complicated" urinary tract infection, we'll need to treat for 7 days of antibiotics - technically today is day 1 since the prior antibiotics weren't as effective as we'd want them to be. we'll finish out the course of treatment with cefdinir (an oral third generation cephalosporin - so quite similar to the ceftriaxone) - 300mg twice a day for 6 more days, first dose in AM tomorrow (08/11/19) -as you're following up with Dr Adasm and Dr Marie, there's a small chance they may need to extend the course of treatment - but this would really only be if you're still feeling any type of constitutional symptoms (fevers, chills, sweats) to suggest the infection might still be smoldering, or if you're feeling any ongoing lower urinary tract symptoms (pain, burning, rectal pressure) to suggest that there could be a degree of prostate involvement in the infection -your blood cultures will still be "cooking" in the lab for a total of 5 days, but with no growth thus far, it's highly unlikely that you had bacteremia this time. if the blood cultures surprise us and turn positive, the biggest thing would likely just be having to extend the antibiotic course for 2 weeks (provided you're otherwise feeling better) urinary retention -this is almost certainly prostate-mediated -your urinary tract is all quite dilated, and there's evidence of a modest degree of renal insufficiency that appears to be related to back-pressure on your kidneys from the urinary retention (your baseline creatinine appears to mostly be in the 1.6-1.8 range with a eGFR of about 40-50; so quite "livable" as long as we don't allow it to get worse - affecting good urinary drainage should keep things from getting worse. we'd recommend having Dr Adams check a BMP in a week to ensure things are staying in a good range. of note, your creatinine today is as good as we've seen in quite a while --1.47 -- suggesting that having good urinary drainage can take some pressure off your kidneys and maybe still improve actual kidney function -as we discussed, a jin is a surefire way to have the urinary drainage, but comes with more inconvenience as well as more risk of repeated infection. since you weren't aggressively staying on top of a self-cath regimen, and self-cath is certainly more convenient and less risk of infection, it's quite reasonable that self-cathing more regularly should keep your urinary tract draining better - so as we discussed, probably doing it about every 6 hours when awake (as well as anytime "as needed" if you're feeling like you have to pee and not much is coming out) should do well. you'll be able to keep tabs on that in large part based on how much urine you're seeing when you cath, and if you're creatinine stays stable (or better yet, on the "improved side of stable" that we're seeing now) -since the prostate appears to be the culprit, we'll definitely want you following closely with Dr Marie (preferably starting this coming week) to look at the viability of options to get the prostate out of the way more (versus if just strategies to keep your urinary tract draining will be the best options) and to evaluate the overall health of your prostate Pending Studies at Discharge: Yes (blood cultures still in micro lab - but no growth to date) Stand-Alone Forms: My [facility] Medications and DC Order Prescriptions: New cefdinir 300 mg capsule 300 mg PO BID 6 Days Qty: 12 RF: 0 Continued finasteride 5 mg tablet 5 mg PO DAILY Qty: 30 RF: 0 metoprolol tartrate 25 mg tablet 25 mg PO BID RF: 0 clopidogrel 75 mg tablet 75 mg PO DAILY Qty: 30 RF: 0 pravastatin 40 mg tablet 40 mg PO DAILY RF: 0 tamsulosin 0.4 mg capsule 0.4 mg PO DAILY RF: 0 Discharge Orders: Discharge Order (Routine); Ordered 08/10/19 Ordered By: Bladimir Hobson Admission Data Admit Date/Time: 08/08/19 20:26 Attending Provider: Bladimir Hobson Admit Provider: Nadiya Mcdonough Primary Care Provider: Franco Adams Other Providers: Dionisio Swenson ; Gus Boggs Other Interventions: Discharge Summary Assessment (RN) Last Done: 08/10/19 10:09 DC Date/Time DO NOT enter until pt leaves facility: 08/10/19 14:29
== END 2019-08-10 14:29 | disposition home or self-care (01) | DRG 698 ==
LOC: ED 15:56 → 2W 20:26 → SUATTDRO 20:26 → 2W 21:11

== ENCOUNTER 2019-10-08 13:09 | Inpatient (IN) ==
--- NOTE | 2019-10-07 12:05 | PAT Medication Instructions ---
Medication Instructions Date of Service October 07, 2019 Home Medications clopidogrel 75 mg tablet 75 mg PO QAM finasteride 5 mg tablet 5 mg PO QAM metoprolol tartrate 25 mg tablet 25 mg PO BID pravastatin 40 mg tablet 40 mg PO QAM tamsulosin 0.4 mg capsule 0.4 mg PO DAILY aspirin [Aspirin Low Dose] 81 mg PO QAM ASK your prescriber and surgeon clopidogrel 75 mg tablet 75 mg PO QAM aspirin [Aspirin Low Dose] 81 mg PO QAM Take morning of surgery With a small sip of water, OTHERWISE NOTHING TO EAT OR DRINK AFTER MIDNIGHT: finasteride 5 mg tablet 5 mg PO QAM metoprolol tartrate 25 mg tablet 25 mg PO BID pravastatin 40 mg tablet 40 mg PO QAM tamsulosin 0.4 mg capsule 0.4 mg PO DAILY Take evening before surgery metoprolol tartrate 25 mg tablet 25 mg PO BID Other Notes If you have any questions please call us at [phone] or [phone] or [phone] or [phone]
--- NOTE | 2019-10-07 12:21 | Anesthesiology Consultation ---
Date of Service October 07, 2019 Assessment & Plan (1) Encounter for pre-operative examination: Cardiology 10/07/19 = "He is scheduled for prostate procedure tomorrow, I am not sure exactly what it is, but he seems to be doing well and I do not see a reason for further cardiac testing prior to the procedure." Chart Review Chart Review: Acceptable Risk for Surgery and Patient seen in Pre Admission Testing Teaching & Discussion Instructed NPO after midnight before surgery, except medications with 15 cc of water. Medication instructions provided according to the PAT guidelines. Plavix and ASA instructions per surgeon and prescriber. History Surgery Operation Date: 10/08/19 13:00 Proposed Procedures p Transurethral Resection Prostate - Alvarado Collazo MD Operation Date: 10/10/19 10:50 Proposed Procedures p Large Right Scrotal Hernia - Cristi Trevino MD Height/Weight Height: 5 ft 9 in Weight: 90.718 kg Allergies Allergy/AdvReac Type Severity Reaction Status Date / Time Iodinated Contrast Media Allergy Intermediate Hives per Verified 10/07/19 11:28 patient DEER DANDER Allergy Unknown Unknown Uncoded 10/07/19 11:28 Medications Home Medications Medication Instructions Recorded Confirmed Last Taken clopidogrel 75 mg tablet 75 mg PO QAM #30 tab 07/18/19 10/07/19 08/08/19 finasteride 5 mg tablet 5 mg PO QAM #30 tab 07/18/19 10/07/19 08/08/19 metoprolol tartrate 25 mg tablet 25 mg PO BID tab 07/18/19 10/07/19 08/08/19 08:00 pravastatin 40 mg tablet 40 mg PO QAM tab 07/18/19 10/07/19 08/08/19 tamsulosin 0.4 mg capsule 0.4 mg PO DAILY 07/18/19 10/07/19 08/08/19 aspirin [Aspirin Low Dose] 81 mg PO QAM 10/07/19 10/07/19 Unknown hydrocodone-acetaminophen 1 tab PO BID 10/07/19 10/07/19 Unknown Active Medications Generic Name Dose Route Start Last Admin Trade Name Freq PRN Reason Stop Dose Admin Lactated Ringer's 1,000 mls @ 15 mls/hr 10/08/19 06:00 10/08/19 13:45 Lr IV 10/09/19 05:59 15 mls/hr .Q24H RAJENDRA Administration Past Medical History Medical History Aortic stenosis (Inactive) S/P AVR with bioprosthetic valve 2011 [facility] [place] Benign prostatic hyperplasia with urinary obstruction and other lower urinary tract symptoms (Inactive) CAD (coronary artery disease) (Chronic) Presented with traumatic syncope November 2011 and 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 He went on to have an aortic root replacement with a valve and a COLLINS graft to the LAD on 11/24/[address] [facility]. Cerebrovascular disease CVA/TIA 2016--short term memory difficulties and other vague neurological symptoms prompted workup. Found to have severe carotid dz, now s/p L CEA 09/2016. Chronic kidney disease Dyslipidemia Hydronephrosis Admitted to [facility] 08/08-08/10 for this + urosepsis. 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 Pacer implanted 10/06/13. Self-catheterizes urinary bladder Urinary retention Exercise / Class Metabolic Activity II 4-5 Yardwork/Stairs/Walk up hill (Denies CP or SOB with activity, was previously very athletic but now limited by arthritis.) Past Surgical History Surgical History H/O carotid endarterectomy left History of heart valve replacement with porcine valve Hx of CABG (Resolved) [facility] [place] 2011. Failed SVG grafts (veins weren't usable). COLLINS-LAD. Hx of wisdom tooth extraction Past Anesthesia History No Hx of Anesthesia Complications and No Family Hx of Anesthesia Complications *Glidescope #3 used for 2015 CEA ("elective use" per record) History of PONV No Hx of PONV and No Hx of Motion Sickness Social History Smoking Status: Never smoker Do You Dip or Chew Tobacco: No Hx Alcohol Use: Yes Alcohol type: beer and wine alcohol intake frequency: a few times a month Hx Substance Use: No Review of Systems Pt denies any recent chest pain, shortness of breath, palpitations, cough, fever or URI. Physical Exam Vital Signs Last Vital Signs Temp 37.2 C 10/08/19 13:33 BP: 130/72 P: 80bpm SPO2: 94% RA T: 98.3 F R: 12 ENMT Mouth: + dental restorations (few single caps) and + chipped teeth (broken lower molar); no loose teeth Thyromental Distance: > or= 3.5 Finger Breadths Mallampati Class: II Neck normal visual inspection; neck extension not limited Respiratory normal respiratory effort Auscultation: lungs clear to auscultation bilaterally Cardiovascular Rate/Rhythm: regular rate and regular rhythm Heart Sounds: no murmur Vessels: no carotid bruit Extremities: no edema Testing Laboratory Results 10/07/19 12:35 10/07/19 12:35 Urine Color Yellow 10/07/19 Unknown Urine Appearance Clear (Clear) 10/07/19 Unknown Urine pH 5.5 (4.5-7.5) 10/07/19 Unknown Ur Specific [place] 1.016 (1.000-1.030) 10/07/19 Unknown Urine Protein Trace (Negative) H 10/07/19 Unknown Urine Glucose (UA) Negative (Negative) 10/07/19 Unknown Urine Ketones Negative (Negative) 10/07/19 Unknown Urine Nitrite Positive (Negative) A 10/07/19 Unknown Ur Leukocyte Esterase 2+ (Negative) H 10/07/19 Unknown Urine WBC (Auto) >30 /hpf (0-5) H 10/07/19 Unknown Urine RBC (Auto) 0-4 /hpf (0-4) 10/07/19 Unknown U Hyaline Cast (Auto) 1-5 /lpf (0-5) 10/07/19 Unknown U Epithel Cells (Auto) 0-5 /lpf (0-5) 10/07/19 Unknown Urine Bacteria (Auto) 4+ (Negative) H 10/07/19 Unknown 10/07/19 Unknown Urine Culture - Preliminary Urine,Clean Catch Gram negative bacilli GFR appears to be around baseline per record review. Electrocardiogram Date: 10/07/19 SR @ 75bpm with 1st degree AV block. NSIVCB. Cannot r/o septal infarct, age undetermined. Lateral infarct, age undetermined. Compared to EKG of 01/2018, MA interval has increased QRS axis Shifted right. *unconfirmed. Chest X-Ray Date: 10/07/19 Findings: + NAD Cardiac mediastinal and hilar silhouettes are within normal limits. Prior median sternotomy with findings suggestive of CABG. Mild hyperinflation with diaphragmatic flattening. Left subclavian pacer is unchanged. There is no pneumothorax, pleural effusion, focal airspace consolidation or overt pulmonary edema. Bones appear grossly intact. Echocardiogram Date: 01/07/18 EF: 60-65% Left ventricle is grossly normal in size. Normal left ventricular wall thickness. LV systolic function is normal. Apical wall motion abnormality may reflect pacemaker activation. The right ventricle is normal in size and functio n. Right ventricular systolic function is normal. There appears to be a well- seated bioprosthetic AVR with appropriate gradients. The aortic root and ascending aorta are not seen. Grade 1 diastolic dysfunction. Other Testing Carotid Doppler 09/11/19 IMPRESSION: 1. 50-69% stenosis of the distal right internal carotid artery as on prior exam. 2. No other evidence of hemodynamically significant stenosis seen within the carotid arteries. Pacemaker Check 10/07/19 1. Pacemaker: Working well with stable thresholds. Battery voltage shows 4.5 years remaining. Occasional very brief episodes of atrial tachycardia identified, probably increasing in frequency. 2. AV block: Although the pacer was placed for complete heart block he has had an improvement in AV conduction, he is now pacing only very rarely in the ventricle. He is also in sinus rhythm so his heart rate is controlled by his sinus node with what appears to be an appropriate heart rate distribution. Device Information Device Dependent: No Underlying Rhythm: NSR Device Type: Pacemaker Device/ICD Home Coordinator, Model, Serial #: Medtronic, Model, Serial # Device MRI Compatable: Yes Magnet Response: Medtronic Pacemaker VOO 85 Implantation Date: 10/06/13 Mode: MVP Upper Rate: 130 Lower Rate: 60
--- NOTE | 2019-10-07 13:29 | XRay Report ---
XR chest Pre-admission PA/Lat HISTORY: 74 years-old Male pat [preoperative exam. No acute chest complaints COMPARISON: Chest radiographs 01/06/2018 TECHNIQUE: PA and lateral views of the chest FINDINGS: Cardiac mediastinal and hilar silhouettes are within normal limits. Prior median sternotomy with find ings suggestive of CABG. Mild hyperinflation with diaphragmatic flattening. Left subclavian pacer is unchanged. There is no pneumothorax, pleural effusion, focal airspace consolidation or overt pulmonar y edema. Bones appear grossly intact. IMPRESSION: No acute process. The above report was generated using voice recognition software. It may contain grammatical, syntax o r spelling errors. Electronically signed by: Benito Huerta M.D. 10/07/2019 1:28 PM
[2019-10-07 13:43] LABS: Basophils # (auto) 0.03 K/uL (0-0.2); Basophils % (auto) 0.4 %; Eosinophils # (auto) 0.01 K/uL (0-0.5); Eosinophils % (auto) 0.1 %; Hematocrit (blood only) 39.6 % (42-52); Lymphocytes # (auto) 2.05 K/uL (1.2-3.4); Lymphocytes % (auto) 29.3 %; Mean Corpuscular Hemoglobin 30.8 pg (25-34); Mean Corpuscular Hgb Conc 32.8 g/dL (32-36); Mean Corpuscular Volume 93.8 fL (80-100); Monocytes # (auto) 0.63 K/uL (0.11-0.59); Neutrophils # (auto) 4.27 K/uL (1.4-6.5); Neutrophils % (auto) 61.2 %; Platelet Count 282 K/uL (130-400); RDW Coefficient of Variation 13.9 % (11.5-14.5); RDW Standard Deviation 47.8 fL (36.4-46.3); Red Blood Count 4.22 M/uL (4.7-6.1); White Blood Count 6.99 K/uL (4.8-10.8)
[2019-10-07 13:57] LABS: Appearance Urine Clear (Clear); Bacteria Urine Automated 4+ (Negative); Bilirubin Urine Negative (Negative); Blood Urine Negative (Negative); Color Urine Yellow; Epithelial Cell Urine Auto 0-5 /lpf (0-5); Glucose Urine UA Negative (Negative); Ketones Urine Negative (Negative); Leukocyte Esterase Urine 2+ (Negative); Nitrite Urine Positive (Negative); Protein Urine Trace (Negative); RBC Urine Automated 0-4 /hpf (0-4); Specific Gravity Urine 1.016 (1.000-1.030); Urobilinogen Urine Negative (Negative); WBC Urine Automated >30 /hpf (0-5); pH Urine 5.5 (4.5-7.5)
[2019-10-07 14:09] LABS: BUN Creatinine Ratio 17.2 (10-20); Calcium 9.4 mg/dl (8.5-10.1); Creatinine Clr Calc Pharmacy 43.1 ml/min; Est GFR (African American) 46.4; Potassium 5.1 mmol/L (3.5-5.1)
[~2019-10-08 13:09] MED LIST changes: -ASPI325T4 PO; -DAPT500I IV; -FLM4 PO; -HYDR-4079 PO; -LPR25 PO; +LR 15ML/HR IV SCH; -PLV75 PO; -PRAV40TA2 PO; -PRS5 PO
--- NOTE | 2019-10-08 13:56 | History & Physical Bridge Note ---
Date of Service October 08, 2019 History & Physical Bridge Note I have examined the patient, reviewed the History & Physical and in the interval since the performance of the History & Physical I have noted the following changes of clinical significance: no changes noted
[2019-10-08] MEDS ORDERED: ATROPINE SULFATE 0.1 MG/ML 10ML SYR IV PRN (13:58)
[2019-10-08] MEDS ORDERED: ePHEDrine sulfate 50 MG/ML AMP IV PRN (13:58)
[2019-10-08] MEDS ORDERED: fentaNYL citrate 100 MCG/2 ML VIAL IV PRN (13:58)
[2019-10-08] MEDS ORDERED: PROMETHAZINE HCL 6.25 MG in SODIUM CHLORIDE 0.9% 50 ML IV PRN (13:58)
[2019-10-08] MEDS ORDERED: ONDANSETRON INJ 2 MG/ML 2 ML VIAL IV PRN ×2 (13:58→16:58)
[2019-10-08] MEDS ORDERED: MIDAZOLAM HCL 1 MG/ML 2ML VIAL ONE (14:06)
[2019-10-08] MEDS ORDERED: fentaNYL citrate 100 MCG/2 ML VIAL ONE ×3 (14:06→15:15)
[2019-10-08] MEDS: cefTRIAXone SODIUM 1,000 MG in DEXTROSE 5% 50 ML IV SCH ×2 (14:22→17:16)
[2019-10-08] MEDS ORDERED: ROCURONIUM BROMIDE 10 MG/ML 5 ML VIAL ONE (14:36)
[2019-10-08] MEDS ORDERED: PROTAMINE SULFATE 10 MG/ML 5 ML VIAL ONE (14:36)
[2019-10-08] MEDS ORDERED: LIDOCAINE HCL 2% 2 ML VIAL/AMP(20MG/ML) INFIL ONE (14:36)
[2019-10-08] MEDS ORDERED: ACETAMINOPHEN 1000 MG/100 ML IV IV ONE (14:54)
[2019-10-08] MEDS ORDERED: ONDANSETRON INJ 2 MG/ML 2 ML VIAL ONE (15:12)
[2019-10-08] MEDS ORDERED: DEXAMETHASONE SOD INJ 4 MG/ML VIAL ONE (15:12)
[2019-10-08] MEDS ORDERED: KETOROLAC 30 MG/ML VIAL ONE (15:14)
[2019-10-08] MEDS ORDERED: NEOSTIGMINE METHYLSULFATE 5 MG/5 ML SYR ONE (15:18)
[2019-10-08] MEDS ORDERED: GLYCOPYRROLATE 0.2 MG/ML VIAL ONE (15:18)
--- NOTE | 2019-10-08 15:36 | Operative Report ---
PG Post Operative Report Pre & Post Diagnosis Operation Date: 10/08/19 13:00 Pre-Op Diagnosis: Urinary Retention Post-Op Diagnosis: Urinary Retention Operation Date: 10/10/19 10:50 <No data on this case meets the specified criteria> I identified the patient and participated in the time-out.: Yes Procedure Operation Date: 10/08/19 13:00 Actual Procedures p Transurethral Resection Prostate(Not Applicable) - Alvarado Collazo MD Operation Date: 10/10/19 10:50 <No data on this case meets the specified criteria> Surgeon Eddie Collazo MD Child Care Giver none Estimated Blood Loss 5 Findings Consistent with Post-Op Diagnosis Specimens none Description of Procedure The patient was identified in the preopertive holding area, appropriate informed consents were reviewed and completed and the patient was transferred to the operative suite. Upon arrival, appropriate antibiotics and anesthesia were administered and the patient was placed in dorsal lithotomy position and prepped and draped in sterile fashion. To begin the case I performed a meatal dilation to 30 Cambodian utilizing urethral sounds. I then passed a 27 Cambodian resectoscope with visual plant control operator and 30 degree lens. Inspection revealed no stricture disease. Of note, there is some tortuosity to the urethra secondary to the massive right inguinal hernia. I was able to navigate beyond this and into the prostate. The prostate has substantial lateral lobe hypertrophy as well as a high bladder neck and intravesical median lobe. Inspection of the bladder revealed a large capacity bladder without mucosal disease. Following my inspection I began by incising the bladder neck at 5 and 7:00 and r esecting the intravesical median lobe utilizing a button electrode. After flatten the bladder neck there is a substantial improvement in the overall appearance of the prostatic fossa and its patency. I did complete a resection of the left and right lateral lobes as well as the posterior aspect of the prostate. At the conclusion of the case there was excellent hemostasis and a widely patent prostatic fossa. I left the bladder full and withdrew the scope. With gentle suprapubic pressure he generated a very strong urinary stream. I placed a 22 Cambodian three-way Pittman catheter and begin gentle CBI as a precaution. Of note, he will be kept in house and possibly undergo another surgery for his right inguinal hernia prior to discharge homethis will depend on his recovery course. Following extubation he was taken to the PACU in stable condition. There were no complications. I attest to the content of the Intraoperative Record and any orders documented therein. Any exceptions are noted below.
--- NOTE | 2019-10-08 16:24 | Anesthesiology Progress Note ---
Date of Service October 08, 2019 Anesthesia Post Procedure Vital Signs Vital Signs: Temp Pulse Resp BP Pulse Ox 10/08/19 16:15 36.6 C 65 21 136/70 98 10/08/19 16:05 36.3 C L 64 18 131/68 100 10/08/19 15:55 36.3 C L 67 18 135/72 99 10/08/19 15:45 36.3 C L 69 17 142/73 H 99 10/08/19 15:35 36.3 C L 66 12 116/60 97 10/08/19 15:29 36.3 C L 65 12 98/53 L 96 10/08/19 13:33 37.2 C Pain Intensity Bilateral Knee: Pain Intensity: 4 Transfer of Care Handoff Completed per policy Notes Mental Status: alert / awake / arousable Patient Amnestic to Procedure: Yes Nausea / Vomiting: adequately controlled Pain: adequately controlled Airway Patency, RR, SpO2: stable & adequate BP & HR: stable & adequate Hydration State: stable & adequate Anesthetic Complications: no major complications apparent
[2019-10-08] MEDS: LACTATED RINGER'S 1,000 ML IV SCH ×2 (17:17→23:26)
[2019-10-08] MEDS: PRAVASTATIN SOD 40 MG TAB PO SCH (20:36)
[2019-10-08] MEDS: METOPROLOL TARTRATE 25 MG TAB PO SCH (20:36)
[2019-10-08] MEDS: CEFAZOLIN 1000MG 1,000 MG/7.5 ML SYR IV SCH (21:37)
[2019-10-08] MEDS: HYDROCODONE/ACETAMINOPHEN 10/325 TAB PO SCH (23:27)
[2019-10-09] MEDS: MoRPHine SULFATE 2 MG/ML CARP IV PRN ×2 (03:50→07:13)
[2019-10-09] MEDS: CEFAZOLIN 1000MG 1,000 MG/7.5 ML SYR IV SCH (05:05)
--- NOTE | 2019-10-09 07:52 | Urology Progress Note ---
Date of Service October 09, 2019 Assessment & Plan (1) Urinary retention: cont slow CBI for 24hrs NPO p mn for hernia HL IVF now ambulate if he can Subjective No issues overnight cbi ran without problems tolerating a diet baseline pain is still significant planned hernia repair tomorrow Physical Exam Physical Exam: NAD AFVSS comfortable appearing urine clear on very slow CBI massive right inguinal hernia Results & Data Vital Signs (Past 12 Hours) Vital Signs Temp Pulse Pulse Resp BP Pulse Ox 10/09/19 03:47 36.7 C 77 18 131/55 L 93 10/08/19 22:50 36.7 C 86 18 161/84 H 93 10/08/19 20:36 74 162/87 H PG Care Time/CCT Total # of Minutes Spent Total Time Spent with Patient: Total time spent is greater than 50% in coor dination of care (as documented) at patient's floor/unit and/or counseling patient:
[2019-10-09] MEDS ORDERED: Nursing to Pharmacy Communication ONE (08:09)
--- NOTE | 2019-10-09 08:09 | History & Physical Report ---
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 large right inguinal hernia point of the scrotum for at least 4 years or longer initially had a chance to evaluate him approximately 4 years ago where he came in with an acute stroke and required left carotid endarterectomy and hernia was evaluated was nonreducible recommended repair but the patient wanted to wait I saw him in the office approximately 2 weeks ago he could barely walk because as he describes arthritic back pain due to multiple orthopedic insults from athletics he also self catheterizing himself at least 2 or 3 times a day he had been evaluated by urology for TUR and plans were deferred to proceed with a TUR and then proceed after with an open right inguinal hernia repair with mesh possible bowel resection Risk and complication were explained to the patient including bleeding infection recurrence and he would like to proceed accordingly we will plan for tomorrow consent for surgery has been signed Present on Admission?: Yes History of Present Illness Chief Complaint: Large right scrotal hernia Primary Care Provider: Franco Adams MD Allergies Allergy/AdvReac Type Severity Reaction Status Date / Time Iodinated Contrast Media Allergy Intermediate Hives per Verified 10/07/19 11:28 patient DEER DANDER Allergy Unknown Unknown Uncoded 10/07/19 11:28 Home Medications Home Medications Medication Instructions Recorded Confirmed Type clopidogrel 75 mg tablet 75 mg PO QAM #30 tab 07/18/19 10/07/19 History finasteride 5 mg tablet 5 mg PO QAM #30 tab 07/18/19 10/07/19 History metoprolol tartrate 25 mg tablet 25 mg PO BID tab 07/18/19 10/07/19 History pravastatin 40 mg tablet 40 mg PO QAM tab 07/18/19 10/07/19 History tamsulosin 0.4 mg capsule 0.4 mg PO DAILY 07/18/19 10/07/19 History aspirin [Aspirin Low Dose] 81 mg PO QAM 10/07/19 10/07/19 History hydrocodone-acetaminophen 1 tab PO BID 10/07/19 10/07/19 History Past Med/Surg History Medical History Aortic stenosis (Inactive) S/P AVR with bioprosthetic valve 2011 [facility] [place] Benign prostatic hyperplasia with urinary obstruction and other lower urinary tract symptoms (Inactive) CAD (coronary artery disease) (Chronic) Presented with traumatic syncope November 2011 and 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 He went on to have an aortic root replacement with a valve and a COLLINS graft to the LAD on 11/24/2011 at [facility]. Cerebrovascular disease CVA/TIA 2015--short term memory difficulties and other vague neurological symptoms prompted workup. Found to have severe carotid dz, now s/p L CEA 09/2016. Chronic kidney disease Dyslipidemia Hydronephrosis Admitted to [facility] 08/08-08/10 for this + urosepsis. 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 Pacer implanted 10/06/13. Self-catheterizes urinary bladder Urinary retention Surgical History H/O carotid endarterectomy left History of heart valve replacement with porcine valve Hx of CABG (Resolved) [facility] 2011. Failed SVG grafts (veins weren't usable). COLLINS-LAD. 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 Feels Safe at Home: Yes Safety Concerns: Feels Safe At This Time Smoking Status: Never smoker Do You Dip or Chew Tobacco: No ; Second Hand Exposure: No ; Hx Alcohol Use: No Hx Substance Use: No Physical Exam Constitutional: WD/WN, vitals as above well developed and well nourished Pittman catheter in place patient had undergone a TUR yesterday urine is clear Eyes: PERRL, conjunctivae normal, anicteric sclerae ENMT: external ear and nose normal, oropharynx normal Neck: Left carotid incision is healed well no bruits bilaterally recent carotid Doppler showed bilateral carotid systems patent with no hemodynamic significant lesion Respiratory: normal respiratory effort, lungs clear to auscultation Cardiovascular: RRR, no murmur, no edema Gastrointestinal (Abdomen): Large right scrotal hernia nonreducible rest the abdomen is negative Results & Data Vital Signs (Past 12 Hours) Vital Signs Temp Pulse Pulse Resp BP Pulse Ox 10/09/19 03:47 36.7 C 77 18 131/55 L 93 10/08/19 22:50 36.7 C 86 18 161/84 H 93 10/08/19 20:36 74 162/87 H Code Status & VTE Plan VTE Prophylaxis Plan VTE Prophylaxis will be ordered: Yes
[2019-10-09 08:16] LABS: Hematocrit (blood only) 38.3 % (42-52); Hemoglobin 12.6 g/dL (14.0-18.0); Immature Granulocytes # (auto) 0.02 K/uL (0.00-0.02); Immature Granulocytes % (auto) 0.2 %; Lymphocytes # (auto) 0.76 K/uL (1.2-3.4); Lymphocytes % (auto) 6.9 %; Mean Corpuscular Hemoglobin 30.3 pg (25-34); Mean Corpuscular Hgb Conc 32.9 g/dL (32-36); Mean Corpuscular Volume 92.1 fL (80-100); Mean Platelet Volume 9.8 fL (7.4-10.4); Monocytes # (auto) 0.44 K/uL (0.11-0.59); Neutrophils # (auto) 9.87 K/uL (1.4-6.5); Neutrophils % (auto) 88.9 %; Platelet Count 265 K/uL (130-400); RDW Coefficient of Variation 13.8 % (11.5-14.5); RDW Standard Deviation 46.5 fL (36.4-46.3); Red Blood Count 4.16 M/uL (4.7-6.1); White Blood Count 11.09 K/uL (4.8-10.8)
[2019-10-09] MEDS: FINASTERIDE 5 MG TAB PO SCH (08:37)
[2019-10-09] MEDS: TAMSULOSIN HCL 0.4 MG CAP PO SCH (08:37)
[2019-10-09] MEDS: METOPROLOL TARTRATE 25 MG TAB PO SCH ×2 (08:37→20:21)
[2019-10-09] MEDS: ASPIRIN 81 MG ECTAB PO SCH (08:37)
[2019-10-09] MEDS: HYDROCODONE/ACETAMINOPHEN 10/325 TAB PO SCH ×2 (08:38→20:21)
[2019-10-09 08:42] LABS: BUN Creatinine Ratio 16.9 (10-20); Calcium 9.1 mg/dl (8.5-10.1); Creatinine Clr Calc Pharmacy 17.2 ml/min; Est GFR (African American) 47.1; Est GFR (Non-African American) 40.6; Potassium 4.3 mmol/L (3.5-5.1)
--- NOTE | 2019-10-09 09:39 | Urology Progress Note ---
Date of Service October 09, 2019 Assessment & Plan (1) Urinary retention: 74yo M POD #1 s/p TURP with Dr. Collazo Cont slow CBI for 24hrs NPO p MN for hernia Encourage ambulation if possible given chronic pain issues. Subjective 74yo M POD #1 s/p TURP with Dr. Collazo Pt continues to progress as expected. Appears comfortable sitting up in bed, eating breakfast - tolerating well. Very conversive and pleasant. CBI running clear at slow rate. Review of Systems Review of Systems: All systems reviewed & are unremarkable except as noted in HPI & below Physical Exam Physical Exam: A&Ox3 RRR abd soft, nontender 3-way jin intact, CBI running at slow rate; draining clear yellow. Results & Data Vital Signs (Past 12 Hours) Vital Signs Temp Pulse Pulse Resp BP BP Pulse Ox 10/09/19 08:05 37.4 C 69 11 L 168/80 H 94 10/09/19 03:47 36.7 C 77 18 131/55 L 93 10/08/19 22:50 36.7 C 86 18 161/84 H 93 PG Care Time/CCT Total # of Minutes Spent Total Time Spent with Patient: Total time spent is greater than 50% in coordination of care (as documented) at patient's floor/unit and/or counseling patient:
[2019-10-09] MEDS: MoRPHine SULFATE 4 MG/ML 1 ML CARP\\VIAL IV PRN ×4 (10:19→22:03)
[2019-10-09] MEDS: ACETAMINOPHEN 325 MG TAB PO PRN (14:25)
--- NOTE | 2019-10-09 14:52 | Anesthesiology Consultation ---
Date of Service October 09, 2019 Assessment & Plan Chart Review Chart Review: Acceptable Risk for Surgery and Patient NOT seen in Pre Admission Testing Consults Requested none ASA ASA4 Proposed Anesthesia Anesthesia Type: General History Surgery Operation Date: 10/08/19 13:00 Proposed Procedures p Transurethral Resection Prostate - Alvarado Collazo MD Operation Date: 10/10/19 10:50 Proposed Procedures p Large Right Scrotal Hernia Repair - Cristi Trevino MD Height/Weight Height: 5 ft 9 in Weight: 31.1 kg Allergies Allergy/AdvReac Type Severity Reaction Status Date / Time Iodinated Contrast Media Allergy Intermediate Hives per Verified 10/07/19 11:28 patient DEER DANDER Allergy Unknown Unknown Uncoded 10/07/19 11:28 Medications Home Medications Medication Instructions Recorded Confirmed Last Taken clopidogrel 75 mg tablet 75 mg PO QAM #30 tab 07/18/19 10/07/19 08/08/19 finasteride 5 mg tablet 5 mg PO QAM #30 tab 07/18/19 10/07/19 08/08/19 metoprolol tartrate 25 mg tablet 25 mg PO BID tab 07/18/19 10/07/19 08/08/19 08:00 pravastatin 40 mg tablet 40 mg PO QAM tab 07/18/19 10/07/19 08/08/19 tamsulosin 0.4 mg capsule 0.4 mg PO DAILY 07/18/19 10/07/19 08/08/19 aspirin [Aspirin Low Dose] 81 mg PO QAM 10/07/19 10/07/19 Unknown hydrocodone-acetaminophen 1 tab PO BID 10/07/19 10/07/19 Unknown Active Medications Generic Name Dose Route Start Last Admin Trade Name Freq PRN Reason Stop Dose Admin Acetaminophen 650 mg 10/08/19 16:58 10/09/19 14:25 Tylenol PO 11/07/19 16:57 650 mg Q6H PRN Administration mild pain (scale 1-3) Hydrocodone Bitart/Acetaminophen 1 tab 10/08/19 21:00 10/09/19 08:38 [place] 10/325 PO 10/22/19 20:59 1 tab BID RAJENDRA Administration Aspirin 81 mg 10/09/19 09:00 10/09/19 08:37 Ecotrin Ectab PO 11/08/19 08:59 81 mg QAM RAJENDRA Administration Finasteride 5 mg 10/09/19 09:00 10/09/19 08:37 Proscar PO 11/08/19 08:59 5 mg QAM RAJENDRA Administration Lactated Ringer's 1,000 mls @ 100 mls/hr 10/08/19 16:58 10/09/19 08:08 Lr IV 11/07/19 16:57 Infused .Q10H RAJENDRA Infusion Metoprolol Tartrate 25 mg 10/08/19 21:00 10/09/19 08:37 Lopressor PO 11/07/19 20:59 25 mg BID RAJENDRA Administration Morphine Sulfate 2 mg 10/08/19 16:58 10/09/19 07:13 Morphine Sulfate IV 10/22/19 16:57 2 mg Q3H PRN Administration mild pain (scale 1-3) Morphine Sulfate 3 mg 10/08/19 17:14 10/09/19 13:51 Morphine Sulfate IV 10/22/19 17:13 3 mg Q3H PRN Administration SEVERE PAIN Pravastatin Sodium 40 mg 10/08/19 21:00 10/08/19 20:36 Pravachol PO 11/07/19 20:59 40 mg HS RAJENDRA Administration Tamsulosin HCl 0.4 mg 10/09/19 09:00 10/09/19 08:37 Flomax PO 11/08/19 08:59 0.4 mg DAILY RAJENDRA Administration NPO Date Last Intake of Fluids: 10/07/19 Time Last Intake of Fluids: 23:00 Date Last Intake of Solids: 10/08/19 Time Last Intake of Solids: 23:00 Past Medical History Medical History Aortic stenosis (Inactive) S/[place] with bioprosthetic valve [place] [facility] [place]ign prostatic hyperplasia with urinary obstruction and other lower urinary tract symptoms (Inactive) CAD (coronary artery disease) (Chronic) Presented with traumatic syncope November 2011 and 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 He went on to have an aortic root replacement with a valve and a COLLINS graft to the LAD on 11/24/2011 at [facility]. Cerebrovascular disease CVA/TIA 2015--short term memory difficulties and other vague neurological symptoms prompted workup. Found to have severe carotid dz, now s/p L CEA 2015. Chronic kidney disease Dyslipidemia Hydronephrosis Admitted to [facility] 08/08-08/10 for this + urosepsis. 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 Pacer implanted 10/06/13. Self-catheterizes urinary bladder Urinary retention Exercise / Class Metabolic Activity III < 4 Walking/Shop/Light housework Past Surgical History Surgical History H/O carotid endarterectomy left History of heart valve replacement with porcine valve Hx of CABG (Resolved[place] [facility] [place] Failed SVG grafts (veins weren't usable). COLLINS-LAD. Hx of wisdom tooth extraction Past Anesthesia History No Hx of Anesthesia Complications and No Family Hx of Anesthesia Complications *Glidescope #3 used for 2015 CEA ("elective use" per record) History of PONV No Hx of PONV and No Hx of Motion Sickness Social History Smoking Status: Never smoker Do You Dip or Chew Tobacco: No Hx Alcohol Use: No Alcohol type: beer and wine alcohol intake frequency: a few times a month Hx Substance Use: No Physical Exam Vital Signs Last Vital Signs Temp 36.7 C 10/09/19 11:53 Pulse 73 10/09/19 11:53 Resp 17 10/09/19 11:53 BP 143/76 H 10/09/19 11:33 Pulse Ox 93 10/09/19 11:53 Testing Laboratory Results 10/09/19 07:53 10/09/19 07:53 Urine Color Yellow 10/07/19 Unknown Urine Appearance Clear (Clear) 10/07/19 Unknown Urine pH 5.5 (4.5-7.5) 10/07/19 Unknown Ur Specific [place] 1.016 (1.000-1.030) 10/07/19 Unknown Urine Protein Trace (Negative) H 10/07/19 Unknown Urine Glucose (UA) Negative (Negative) 10/07/19 Unknown Urine Ketones Negative (Negative) 10/07/19 Unknown Urine Nitrite Positive (Negative) A 10/07/19 Unknown Ur Leukocyte Esterase 2+ (Negative) H 10/07/19 Unknown Urine WBC (Auto) >30 /hpf (0-5) H 10/07/19 Unknown Urine RBC (Auto) 0-4 /hpf (0-4) 10/07/19 Unknown U Hyaline Cast (Auto) 1-5 /lpf (0-5) 10/07/19 Unknown U Epithel Cells (Auto) 0-5 /lpf (0-5) 10/07/19 Unknown Urine Bacteria (Auto) 4+ (Negative) H 10/07/19 Unknown 10/07/19 Unknown Urine Culture - Final Urine,Clean Catch Citrobacter koseri
[2019-10-09] MEDS: PRAVASTATIN SOD 40 MG TAB PO SCH (20:21)
[2019-10-10] MEDS: LACTATED RINGER'S 1,000 ML IV SCH ×2 (00:03→15:49)
[2019-10-10] MEDS: MoRPHine SULFATE 4 MG/ML 1 ML CARP\\VIAL IV PRN ×5 (01:04→23:21)
[2019-10-10] MEDS: ACETAMINOPHEN 325 MG TAB PO PRN (03:24)
[2019-10-10 07:57] LABS: Basophils # (auto) 0.03 K/uL (0-0.2); Basophils % (auto) 0.3 %; Eosinophils # (auto) 0.14 K/uL (0-0.5); Eosinophils % (auto) 1.3 %; Hematocrit (blood only) 38.1 % (42-52); Hemoglobin 12.3 g/dL (14.0-18.0); Immature Granulocytes # (auto) 0.02 K/uL (0.00-0.02); Immature Granulocytes % (auto) 0.2 %; Lymphocytes # (auto) 2.45 K/uL (1.2-3.4); Lymphocytes % (auto) 23.5 %; Mean Corpuscular Hemoglobin 30.4 pg (25-34); Mean Corpuscular Hgb Conc 32.3 g/dL (32-36); Mean Corpuscular Volume 94.3 fL (80-100); Mean Platelet Volume 10.1 fL (7.4-10.4); Monocytes # (auto) 1.24 K/uL (0.11-0.59); Monocytes % (auto) 11.9 %; Neutrophils # (auto) 6.55 K/uL (1.4-6.5); Neutrophils % (auto) 62.8 %; Platelet Count 237 K/uL (130-400); RDW Coefficient of Variation 14.2 % (11.5-14.5); RDW Standard Deviation 48.7 fL (36.4-46.3); Red Blood Count 4.04 M/uL (4.7-6.1); White Blood Count 10.43 K/uL (4.8-10.8)
--- NOTE | 2019-10-10 08:13 | Urology Progress Note ---
Date of Service October 10, 2019 Assessment & Plan (1) Benign prostatic hyperplasia with urinary obstruction and other lower urinary tract symptoms: POD #2 s/p TURP - doing very well from a standpoint CBI off hernia repair today leave catheter - likely until early next week Subjective No issues overnight planned hernia repair today Physical Exam Physical Exam: AFVSS except for hypertension urine clear CBI off Results & Data Vital Signs (Past 12 Hours) Vital Signs Temp Pulse Resp BP BP Pulse Ox 10/10/19 07:24 36.5 C 78 22 184/100 H 189/93 H 95 10/09/19 23:02 36.7 C 72 18 135/69 93 10/09/19 20:21 73 146/86 H PG Care Time/CCT Total # of Minutes Spent Total Time Spent with Patient: Total time spent is greater than 50% in coordination of care (as documented) at patient's floor/unit and/or counseling patient:
[2019-10-10 08:32] LABS: Calcium 9.2 mg/dl (8.5-10.1); Creatinine Clr Calc Pharmacy 17.3 ml/min; Est GFR (African American) 47.4; Est GFR (Non-African American) 40.9; Potassium 4.5 mmol/L (3.5-5.1)
[2019-10-10] MEDS: TAMSULOSIN HCL 0.4 MG CAP PO SCH (09:00)
[2019-10-10] MEDS: FINASTERIDE 5 MG TAB PO SCH (09:00)
[2019-10-10] MEDS: METOPROLOL TARTRATE 25 MG TAB PO SCH ×2 (09:00→20:27)
[2019-10-10] MEDS: HYDROCODONE/ACETAMINOPHEN 10/325 TAB PO SCH ×2 (09:00→20:27)
[2019-10-10] MEDS ORDERED: BACITRACIN INJ 50,000 UNIT VIAL ONE (10:46)
[2019-10-10] MEDS ORDERED: BUPIVACAINE 0.5 % 5 MG/1 ML MPF 30ML VIAL ONE (10:46)
--- NOTE | 2019-10-10 10:46 | History & Physical Bridge Note ---
Date of Service October 10, 2019 History & Physical Bridge Note I have examined the patient, reviewed the History & Physical and in the interval since the performance of the History & Physical I have noted the following changes of clinical significance: no changes noted pt marked all questions answered at bedside
[2019-10-10] MEDS ORDERED: ROCURONIUM BROMIDE 10 MG/ML 5 ML VIAL ONE (10:57)
[2019-10-10] MEDS ORDERED: MIDAZOLAM HCL 1 MG/ML 2ML VIAL ONE (10:57)
[2019-10-10] MEDS ORDERED: CEFAZOLIN 250 MG/ML 1 GM VIAL ONE (10:57)
[2019-10-10] MEDS ORDERED: fentaNYL citrate 100 MCG/2 ML VIAL ONE (10:57)
[2019-10-10] MEDS ORDERED: LIDOCAINE HCL 2% 2 ML VIAL/AMP(20MG/ML) INFIL ONE (10:57)
[2019-10-10] MEDS ORDERED: GLYCOPYRROLATE 0.2 MG/ML VIAL ONE (10:57)
[2019-10-10] MEDS ORDERED: ONDANSETRON INJ 2 MG/ML 2 ML VIAL ONE (10:57)
[2019-10-10] MEDS ORDERED: NEOSTIGMINE METHYLSULFATE 5 MG/5 ML SYR ONE (10:57)
[2019-10-10] MEDS ORDERED: SUCCINYLCHOLINE CHLORIDE 20 MG/ML 10 ML VIAL ONE (10:57)
[2019-10-10] MEDS ORDERED: PROPOFOL IV EMULSION 10 MG/ML 20 ML VIAL IV ONE (10:57)
[2019-10-10] MEDS ORDERED: HYDROmorphone INJ 2 MG/ML SYR/VIAL ONE (11:48)
[2019-10-10] MEDS ORDERED: KETAMINE HCL INJ 50 MG/ML 10 ML VIAL ONE (11:49)
[2019-10-10] MEDS ORDERED: BUPIVACAINE 0.5 % 5 MG/1 ML MPF 30ML VIAL INJ SCH (12:15)
[2019-10-10] MEDS ORDERED: ONDANSETRON INJ 2 MG/ML 2 ML VIAL IV PRN (12:47)
[2019-10-10] MEDS ORDERED: FLUMAZENIL 0.1 MG/1 ML 10 ML VIAL IV PRN (12:47)
[2019-10-10] MEDS ORDERED: HYDROmorphone INJ 1 MG/ML SYRINGE IV PRN (12:47)
[2019-10-10] MEDS ORDERED: ePHEDrine sulfate 50 MG/ML AMP IV PRN (12:47)
[2019-10-10] MEDS ORDERED: NALOXONE HCL 0.4 MG/1 ML VIAL/CARP IV PRN (12:47)
[2019-10-10] MEDS ORDERED: ATROPINE SULFATE 0.1 MG/ML 10ML SYR IV PRN (12:47)
[2019-10-10] MEDS ORDERED: PROMETHAZINE HCL 12.5 MG in SODIUM CHLORIDE 0.9% 50 ML IV PRN (12:47)
--- NOTE | 2019-10-10 12:57 | Post Operative Brief Note ---
PG Immediate Post Op with CF Date of Surgery October 10, 2019 Pre & Post Diagnosis Operation Date: 10/08/19 13:00 Pre-Op Diagnosis: Urinary Retention Post-Op Diagnosis: Urinary Retention Operation Date: 10/10/19 10:50 Pre-Op Diagnosis: Large Right Inguinal Hernia Point of the Scrotum Post-Op Diagnosis: Large Direct Right Inguinal Hernia Point of the Scrotum I identified the patient and participated in the time-out.: Yes Procedure Operation Date: 10/08/19 13:00 Actual Procedures p Transurethral Resection Prostate(Not Applicable) - Alvarado Collazo MD Operation Date: 10/10/19 10:50 Actual Procedures p Large Right Incarcerated Scrotal Hernia Repair with Mesh(Right) - Cristi Trevino MD Surgeon Cristi Trevino MD Registered Dietitian none Estimated Blood Loss 5 Findings Consistent with Post-Op Diagnosis Specimens Specimen Description: none per surgeon Drains Jin Catheter (pt came to OR with jin in place, output monitored by anesthesia)
--- NOTE | 2019-10-10 13:19 | Operative Report ---
PG Post Operative Report Pre & Post Diagnosis Operation Date: 10/08/19 13:00 Pre-Op Diagnosis: Urinary Retention Post-Op Diagnosis: Urinary Retention Operation Date: 10/10/19 10:50 Pre-Op Diagnosis: Large Right Inguinal Hernia Point of the Scrotum Post-Op Diagnosis: Large Direct Right Inguinal Hernia Point of the Scrotum I identified the patient and participated in the time-out.: Yes Procedure Operation Date: 10/08/19 13:00 Actual Procedures p Transurethral Resection Prostate(Not Applicable) - Alvarado Collazo MD Operation Date: 10/10/19 10:50 Actual Procedures p Large Right Incarcerated Scrotal Hernia Repair with Mesh(Right) - Cristi Trevino MD Patient was brought into the operating room theater supine position general endotracheal anesthesia arterial line placed in the left radial area by anesthesia the abdomen and scrotum down to the upper thighs was prepped with Betadine scrub and solution properly draped patient identified systemic antibiotics given a timeout was had this point local anesthetic 1% Xylocaine with epi was used to infiltrate 2 fingerbreadths medial to the anterior superior iliac crest subfascially to the external Bleich and incision parallel the lingual ligament was made approximately 4-1/2 inches long deepened to subcutaneous tissue some prominent veins were ligated with 2-0 silk dissected down to the external Bleich more local was placed underneath the fascia which was opened along the external ring and the external ring there is entrapped tissue with a good C going down to a large hernia that extends into the scrotum only penitentiary down the thigh once we opened the external ring we bluntly dissected out the contents of the hernial sac and from the scrotal area just but bluntly were able to identify the cord and the vas which were retracted inferiorly over a [place] drain and it was hard to reduce this contents which was the size of a football we opened up towards the internal ring more where we were able to identify the conjoined tendon superiorly held up with [place] clamps and [place] clamps and pretty much identified that the floor all the way to direct and indirect area was completely dislodged by this large hernia I was able then to place it patient in Trendelenburg position was able to reduce a small intra-abdominally without opening the sac out. We at this point I was able then to close the fascia transversalis with interrupted 3-0 silk down to underneath the conjoined tendon all the way that we had the floor pretty much closed with this A suture which was independent the internal ring similarly were able to reduce anything retroperitoneally intraperitoneally that with the internal ring was fairly tight I made a relaxing incision on the rectus fascia sufficiently from the almost the symphysis pubis all the way up to the level of the external ring internal ring and at this point I brought up a sheet of Marlex mesh and was able to sutured onto the edge of the fascia that we incised with a running 2-0 Prolene suture inferiorly we sutured onto the symphysis pubis the shelving portion of the inguinal ligament which was prominent all the way to reconstruct the internal ring the could only accommodate the tip of a hemostat we placed another interrupted suture of the mesh onto the just medial to the internal ring to secure that more closely and make sure the mesh was adherent to the fascial plane the area was checked and states appear satisfactory obviously there was no nerve identified to the cord and completely distorted we then closed the mesh underneath the external Bleich fascia with the cord with 3-0 interrupted silk suture reconstruct the external ring subcutaneous tissue was brought together 3- 0 Dexon leni for skin edges dressing was applied procedure tolerated well estimated blood loss 30 cc addendum Idris oliveira was present throughout the procedure and helped with exposure traction and wound closure Surgeon Cristi Trevino MD Plastering Contractor none Estimated Blood Loss 30 Findings Consistent with Post-Op Diagnosis Specimens none Description of Procedure merda I attest to the content of the Intraoperative Record and any orders documented therein. Any exceptions are noted below.
[2019-10-10] MEDS: LABETALOL HCL IV 5 MG/ML 20ML IV PRN ×3 (13:52→14:06)
[2019-10-10] MEDS ORDERED: HydrALAZINE HCL 20 MG/ML VIAL ONE (14:17)
[2019-10-10] MEDS ORDERED: HydrALAZINE HCL 20 MG/ML VIAL IV STA (14:23)
--- NOTE | 2019-10-10 14:42 | Anesthesiology Progress Note ---
Date of Service October 10, 2019 Anesthesia Post Procedure Vital Signs Vital Signs: Temp Pulse Pulse Resp BP BP Pulse Ox 10/10/19 14:30 66 13 137/80 94 10/10/19 14:20 66 13 171/99 H 97 10/10/19 14:10 69 15 169/94 H 94 10/10/19 14:00 71 22 185/113 H 94 10/10/19 13:50 73 16 191/106 H 99 10/10/19 13:40 67 21 162/95 H 98 10/10/19 13:30 63 15 157/88 H 100 10/10/19 13:20 36.2 C L 68 15 165/98 H 99 10/10/19 09:41 36.8 C 69 16 184/88 H 95 10/10/19 09:10 182/98 H 184/100 H 10/10/19 07:24 36.5 C 78 22 184/100 H 189/93 H 95 10/09/19 23:02 36.7 C 72 18 135/69 93 10/09/19 20:21 73 146/86 H 10/09/19 15:40 36.9 C 69 16 111/63 95 Pain Intensity Bilateral Knee: Pain Intensity: 7 Scrotal: Pain Intensity: 10 Transfer of Care Handoff Completed per policy Notes Mental Status: alert / awake / arousable Patient Amnestic to Procedure: Yes Nausea / Vomiting: adequately controlled Pain: adequately controlled Airway Patency, RR, SpO2: stable & adequate BP & HR: stable & adequate Hydration State: stable & adequate Anesthetic Complications: no major complications apparent
[2019-10-10] MEDS: ASPIRIN 81 MG ECTAB PO SCH (16:28)
[2019-10-10] MEDS: PRAVASTATIN SOD 40 MG TAB PO SCH (20:27)
[2019-10-11] MEDS: LACTATED RINGER'S 1,000 ML IV SCH ×2 (01:37→07:11)
[2019-10-11] MEDS: MoRPHine SULFATE 4 MG/ML 1 ML CARP\\VIAL IV PRN ×10 (04:21→23:29)
[2019-10-11] MEDS ORDERED: Nursing to Pharmacy Communication ONE (07:10)
--- NOTE | 2019-10-11 07:38 | Surgery Progress Note ---
Date of Service October 11, 2019 Assessment & Plan (1) Inguinal hernia: POD1 open right inguinal hernia repair POD 3 TURP We will wait for Dr. Soriano to see patient regarding instituting some pain management routine The patient had been on OxyContin 2 or 3 times a day longstanding for back issues hopefully we can formulate a more definitive plan regarding his pain management From the hernia point of view the patient can be discharged today we will await urology decision regarding their aspect regarding discharge we had discussed with urology to leave the Pittman in for approximately 1 week and removed in the office From the hernia point of view the dressing come off later today he may shower reapply dressing on a as needed basis should not lift anything heavier than 10 pounds and no driving till we see the patient next week and he should resume all his preoperative medicine and from my point of view can resume Plavix 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 large right inguinal hernia point of the scrotum for at least 4 years or longer initially had a chance to evaluate him approximately 4 years ago where he came in with an acute stroke and required left carotid endarterectomy and hernia was evaluated was nonreducible recommended repair but the patient wanted to wait I saw him in the office approximately 2 weeks ago he could barely walk because as he describes arthritic back pain due to multiple orthopedic insults from athletics he also self catheterizing himself at least 2 or 3 times a day he had been evaluated by urology for TUR and plans were deferred to proceed with a TUR and then proceed after with an open right inguinal hernia repair with mesh possible bowel resection Risk and complication were explained to the patient including bleeding infection recurrence and he would like to proceed accordingly we will plan for tomorrow consent for surgery has been signed Subjective Patient is first postoperative day status post open right inguinal scrotal hernia repair with mesh The patient is doing very well states only has some morphine this morning did not take any overnight his main pain is arthritic in nature from the back which is longstanding he has had minimal discomfort in the operative field Physical Exam Physical Exam: Robert is resting comfortably noticed some elevation of blood pressure which will be will restart antihypertensive this morning the [place] catheter is still in place the right groin incision the dressing is dry ice bag is still on the scrotal area is free of any hematoma just excess skin which will time would resolve no abdominal findings Results & Data Vital Signs (Past 12 Hours) Vital Signs Temp Pulse Pulse Resp BP BP Pulse Ox 10/11/19 06:30 83 168/93 H 10/11/19 05:45 86 174/87 H 10/11/19 05:16 191/85 H 10/11/19 04:50 177/75 H 10/11/19 04:13 37.1 C 88 20 182/83 H 92 10/10/19 23:42 36.7 C 76 18 148/81 H 92 10/10/19 20:25 36.9 C 80 18 121/68 92 PG Care Time/CCT Total # of Minutes Spent Total Time Spent with Patient: Total time spent is greater than 50% in coordination of care (as documented) at patient's floor/unit and/or counseling patient:
--- NOTE | 2019-10-11 07:54 | Urology Progress Note ---
Date of Service October 11, 2019 Assessment & Plan (1) Benign prostatic hyperplasia with urinary obstruction and other lower urinary tract symptoms: s/p TURP and R ing hernia repair - seems to be making excellent progress - catheter until Monday Subjective pod # 1 s/p right ing hernia repair subjectively - drastically improved pain is surgical - different in nature from prior to surg Physical Exam Physical Exam: scrotal edema - but overall appearance far improved urine clear Results & Data Vital Signs (Past 12 Hours) Vital Signs Temp Pulse Pulse Pulse Resp BP BP 10/11/19 07:49 37 C 77 16 150/98 H 10/11/19 06:30 83 168/93 H 10/11/19 05:45 86 174/87 H 10/11/19 05:16 191/85 H 10/11/19 04:50 177/75 H 10/11/19 04:13 37.1 C 88 20 182/83 H 10/10/19 23:42 36.7 C 76 18 148/81 H 10/10/19 20:25 36.9 C 80 18 121/68 Pulse Ox 10/11/19 07:49 90 10/11/19 06:30 10/11/19 05:45 10/11/19 05:16 10/11/19 04:50 10/11/19 04:13 92 10/10/19 23:42 92 10/10/19 20:25 92 PG Care Time/CCT Total # of Minutes Spent Total Time Spent with Patient: Total time spent is greater than 50% in coordination of care (as documented) at patient's floor/unit and/or counseling patient:
--- NOTE | 2019-10-11 08:08 | Anesthesiology Progress Note ---
Date of Service October 11, 2019 Anesthesia Post Procedure Vital Signs Vital Signs: Temp Pulse Pulse Pulse Resp BP BP 10/11/19 07:49 37 C 77 16 150/98 H 10/11/19 06:30 83 168/93 H 10/11/19 05:45 86 174/87 H 10/11/19 05:16 191/85 H 10/11/19 04:50 177/75 H 10/11/19 04:13 37.1 C 88 20 182/83 H 10/10/19 23:42 36.7 C 76 18 148/81 H 10/10/19 20:25 36.9 C 80 18 121/68 10/10/19 18:32 36.9 C 79 16 156/81 H 10/10/19 17:26 36.9 C 82 16 120/71 10/10/19 16:25 36.5 C 75 18 143/73 H 10/10/19 15:55 36.8 C 72 16 122/65 10/10/19 15:25 36.8 C 73 16 118/70 10/10/19 15:00 36.6 C 67 18 118/67 10/10/19 14:50 69 18 136/75 10/10/19 14:40 65 20 132/72 10/10/19 14:30 66 13 137/80 10/10/19 14:20 66 13 171/99 H 10/10/19 14:10 69 15 169/94 H 10/10/19 14:00 71 22 185/113 H 10/10/19 13:50 73 16 191/106 H 10/10/19 13:40 67 21 162/95 H 10/10/19 13:30 63 15 157/88 H 10/10/19 13:20 36.2 C L 68 15 165/98 H 10/10/19 09:41 36.8 C 69 16 184/88 H 10/10/19 09:10 182/98 H 184/100 H Pulse Ox 10/11/19 07:49 90 10/11/19 06:30 10/11/19 05:45 10/11/19 05:16 10/11/19 04:50 10/11/19 04:13 92 10/10/19 23:42 92 10/10/19 20:25 92 10/10/19 18:32 91 10/10/19 17:26 92 10/10/19 16:25 92 10/10/19 15:55 93 10/10/19 15:25 93 10/10/19 15:00 92 10/10/19 14:50 94 10/10/19 14:40 94 10/10/19 14:30 94 10/10/19 14:20 97 10/10/19 14:10 94 10/10/19 14:00 94 10/10/19 13:50 99 10/10/19 13:40 98 10/10/19 13:30 100 10/10/19 13:20 99 10/10/19 09:41 95 10/10/19 09:10 Pain Intensity Bilateral Knee: Pain Intensity: 7 Scrotal: Pain Intensity: 5 Notes Mental Status: alert / awake / arousable and participated in evaluation Patient Amnestic to Procedure: Yes Nausea / Vomiting: adequately controlled Pain: adequately controlled Airway Patency, RR, SpO2: stable & adequate BP & HR: stable & adequate Hydration State: stable & adequate Anesthetic Complications: no major complications apparent
--- NOTE | 2019-10-11 08:42 | Pain Management Consultation ---
Date of Consultation October 11, 2019 Assessment & Plan (1) Hx of inguinal hernia surgery: Present on Admission?: No (2) S/P TURP (status post transurethral resection of prostate): Present on Admission?: No (3) Osteoarthritis: 1. Patient chronically opioid dependent in the outpatient setting with hydrocodone/acetaminophen for treatment of osteoarthritis prescribed by Dr. Sheppard most recent prescription for #60 tablets of hydrocodone/acetaminophen 10/325 mg 09/11/2019 per review of PDMP. Review of PDMP indicates consistent prescriber and pharmacy utilization. Would recommend continuing with hydr ocodone/acetaminophen 10/325 mg twice daily 2. Patient reporting significant reduction in pain this morning compared to yesterday in the postsurgical setting of a very large inguinal/scrotal hernia repair. Patient may continue with IV morphine 4 mg as needed for breakthrough pain. The patient was encouraged to utilize Percocet as written to assess effectiveness for discharge planning in place of the IV morphine. 3. We discussed the importance of continued utilization of ice over the inc isional site 4. Will sign off on patient at this time. Thank you for allowing us to participate in the care of Mr. Chaudhari. Please contact pain service for reevaluation as needed. 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 Collazo on 10/08/2019 and also underwent repair of a large right inguinal hernia repair by Dr. Trevino yesterday 10/10/2019. Patient has longstanding history of chronic osteoarthritis related pain and is opioid dependent with hydrocodone/acetaminophen 10/325 mg twice daily in the outpatient setting. The patient is been utilizing chronic opiates for many years as prescribed by Dr. Sheppard. Patient was experiencing significant pain in the right inguinal and scrotal region in the postop setting yesterday. Patient is reporting that his pain is minimal at this time and well controlled with IV morphine. He is reporting his pain is a 2/10 at this time in the inguinal and scrotal region. He reports awakening with his chronic osteoarthritis related pain in multiple joint levels which is at its baseline. Patient describes the pain as aching and occasionally sharp in the right inguinal region. He reports ice has been effective at diminishing incisional site discomfort. He is reporting no discomfort relating to his TURP, denying pain in the perineal region. Patient remains catheterized reportedly until Monday per urology. Patient has no further constitutional complaints. Plan of care discussed with Dr. Brina Talbot. Requesting Physician: Dr. Uriel MD Attending Physician: Eddie Collazo MD Pain Assessment Full Body Front + Back: 1. Right groin/scrotum Pain scale - at its best (0-10): 2 Pain scale - at its worst (0-10): 5 Allergies Allergy/AdvReac Type Severity Reaction Status Date / Time Iodinated Contrast Media Allergy Intermediate Hives per Verified 10/07/19 11:28 patient DEER DANDER Allergy Unknown Unknown Uncoded 10/07/19 11:28 Home Medications Home Medications Medication Instructions Recorded Confirmed Type clopidogrel 75 mg tablet 75 mg PO QAM #30 tab 07/18/19 10/07/19 History finasteride 5 mg tablet 5 mg PO QAM #30 tab 07/18/19 10/07/19 History metoprolol tartrate 25 mg tablet 25 mg PO BID tab 07/18/19 10/07/19 History pravastatin 40 mg tablet 40 mg PO QAM tab 07/18/19 10/07/19 History tamsulosin 0.4 mg capsule 0.4 mg PO DAILY 07/18/19 10/07/19 History aspirin [Aspirin Low Dose] 81 mg PO QAM 10/07/19 10/07/19 History hydrocodone-acetaminophen 1 tab PO BID 10/07/19 10/07/19 History Pain History Pain Intensity Pain scale - at its best (0-10): 2 Pain scale - at its worst (0-10): 5 Patient History Medical History (Updated 10/11/19 @ 08:58 by Donell Ortiz PA-C) Aortic stenosis (Inactive) S/P AVR with bioprosthetic valve 2011 [facility] Benign prostatic hyperplasia with urinary obstruction and other lower urinary tract symptoms CAD (coronary artery disease) (Chronic) Presented with traumatic syncope November 2011 and 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 He went on to have an aortic root replacement with a valve and a COLLINS graft to the LAD on 11/24/2011 at [facility]. Cerebrovascular disease CVA/TIA 2015--short term memory difficulties and other vague neurological symptoms prompted workup. Found to have severe carotid dz, now s/p L CEA 09/2016. Chronic kidney disease Dyslipidemia Hydronephrosis Admitted to [facility] 08/08-08/10 for this + urosepsis. LBBB (left bundle branch block) Mild neurocognitive disorder (Inactive) Osteoarthritis (Chronic) Presence of cardiac pacemaker For hgih grade AV block (HR was 20's-30's) with episodes of probable complete HB. Pacer implanted 10/06/13. Self-catheterizes urinary bladder Urinary retention Surgical History (Updated 10/11/19 @ 08:57 by Donell Ortiz PA-C) H/O carotid endarterectomy left History of heart valve replacement with porcine valve Hx of CABG (Resolved) [facility] 2011. Failed SVG grafts (veins weren't usable). COLLINS-LAD. 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 Speech and thought process appropriate. Mood and affect appropriate. Cognition intact. Head: Normocephalic and atraumatic. ENT: No evidence of nasal or oral mucosal lesions. Mucous membranes are moist. Eyes: Pupils equal round reactive to light. Neck: Supple without adenopathy and full range of motion. Abdomen: Soft and nondistended. No organomegaly. Bowel sounds active. Incisional site present in the right lower quadrant-bandage was not removed for visual inspection. Minimal tenderness to direct palpation. Genital: Patient has edema of the right scrotum with some ecchymosis. Nontender to palpation. Scrotum is soft. Catheter in place. Lower extremities: Sensation intact. Strength 5/5 with dorsi and plantar flexio n. No evidence of edema, erythema and skin breakdown. Neurologic: Cranial nerves grossly intact. Ambulatory function not witnessed.
[2019-10-11] MEDS: TAMSULOSIN HCL 0.4 MG CAP PO SCH (08:57)
[2019-10-11] MEDS: METOPROLOL TARTRATE 25 MG TAB PO SCH ×2 (08:57→21:01)
[2019-10-11] MEDS: FINASTERIDE 5 MG TAB PO SCH (08:58)
[2019-10-11] MEDS: ASPIRIN 81 MG ECTAB PO SCH (08:58)
[2019-10-11] MEDS: HYDROCODONE/ACETAMINOPHEN 10/325 TAB PO SCH ×2 (09:42→21:05)
[2019-10-11] MEDS: OXYCODONE/ACETAMINOPHEN 5mg/325mg TAB PO PRN (14:02)
[2019-10-11] MEDS: PRAVASTATIN SOD 40 MG TAB PO SCH (21:01)
[2019-10-12] MEDS: MoRPHine SULFATE 4 MG/ML 1 ML CARP\\VIAL IV PRN ×5 (05:18→15:17)
[2019-10-12] MEDS: TAMSULOSIN HCL 0.4 MG CAP PO SCH (09:44)
[2019-10-12] MEDS: ASPIRIN 81 MG ECTAB PO SCH (09:44)
[2019-10-12] MEDS: METOPROLOL TARTRATE 25 MG TAB PO SCH ×2 (09:44→20:50)
[2019-10-12] MEDS: HYDROCODONE/ACETAMINOPHEN 10/325 TAB PO SCH ×2 (09:44→20:51)
[2019-10-12] MEDS: FINASTERIDE 5 MG TAB PO SCH (09:45)
--- NOTE | 2019-10-12 11:51 | Urology Progress Note ---
Date of Service October 12, 2019 Assessment & Plan (1) Benign prostatic hyperplasia with urinary obstruction and other lower urinary tract symptoms: s/p TURP and R ing hernia repair Patient has been doing well. Plan is to keep catheter until follow-up. Will likely be discharged in the next day or 2. Patient is increasing activity. Major discomfort at this point is from inguinal hernia repair. Has no major issues with catheter currently. Has not major bleeding or other issues. Is s lowly starting to ambulate more is trying to increase intake. Otherwise has been resting and trying to deal with issues related to fatigue. Patient has no major questions or concerns. We will continue to follow. Subjective Status post TURP with catheter in place. CBI is off. Patient also had inguinal hernia repair. Is still having pain and discomfort in groin from this. Has been ambulating but only around the room. Is trying to ambulate more. Has low hunger at this time. Is feeling weak and fatigued. Has been otherwise tolerating and has not had noticed any return to bowel function. Has not passed any flatus. No other major issues or concerns. Urine is a clear yellow at this point. Review of Systems Review of Systems: All systems reviewed & are unremarkable except as noted in HPI & below Physical Exam 2 Physical Exam: General: Alert in no acute distress. HEENT: Normocephalic Atraumatic. Inspection normal. Cranial Nerves 2-12 Grossly intact. Normal inspection of face. Normal inspection of neck. Psychologic: Normal affect. Respiratory: Nonlabored. No use of accessory muscles. No tachypnea or dyspnea. Cardiovascular: No tachycardia Skin: [place] and Dry. No rashes or visible lesions. Extremities/Lymphatics: No edema Abdomen: Tender in groin. Ice pack in place. Covered. No rebound or guarding. : Three-way catheter in place with plug on in port. Patient draining clear yellow urine without issue. Results & Data Vital Signs (Past 12 Hours) Vital Signs Temp Pulse Pulse Resp BP Pulse Ox 10/12/19 09:41 88 179/96 H 10/12/19 06:20 37.2 C 90 20 164/86 H 90 PG Care Time/CCT Total # of Minutes Spent Total Time Spent with Patient: Total time spent is greater than 50% in coordination of care (as documented) at patient's floor/unit and/or counseling patient:
[2019-10-12] MEDS: OXYCODONE/ACETAMINOPHEN 5mg/325mg TAB PO PRN (18:50)
[2019-10-12] MEDS: PRAVASTATIN SOD 40 MG TAB PO SCH (20:50)
[2019-10-13] MEDS: OXYCODONE/ACETAMINOPHEN 5mg/325mg TAB PO PRN ×5 (05:46→21:55)
[2019-10-13] MEDS: TAMSULOSIN HCL 0.4 MG CAP PO SCH (08:47)
[2019-10-13] MEDS: ASPIRIN 81 MG ECTAB PO SCH (08:47)
[2019-10-13] MEDS: FINASTERIDE 5 MG TAB PO SCH (08:48)
[2019-10-13] MEDS: HYDROCODONE/ACETAMINOPHEN 10/325 TAB PO SCH ×2 (08:48→20:07)
[2019-10-13] MEDS: METOPROLOL TARTRATE 25 MG TAB PO SCH ×2 (08:48→20:07)
--- NOTE | 2019-10-13 11:25 | Surgery Progress Note ---
Date of Service October 13, 2019 Assessment & Plan (1) Hx of inguinal hernia surgery: Overall, doing well but with has concerns about pain management. discussed elevation of scrotum to help with edema. He does have a jock strap in the room but towels may be more effective when laying in bed. No contraindication to discharge if pain can be managed on oral meds. Subjective Unaware pt was in hospital as he had not been signed out and was not on our list (therefore, not seen yesterday). Nurse had called with question which alerted me to his presence. He is s/p right inguinal hernia repair by Dr. Trevino. Notes trouble with pain management - percocet is just taking the edge off of the pain but he does not want further IV morphine. Has swelling in right scrotum. Pittman in place as he also had turp prior to [facility]. Physical Exam Gastrointestinal (Abdomen): right groin incision looks good, significant scrotal swelling Results & Data Vital Signs (Past 12 Hours) Vital Signs Temp Pulse Resp BP Pulse Ox 10/13/19 08:44 77 130/66 10/13/19 07:35 36.7 C 80 16 118/64 92
--- NOTE | 2019-10-13 11:42 | Urology Progress Note ---
Date of Service October 13, 2019 Assessment & Plan (1) Benign prostatic hyperplasia with urinary obstruction and other lower urinary tract symptoms: s/p TURP and R ing hernia repair No major change from yesterday. Patient has been doing well. Plan is to keep catheter until follow-up. Will likely be discharged in the next day or 2. Patient is increasing activity. Major discomfort at this point is from inguinal hernia repair. Has no major issues with catheter currently. Has not major bleeding or other issues. Is slowly starting to ambulate more is trying to increase intake. Otherwise has been resting and trying to deal with issues related to fatigue. Patient has no major questions or concerns. We will continue to follow. As patient will likely have catheter out tomorrow in the office if he had been discharged we will likely plan to remove tomorrow. Patient still concerned that his pain is too much and he has not been moving enough to go home at this point. Subjective Patient status post TURP and inguinal hernia repair. Continues to have pain issues in flank and groin secondary to incisional pain from hernia repair. Has been slowly ambulating. Has been tolerating a little bit of a diet. Has been tolerating catheter. Has some burning and irritation with catheter. Catheter has largely cleared without further bleeding or other issues. Patient has not had return of bowel function yet is tolerating liquids and a light diet. Pain has been controlled with medications. Review of Systems Review of Systems: All systems reviewed & are unremarkable except as noted in HPI & below Physical Exam Physical Exam: General: Alert in no acute distress. HEENT: Normocephalic Atraumatic. Inspection normal. Cranial Nerves 2-12 Grossly intact. Normal inspection of face. Normal inspection of neck. Psychologic: Normal affect. Respiratory: Nonlabored. No use of accessory muscles. No tachypnea or dyspnea. Cardiovascular: No tachycardia Skin: [place] and Dry. No rashes or visible lesions. Extremities/Lymphatics: No edema Abdomen: Soft Non-distended. No rebound or guarding. : Groin pain secondary to hernia repair. Catheter in place draining clear yellow urine. Results & Data Vital Signs (Past 12 Hours) Vital Signs Temp Pulse Resp BP Pulse Ox 10/13/19 08:44 77 130/66 10/13/19 07:35 36.7 C 80 16 118/64 92 PG Care Time/CCT Total # of Minutes Spent Total Time Spent with Patient: Total time spent is greater than 50% in pharmacy benefits coordinator rdination of care (as documented) at patient's floor/unit and/or counseling patient:
[2019-10-13] MEDS: PRAVASTATIN SOD 40 MG TAB PO SCH (20:08)
[2019-10-14] MEDS: OXYCODONE/ACETAMINOPHEN 5mg/325mg TAB PO PRN ×3 (04:41→19:51)
[2019-10-14 05:29] LABS: Basophils # (auto) 0.02 K/uL (0-0.2); Basophils % (auto) 0.2 %; Eosinophils % (auto) 2.8 %; Hematocrit (blood only) 36.5 % (42-52); Immature Granulocytes # (auto) 0.03 K/uL (0.00-0.02); Immature Granulocytes % (auto) 0.3 %; Lymphocytes # (auto) 1.61 K/uL (1.2-3.4); Lymphocytes % (auto) 15.3 %; Mean Corpuscular Hemoglobin 30.4 pg (25-34); Mean Corpuscular Hgb Conc 32.9 g/dL (32-36); Mean Corpuscular Volume 92.4 fL (80-100); Mean Platelet Volume 10.2 fL (7.4-10.4); Monocytes # (auto) 1.43 K/uL (0.11-0.59); Monocytes % (auto) 13.6 %; Neutrophils # (auto) 7.15 K/uL (1.4-6.5); Neutrophils % (auto) 67.8 %; Platelet Count 189 K/uL (130-400); RDW Coefficient of Variation 13.7 % (11.5-14.5); RDW Standard Deviation 46.4 fL (36.4-46.3); Red Blood Count 3.95 M/uL (4.7-6.1); White Blood Count 10.54 K/uL (4.8-10.8)
[2019-10-14 05:59] LABS: Calcium 8.4 mg/dl (8.5-10.1); Creatinine Clr Calc Pharmacy 53.5 ml/min; Est GFR (African American) 58.6; Est GFR (Non-African American) 50.5
[2019-10-14] MEDS: METOPROLOL TARTRATE 25 MG TAB PO SCH ×2 (07:16→21:00)
[2019-10-14] MEDS: HYDROCODONE/ACETAMINOPHEN 10/325 TAB PO SCH ×2 (07:16→21:00)
[2019-10-14] MEDS: FINASTERIDE 5 MG TAB PO SCH (07:16)
[2019-10-14] MEDS: ASPIRIN 81 MG ECTAB PO SCH (07:16)
[2019-10-14] MEDS: TAMSULOSIN HCL 0.4 MG CAP PO SCH (07:17)
--- NOTE | 2019-10-14 07:25 | Surgery Progress Note ---
Date of Service October 14, 2019 Assessment & Plan (1) Hx of inguinal hernia surgery: will start on bowel regimen seen with Dr. Trevino Subjective still having inguinal pain, no BM Physical Exam Gastrointestinal (Abdomen): Inspection/Auscultation: + abdominal surgical incision (clean, dry, scrotal swelling) Percussion/Palpation: abdomen soft Results & Data Vital Signs (Past 12 Hours) Vital Signs Temp Pulse Pulse Resp BP Pulse Ox 10/13/19 23:25 37.1 C 82 16 149/52 H 92 10/13/19 19:57 86 137/62 92 PG Care Time/CCT Total # of Minutes Spent Total Time Spent with Patient: Total time spent is greater than 50% in coordination of care (as documented) at patient's floor/unit and/or counseling patient:
[2019-10-14] MEDS: POLYETHYLENE (MIRALAX) 17 GM PACK PO SCH (08:37)
[2019-10-14] MEDS: DOCUSATE SODIUM 100 MG CAP PO SCH ×2 (08:37→20:46)
--- NOTE | 2019-10-14 09:47 | Urology Progress Note ---
Date of Service October 14, 2019 Assessment & Plan (1) Benign prostatic hyperplasia with urinary obstruction and other lower urinary tract symptoms: 74yo M POD #6 s/p TURP with Dr. Collazo and POD #4 s/p scrotal hernia repair with Dr. Trevino. Pt continues to progress as expected, he remains very resistant to discharge. He states he wants to "make sure everything is good". Appreciate general surgery's recommendations. Plan for removal of jin catheter tomorrow at 6AM. He will be cleared for discharge after spontaneous void tomorrow. . Subjective 74yo M POD #6 s/p TURP with Dr. Collazo and POD #4 s/p scrotal hernia repair with Dr. Trevino. Continues with some pain control issues. Chart review - WBC and Cr WNL. VSS Denies n/v/f/c. Jin draining clear, has been off CBI x at least 3 days. Review of Systems Review of Systems: All systems reviewed & are unremarkable except as noted in HPI & below Physical Exam Physical Exam: A&Ox3 RRR Abd soft, nontender jin draining clear yellow Scrotum remains swollen but much improved per patient report. Results & Data Vital Signs (Past 12 Hours) Vital Signs Temp Pulse Resp BP Pulse Ox 10/14/19 07:45 36.9 C 85 16 168/82 H 92 10/13/19 23:25 37.1 C 82 16 149/52 H 92 PG Care Time/CCT Total # of Minutes Spent Total Time Spent with Patient: Total time spent is greater than 50% in coordination of care (as documented) at patient's floor/unit and/or counseling patient:
[2019-10-14] MEDS: MoRPHine SULFATE 4 MG/ML 1 ML CARP\\VIAL IV PRN ×2 (11:13→16:45)
[2019-10-14] MEDS: PRAVASTATIN SOD 40 MG TAB PO SCH (20:46)
[2019-10-15] MEDS: OXYCODONE/ACETAMINOPHEN 5mg/325mg TAB PO PRN (00:40)
[2019-10-15] MEDS: MoRPHine SULFATE 4 MG/ML 1 ML CARP\\VIAL IV PRN ×12 (02:12→23:41)
[2019-10-15] MEDS: FINASTERIDE 5 MG TAB PO SCH (08:35)
[2019-10-15] MEDS: HYDROCODONE/ACETAMINOPHEN 10/325 TAB PO SCH ×2 (08:35→20:48)
[2019-10-15] MEDS: DOCUSATE SODIUM 100 MG CAP PO SCH ×2 (08:36→20:49)
[2019-10-15] MEDS: METOPROLOL TARTRATE 25 MG TAB PO SCH ×2 (08:36→20:49)
[2019-10-15] MEDS: POLYETHYLENE (MIRALAX) 17 GM PACK PO SCH (08:36)
[2019-10-15] MEDS: TAMSULOSIN HCL 0.4 MG CAP PO SCH (08:36)
[2019-10-15] MEDS: ASPIRIN 81 MG ECTAB PO SCH (08:36)
[2019-10-15] MEDS ORDERED: BELLADONNA/OPIUM SUPP 60 MG SUPP PR PRN (16:43)
--- NOTE | 2019-10-15 16:50 | Communication Note ---
Date of Service: October 15, [address] Clolazo today. Pittman catheter removed, unable to void spontaneously. Straight cathed for 575 by nursing this afternoon. Will continue to straight cath q8h for PVR >500 until tomorrow AM and will reassess. B&O suppositories added for bladder spasms. Discomfort mostly in scrotum, requiring morphine q1-2hours. Will add IV tylenol to hopefully help wean off narcotic.
[2019-10-15] MEDS: ACETAMINOPHEN 1,000 MG/100 ML VIAL IV SCH (17:54)
[2019-10-15] MEDS: PRAVASTATIN SOD 40 MG TAB PO SCH (20:49)
[2019-10-16] MEDS: ACETAMINOPHEN 1,000 MG/100 ML VIAL IV SCH ×3 (02:13→18:28)
[2019-10-16] MEDS: MoRPHine SULFATE 4 MG/ML 1 ML CARP\\VIAL IV PRN ×5 (06:11→21:07)
[2019-10-16] MEDS: OXYCODONE/ACETAMINOPHEN 5mg/325mg TAB PO PRN (07:28)
[2019-10-16] MEDS ORDERED: IBUPROFEN 600 MG TAB PO PRN (07:37)
--- NOTE | 2019-10-16 08:00 | Urology Progress Note ---
Date of Service October 16, 2019 Assessment & Plan (1) S/P TURP (status post transurethral resection of prostate): From a standpoint, doing about as expected I suspect he will continue to have urinary difficulties until he can wean his narcotic use and improve his bowel function/ambulation Ultimately anticipate a good response and return to spontaneous voiding but I suspect it will take time to achieve this Unfortunately, his other issues are prolonging his hospitalization and I am uncertain how best to proceed with treating these Subjective Doing okay Required straight cath x2 overnight He remains on high doses of morphine, he has not had a bowel movement in 7+ days He is nonambulatory He is complaining of neuropathic pain of his feet Review of Systems Review of Systems: All systems reviewed & are unremarkable except as noted in HPI & below Physical Exam Physical Exam: Continued, substantial scrotal swelling, somewhat buried penis secondary to the degree of swelling Incision appropriate Some edema of his lower extremities Results & Data Vital Signs (Past 12 Hours) Vital Signs Temp Pulse Resp BP BP Pulse Ox 10/16/19 07:44 36.9 C 94 H 18 146/74 H 94 10/15/19 23:13 36.8 C 86 18 146/84 H 95 10/15/19 20:48 92 H 160/77 H PG Care Time/CCT Total # of Minutes Spent Total Time Spent with Patient: Total time spent is greater than 50% in coordination of care (as documented) at patient's floor/unit and/or counseling patient:
--- NOTE | 2019-10-16 08:09 | Surgery Progress Note ---
Date of Service October 16, 2019 Assessment & Plan (1) Hx of inguinal hernia surgery: POD 6 right inguinal hernia repair seen with Dr. Trevino add ibuprofen continue miralax and scrotal support Subjective still having some n pain from hernia repair, voiding ok Physical Exam Constitutional: WD/WN, vitals as above well developed and well nourished Eyes: PERRL, conjunctivae normal, anicteric sclerae ENMT: external ear and nose normal, oropharynx normal Respiratory: normal respiratory effort, lungs clear to auscultation Cardiovascular: RRR, no murmur, no edema Gastrointestinal (Abdomen): Inspection/Auscultation: + abdominal surgical incision (clean, dry, scrotal swelling unchanged) Results & Data Vital Signs (Past 12 Hours) Vital Signs Temp Pulse Resp BP BP Pulse Ox 10/16/19 07:44 36.9 C 94 H 18 146/74 H 94 10/15/19 23:13 36.8 C 86 18 146/84 H 95 10/15/19 20:48 92 H 160/77 H PG Care Time/CCT Total # of Minutes Spent Total Time Spent with Patient: Total time spent is greater than 50% in coordination of care (as documented) at patient's floor/unit and/or counseling patient:
[2019-10-16] MEDS: TAMSULOSIN HCL 0.4 MG CAP PO SCH (08:52)
[2019-10-16] MEDS: DOCUSATE SODIUM 100 MG CAP PO SCH ×2 (08:52→21:07)
[2019-10-16] MEDS: ASPIRIN 81 MG ECTAB PO SCH (08:52)
[2019-10-16] MEDS: POLYETHYLENE (MIRALAX) 17 GM PACK PO SCH (08:52)
[2019-10-16] MEDS: METOPROLOL TARTRATE 25 MG TAB PO SCH ×2 (08:53→21:06)
[2019-10-16] MEDS: FINASTERIDE 5 MG TAB PO SCH (08:53)
[2019-10-16] MEDS: HYDROCODONE/ACETAMINOPHEN 10/325 TAB PO SCH ×2 (08:53→21:02)
[2019-10-16] MEDS: PRAVASTATIN SOD 40 MG TAB PO SCH (21:06)
[2019-10-17] MEDS: MoRPHine SULFATE 4 MG/ML 1 ML CARP\\VIAL IV PRN ×7 (00:11→18:52)
[2019-10-17] MEDS: ACETAMINOPHEN 1,000 MG/100 ML VIAL IV SCH ×3 (03:02→17:00)
--- NOTE | 2019-10-17 08:34 | Surgery Progress Note ---
Date of Service October 17, 2019 Assessment & Plan (1) Hx of inguinal hernia surgery: pod 7 right inguinal scrotal hernia repair Long discussion with Robert regarding his pain management we had pain management see the patient and we will asked to see him again The discomfort in his scrotal area I would expect with significant distention that he had with a large scrotal hernia may take some time to dissipate the edema We will diurese him today even though his fluid balance appears to be balance on record appears to be balanced We will discuss with urology possibility of sending home with a Pittman From the hernia surgery there is nothing further needs to be done with the exception of excepting the fact that he would have some scrotal edema for some time due to his preoperative condition POD 6 right inguinal hernia repair seen with Dr. Trevino add ibuprofen continue miralax and scrotal support Subjective 12 pod 7 hernia repair Still having issues with pain management describes as a burning pain in her right groin area also back pain Stated he needed to be straight cath for residual 600 He had a bowel movement and feels better still having some n pain from hernia repair, voiding ok Physical Exam Physical Exam: Patient is sitting the side of the bed fairly comfortable with the exception that he said some burning in his right groin and scrotum The abdomen is benign the incision is healing well significant residual swelling in his scrotal sac hard to delineate the penal shaft Patient has +2 pedal edema Results & Data Vital Signs (Past 12 Hours) Vital Signs Temp Pulse Pulse Resp BP BP Pulse Ox 10/17/19 07:59 37.2 C 96 H 22 173/90 H 94 10/16/19 22:45 36.9 C 84 16 115/61 92 10/16/19 21:05 88 164/76 H PG Care Time/CCT Total # of Minutes Spent Total Time Spent with Patient: Total time spent is greater than 50% in coordination of care (as documented) at patient's floor/unit and/or counseling patient:
[2019-10-17] MEDS: METOPROLOL TARTRATE 25 MG TAB PO SCH ×2 (08:42→21:29)
[2019-10-17] MEDS: HYDROCODONE/ACETAMINOPHEN 10/325 TAB PO SCH (08:42)
[2019-10-17] MEDS: DOCUSATE SODIUM 100 MG CAP PO SCH ×2 (08:42→21:29)
[2019-10-17] MEDS: FINASTERIDE 5 MG TAB PO SCH (08:42)
[2019-10-17] MEDS: ASPIRIN 81 MG ECTAB PO SCH (08:43)
[2019-10-17] MEDS: TAMSULOSIN HCL 0.4 MG CAP PO SCH (08:43)
[2019-10-17] MEDS: POLYETHYLENE (MIRALAX) 17 GM PACK PO SCH (08:43)
[2019-10-17] MEDS ORDERED: FUROSEMIDE 20 MG in SYRINGE 0 ML IV ONE (09:00)
[2019-10-17 09:07] LABS: Basophils # (auto) 0.02 K/uL (0-0.2); Basophils % (auto) 0.2 %; Eosinophils # (auto) 0.18 K/uL (0-0.5); Eosinophils % (auto) 1.8 %; Hematocrit (blood only) 34.6 % (42-52); Hemoglobin 11.7 g/dL (14.0-18.0); Immature Granulocytes # (auto) 0.05 K/uL (0.00-0.02); Immature Granulocytes % (auto) 0.5 %; Lymphocytes # (auto) 1.54 K/uL (1.2-3.4); Mean Corpuscular Hemoglobin 30.5 pg (25-34); Mean Corpuscular Hgb Conc 33.8 g/dL (32-36); Mean Corpuscular Volume 90.3 fL (80-100); Mean Platelet Volume 9.8 fL (7.4-10.4); Monocytes # (auto) 1.06 K/uL (0.11-0.59); Monocytes % (auto) 10.4 %; Neutrophils # (auto) 7.39 K/uL (1.4-6.5); Neutrophils % (auto) 72.1 %; Platelet Count 209 K/uL (130-400); RDW Coefficient of Variation 13.5 % (11.5-14.5); RDW Standard Deviation 44.8 fL (36.4-46.3); Red Blood Count 3.83 M/uL (4.7-6.1); White Blood Count 10.24 K/uL (4.8-10.8)
[2019-10-17 09:27] LABS: BUN Creatinine Ratio 19.5 (10-20); Calcium 9.3 mg/dl (8.5-10.1); Creatinine Clr Calc Pharmacy 49.8 ml/min; Est GFR (African American) 53.8; Est GFR (Non-African American) 46.4; Potassium 4.4 mmol/L (3.5-5.1)
--- NOTE | 2019-10-17 09:44 | Urology Progress Note ---
Date of Service October 17, 2019 Assessment & Plan (1) S/P TURP (status post transurethral resection of prostate): (2) Suicidal thoughts: 74yo M s/p TURP and inguinal hernia repair, prolonged hospitalization for pain control issues. Medical Management: - Plan to allow pt to straight cath PRN - Consult OT for possible rehab placement, appreciate PT recommendations thus far - Consult Case Management for discharge planning - Reconsult pain management for recommendations. Pt is requesting IV morphine every 1-2 hours. Takes 20mg hydrocodone at home daily. States if he converts to PO pain control he wants "it to work". We are concerned with his expectations for pain control due to chronic pain - Consult Hospitalist, Dr Gamez, for additional support with medical management. Spoke with him directly. Suicidal Ideation: - Concerned with suicidal ideation. Appreciate psychiatric consultation to further assist. Discussed with RN acid supervisor, suicidal precautions taken until further direction. Subjective Pain control continues to be an issue this AM. He is sitting at side of bed. In conversation, he has made multiple end of life comments, denies suicidal ideation but then also comments that he knows how to end his life if he wanted to. 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 He expresses he lived a good life, and feels his quality of life is poor due to uncontrolled pain. He referenced that we put dogs to sleep, why can't we do the same with people. He states he can determine when it is time to go "out to pasture". He did comment that he wants to life with his , travel to [place], and spend time with grandchildren. Very tangential and rambled speech, very difficult to get a clear understanding of his current thought processes. Review of Systems Review of Systems: All systems reviewed & are unremarkable except as noted in HPI & below Physical Exam Physical Exam: A&Ox3 Resp rate regular abd soft deep pitting edema to BLE Results & Data Vital Signs (Past 12 Hours) Vital Signs Temp Pulse Resp BP BP Pulse Ox 10/17/19 07:59 37.2 C 96 H 22 173/90 H 94 10/16/19 22:45 36.9 C 84 16 115/61 92 PG Care Time/CCT Total # of Minutes Spent Total Time Spent with Patient: Total time spent is greater than 50% in coordination of care (as documented) at patient's floor/unit and/or counseling patient:
[2019-10-17] MEDS ORDERED: diazePAM 5 MG TABLET PO PRN (12:45)
--- NOTE | 2019-10-17 13:01 | Hospitalist Consultation ---
Date of Consultation October 17, 2019 Assessment & Plan (1) Fluid overload: Clinically appears to have fluid overload, also his creatinine has decreased from 1.6-2 baseline currently to 1.4 which I believe is delusional effect rather than an improvement. Received 20 mg of Lasix IV x1 I will start him on 5 days of Lasix 20 mg IV. daily starting tomorrow, follow-up renal function daily while on Lasix Slight bump of creatinine to a level between 1.4 to 1.6 as expected Giving his chronic kidney disease stage III, I would avoid ibuprofen despite of the significant benefit of the anti-inflammatory effect, the reason is I rather not give him both ibuprofen and Lasix simultaneously. Large scrotal swelling with severe pain and muscle spasm in lower abdomen and thigh. I had a long discussion with him and his about his part of his medical care and his role and participating with physical therapy and scrotal elevation. With the help of his bedside sitter and his we managed to lay him flat in the chair and put a towel under his scrotum to bring the scrotum up, he was noticed to have some erythema started to develop between his thigh and his scrotum, he was encouraged to open his legs and irrigate this area, a clean dry towel was placed between the scrotum and the thigh, nystatin powder was ordered twice a day to that area, he also promised to sleep in bed today with the mid side of the bed at scrotal side elevated, he asks for 1 dose diazepam when that time, when he has to transfer from chair to bed, I promised him we will do that for him. He also promised to participate with physical therapy and Occupational Therapy. The wound itself looks very clean and dry, leni are in place, but I encouraged him to aggressively continue scrotal elevation because I was concerned about edema extending to the stables and probably causing stables failure, I believe a small dose of lasix might help as well. Obtain BMP daily to check on kidney function. Benefits of DVT prophylaxis outweighs the risk given the fact that he has been sitting in chair almost chair bound, discussed with patient and with primary team, will initiate heparin 5000 subcu every 8 hours If renal function remains stable at baseline, creatinine below 2 then we will follow the patient as needed Please call us if you have any question as after managing his fluid overload, initiation of pharmacologic DVT prophylaxis, initiation of his Plavix and aspirin, I do not think he has any active medical issues (2) Suicidal thoughts: psychiatrist evaluation (3) S/P TURP (status post transurethral resection of prostate): procedure went well discussed with primary team starting heparin SQ and plavix today (4) Hx of inguinal hernia surgery: incision is clean and dry procedure went well (5) Benign prostatic hyperplasia with urinary obstruction and other lower urinary tract symptoms: management as per primary team (6) Chronic kidney disease: Creatinine today is 1.4, delusional effect, expect slight increase with Lasix Avoid nonsteroidal anti-inflammatory drugs (7) LBBB (left bundle branch block): with high degree heart block s/p pacemaker (8) Aortic valve replaced: bioprosthetic valve start his plavix and ASA (9) Embolism of left carotid artery: continue palvix / ASA if ok with primary team (10) H/O carotid endarterectomy: as above (11) Cerebrovascular disease: As above, continue Plavix/aspirin/statin (12) History of heart valve replacement with porcine valve: As above, valve is bioprosthetic History of Present Illness Reason for Consultation: Medical management Requesting Physician: Dr. 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 Patient presented to the hospital for an elective TURP procedure and hernia repair. Both procedures went uneventful. Postsurgical course was complicated by significant pain likely related to scrotal swelling. Patient was not participating in scrotal elevation and mobilization. Patient continue with to sit on a chair, did not participate in ambulation suggested by nursing staff due to his pain. Today he made a comment that he wish he dies, suicidal precaution was initiated appropriately regardless of his intention of the suicidal comment he made. We were consulted by primary team to see if there is any thoughts about his management that we can add, also he seems to be fluid overloaded and we were consulted to evaluate him for that. He currently denies any symptoms except his scrotal pain and stiffness. Allergies Allergy/AdvReac Type Severity Reaction Status Date / Time Iodinated Contrast Media Allergy Intermediate Hives per Verified 10/07/19 11:28 patient DEER DANDER Allergy Unknown Unknown Uncoded 10/07/19 11:28 Home Medications Home Medications Medication Instructions Recorded Confirmed Type clopidogrel 75 mg tablet 75 mg PO QAM #30 tab 07/18/19 10/07/19 History finasteride 5 mg tablet 5 mg PO QAM #30 tab 07/18/19 10/07/19 History metoprolol tartrate 25 mg tablet 25 mg PO BID tab 07/18/19 10/07/19 History pravastatin 40 mg tablet 40 mg PO QAM tab 07/18/19 10/07/19 History tamsulosin 0.4 mg capsule 0.4 mg PO DAILY 07/18/19 10/07/19 History aspirin [Aspirin Low Dose] 81 mg PO QAM 10/07/19 10/07/19 History hydrocodone-acetaminophen 1 tab PO BID 10/07/19 10/07/19 History hydrocodone-acetaminophen [[place]] 1 tab PO Q6H PRN #15 tab 10/11/19 Rx Patient History Medical History (Updated 10/17/19 @ 13:18 by Sarah Gamez MD) Aortic stenosis (Inactive) S/P AVR with bioprosthetic valve [place] [facility] [place] Benign prostatic hyperplasia with urinary obstruction and other lower urinary tract symptoms CAD (coronary artery disease) (Chronic) Presented with traumatic syncope November 2011 and 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 He went on to have an aortic root replacement with a valve and a COLLINS graft to the LAD on 11/24/2011 at [facility]. Cerebrovascular disease CVA/TIA 2015--short term memory difficulties and other vague neurological symptoms prompted workup. Found to have severe carotid dz, now s/p L CEA 09/2016. Chronic kidney disease Dyslipidemia Hydronephrosis Admitted to [facility] 08/08-08/10 for this + urosepsis. LBBB (left bundle branch block) Mild neurocognitive disorder (Inactive) Osteoarthritis (Chronic) Presence of cardiac pacemaker For hgih grade AV block (HR was 20's-30's) with episodes of probable complete HB. Pacer implanted 10/06/13. Self-catheterizes urinary bladder Urinary retention Surgical History (Updated 10/17/19 @ 13:18 by Sarah Gamez MD) H/O carotid endarterectomy left History of heart valve replacement with porcine valve Hx of CABG (Resolved) [facility] [place]. Failed SVG grafts (veins weren't usable). COLLINS-LAD. 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 Feels Safe at Home: Yes Smoking Status: Never smoker Second Hand Exposure: No ; Hx Alcohol Use: No Hx Substance Use: No Review of Systems Review of Systems: Review of system Constitutional: No fever / no chills / no sweats / no weakness / no fatigue Eyes: no blurring of vision / no eye pain / no discharge / no redness ENT: no hearing loss / no epistaxis /no swallowing problems Respiratory: no cough / no wheezing / no SOB / no hemoptysis Cardiovascular: no Chest pain / no lower extremity edema / no palpitation Abdomen: no pain / no nausea / no vomiting / no constipation Musculoskeletal: no joint pain / no muscle pain / no joint swelling Genitourinary: Severe scrotal swelling and pain and tenderness Neurologic: no focal weakness / no numbness/tingling / no ataxia Psychiatric: no depression symptoms / no anxiety / no insomnia Endocrine: no excessive thirst / no excessive urination Hematologic: no abnormal bleeding / no bruising / no LN swelling Skin: No rash / no pallor Physical Exam Physical Exam: Physical examination General patient appears to be comfortable, not in acute distress HEENT: Atraumatic , normocephalic /no jaundice /no pallor /anicteric /no dry mucous membrane /normal external ear inspection Neck: Supple /no swelling /central trach Heart: S1/S2 normal/regular rate and rhythm/no gallop /no rub /no murmur Lungs: Clear to auscultation bilaterally/normal chest with expansion/no rhonchi/no rales/no wheezing/no use of accessory muscles of respiration Abdomen: Soft/nontender/no guarding/no rebound/no organomegaly/no pulsatile ma ss, severe scrotal swelling, tenderness, incision in the right inguinal area appears to be clean and dry with dry leni all in place, some erythema starts to develop between the scrotum and his thighs. Musculoskeletal: No swelling/no edema/no tenderness/normal range of motion Neuro exam: Awake alert oriented 3/cranial nerves II through XII appear to be intact/sensation intact/moves all extremities/no abnormal movements Psychiatric evaluation: No depressed mood/normal affect Skin: No rash on exposed skin area/no erythema Extremity: Normal pulse/no pitting edema/no clubbing or cyanosis Results & Data Vital Signs (Past 12 Hours) Vital Signs Temp Pulse Resp BP Pulse Ox 10/17/19 11:26 139/63 10/17/19 07:59 37.2 C 96 H 22 173/90 H 94 PG Care Time/CCT Total # of Minutes Spent Total Time Spent with Patient: 35 minutes total time spent is greater than 50% in coordination of care (as documented) at patient's floor/unit and/or counseling patient/family discussion of care with nursing staff
[2019-10-17] MEDS ORDERED: CLOPIDOGREL BISULFATE 75 MG TAB PO ONE (13:02)
[2019-10-17] MEDS ORDERED: MoRPHine SULFATE 4 MG/ML 1 ML CARP\\VIAL IV PRN (13:16)
[2019-10-17] MEDS ORDERED: NYSTATIN POWDER 15GM BTL EXT PRN (13:30)
[2019-10-17] MEDS: HEPARIN SOD 5,000 UNIT/0.5 ML VIAL SQ SCH ×2 (13:49→21:01)
--- NOTE | 2019-10-17 14:14 | Pain Management Progress Note ---
Date of Service October 17, 2019 Assessment & Plan (1) S/P TURP (status post transurethral resection of prostate): (2) Hx of inguinal hernia surgery: 1. Discontinue Hydrocodone. 2. Initiated on Oxycodone 10mg x 4 hours PRN pain. 3. Dilaudid 1mg IV has been limited to x 8 hours. 4. I have explained to the patient that he should be limiting IV use in preparation for discharge. (3) Suicidal thoughts: Subjective Mr. Chaudhari is day #8 status post right inguinal hernia repair and day #10 status post TURP procedure. Patient states that his pain has not been well controlled since the surgery. He was chronically on hydrocodone 10/325 twice daily for diffuse arthritic pains. Since surgery he describes a sharp stabbing pain along the right groin and into the right scrotum. He is in pain with walking, standing, or movement. Elevation of the scrotum does provide mild pain relief. He rates his pain 4/10 currently. He states that he recently got a IV Morphine so his pain is well controlled. He has tried Oxycodone 5/325mg x 2 tablets only a few times in the last several days and states that it was not effective. Patient denies any urinary complaints. Pain Assessment Pain Assessment Full Body Front + Back: 1. [facility] Combined Pain Scale: 4-Mild to Mod - Interrupts ADLs. Decreas e in job performance Physical Exam Physical Exam: General: This is a 74 year old white male. Speech is slowed. He is forgetful and drowsy appearing. Does not appear in acute pain. Accompanied by his . Head/face: Normocephalic and atraumatic. Eyes: No drainage or conjunctival injection. Chest/Axilla: Chest movement symmetrical. No deformities noted. Skin: [place]ason, warm and dry. No rash noted. ABDOMEN: There is mild diffuse tenderness along the right groin and scrotum. No focal area of tenderness. MS/Extremity: No swelling, no deformities. Moving extremities appropriately. Neuro: Alert and appears oriented. Speech is fluent. Cranial Nerves are grossly intact. Psych: Alert, pleasant, affect is calm SKIN: Jones on right groin incision appear to be healing well.
[2019-10-17] MEDS: OXYCODONE HCL IR 5 MG TAB (IMMEDIATE RELEASE) PO PRN ×2 (15:19→21:38)
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
--- NOTE | 2019-10-17 16:37 | Ultrasound Report ---
BILATERAL LOWER EXTREMITY VENOUS DOPPLER HISTORY: Lower extremity pain., r/o dvt COMPARISON STUDY: None. FINDINGS: There is normal compressibility, flow, and augmentation within the bilateral lower extremit y deep venous systems. Thrombosed superficial vein within the proximal calf. This does not clearly dr ain into the popliteal vein. IMPRESSION: No DVT within the right or left lower extremity. Thrombosed superficial vein within the proximal calf . This does not clearly drain into the popliteal vein. Electronically signed by: David De Anda M.D. 10/17/2019 4:36 PM
[2019-10-17] MEDS: PRAVASTATIN SOD 40 MG TAB PO SCH (21:29)
[2019-10-17] MEDS: TRAMADOL HCL 50 MG TABLET PO PRN (23:47)
[2019-10-18] MEDS: ACETAMINOPHEN 1,000 MG/100 ML VIAL IV SCH ×2 (02:56→10:36)
[2019-10-18] MEDS: MoRPHine SULFATE 4 MG/ML 1 ML CARP\\VIAL IV PRN (05:46)
[2019-10-18] MEDS: HEPARIN SOD 5,000 UNIT/0.5 ML VIAL SQ SCH ×3 (06:10→21:32)
[2019-10-18] MEDS: OXYCODONE HCL IR 5 MG TAB (IMMEDIATE RELEASE) PO PRN ×4 (07:45→20:52)
[2019-10-18 08:48] LABS: BUN Creatinine Ratio 18.4 (10-20); Calcium 9.4 mg/dl (8.5-10.1); Est GFR (African American) 48.9; Est GFR (Non-African American) 42.2; Potassium 4.5 mmol/L (3.5-5.1)
--- NOTE | 2019-10-18 08:49 | Pain Management Progress Note ---
Date of Service October 18, 2019 Assessment & Plan (1) S/P TURP (status post transurethral resection of prostate): (2) Hx of inguinal hernia surgery: 1. Continue Oxycodone 10mg x 4 hours PRN pain. 2. Morphine 4mg will remain at x 8 hours. 3. We have discussed his readiness for discharge and if possible [facility] This is deferred to case management. He does feel ready for discharge from the hospital. Thank you for the consultation and please call with any questions or concerns. Subjective Mr. Chaudhari is day #9 status post right inguinal hernia repair and day #11 status post TURP procedure. For postoperative pain he has been transitioned to Oxycodone 10mg x 4 hours PRN and Morphine 4mg IV was switched from x 1 hour to x 8 hours yesterday. He does find Oxycodone effective towards diminishing his pain. He has used the Oxycodone three times over the last 24 hours and the Morphine twice. Patient did report soreness at the incision site last night. Pain is 5/10 currently. No fevers, chills. Pain Assessment Pain Assessment Full Body Front + Back: 1. [facility] Combined Pain Scale: 5-Moderate - Cannot perform normal tasks without increase in pain Physical Exam 2 Physical Exam: General: This is a 74 year old white male. Does not appear in acute pain. Skin: [place], warm and dry. No rash noted. ABDOMEN: There is mild diffuse tenderness along the right groin and scrotum. No focal area of tenderness. Neuro: Alert and appears oriented. Speech is fluent. Cranial Nerves are grossly intact. Psych: Alert, pleasant, affect is calm SKIN: Magness on right groin incision appear to be healing well.
[2019-10-18] MEDS: CLOPIDOGREL BISULFATE 75 MG TAB PO SCH (09:32)
[2019-10-18] MEDS: FUROSEMIDE 20 MG in SYRINGE 0 ML IV SCH (09:33)
[2019-10-18] MEDS: METOPROLOL TARTRATE 25 MG TAB PO SCH ×2 (09:36→20:19)
[2019-10-18] MEDS: DOCUSATE SODIUM 100 MG CAP PO SCH ×2 (09:40→20:19)
[2019-10-18] MEDS: POLYETHYLENE (MIRALAX) 17 GM PACK PO SCH (09:45)
[2019-10-18] MEDS: FINASTERIDE 5 MG TAB PO SCH (10:35)
[2019-10-18] MEDS: TAMSULOSIN HCL 0.4 MG CAP PO SCH (10:35)
[2019-10-18] MEDS: ASPIRIN 81 MG ECTAB PO SCH (10:35)
--- NOTE | 2019-10-18 11:28 | Surgery Progress Note ---
Date of Service October 18, 2019 Assessment & Plan (1) Hx of inguinal hernia surgery: pod8 right inguinal scrotal hernia repair postoperative day 10th TUR The patient spending most of his time sitting has developed peripheral edema and scrotal edema yesterday we instituted some diuretics we recommended to be weight but no weight is been done at this time or yesterday nurses were notified to please start and orders in the chart The patient has been eating well and his bowels have been moving and he stated that he can walk to the bathroom slowly with the assistance of a walker and has been able to urinate Events of yesterday regarding the psychiatric consult of known dog for 25 years or so and the kids around about it sometimes regarding putting me out of my misery as a saying Abdominal exam at this time is benign the incision is healed well still has moderate pedal edema and scrotal edema with no seepage from the skin on the scrotum is complaining of significant spasm in both legs which he had had even preoperatively at this time will address and give him some Valium a couple times a day that may help with spasm I discussed the situation with Haroon and his and I think it would be appropriate for him to go to rehab per time. But I suspect he will be kept here in the hospital over the weekend to try to get a hold of his discomfort and his edema Dr. Mcconnell will be covering the weekend pod 7 right inguinal scrotal hernia repair Long discussion with Robert regarding his pain management we had pain management see the patient and we will asked to see him again The discomfort in his scrotal area I would expect with significant distention that he had with a large scrotal hernia may take some time to dissipate the edema We will diurese him today even though his fluid balance appears to be balance on record appears to be balanced We will discuss with urology possibility of sending home with a [facility] From the hernia surgery there is nothing further needs to be done with the exception of excepting the fact that he would have some scrotal edema for some time due to his preoperative condition POD 6 right inguinal hernia repair seen with Dr. Trevino add ibuprofen continue miralax and scrotal support Subjective Mr. Chaudhari is day #9 status post right inguinal hernia repair and day #11 status post TURP procedure. For postoperative pain he has been transitioned to Oxycodone 10mg x 4 hours PRN and Morphine 4mg IV was switched from x 1 hour to x 8 hours yesterday. He does find Oxycodone effective towards diminishing his pain. He has used the Oxycodone three times over the last 24 hours and the Morphine twice. Patient did report soreness at the incision site last night. Pain is 5/10 currently. No fevers, chills. Results & Data Vital Signs (Past 12 Hours) Vital Signs Temp Pulse Resp BP Pulse Ox 10/18/19 09:35 93 H 126/74 10/18/19 07:45 36.8 C 90 18 130/82 95 PG Care Time/CCT Total # of Minutes Spent Total Time Spent with Patient: Total time spent is greater than 50% in coordination of care (as documented) at patient's floor/unit and/or counseling patient:
[2019-10-18] MEDS: diazePAM 5 MG TABLET PO PRN (11:40)
--- NOTE | 2019-10-18 14:50 | Hospitalist Progress Note ---
Date of Service October 18, 2019 Assessment & Plan (1) Fluid overload: Continue furosemide for a total of 5 days of Lasix 20 mg IV. Kidney function stable Giving his chronic kidney disease stage III, I would avoid ibuprofen despite of the significant benefit of the anti-inflammatory effect Continue elevating scrotum to assist drainage of edema. Continue to keep area between scrotum and thigh clean and dry and use nystatin twice per day Repeat BMP daily while receiving lasix (2) Superficial thrombosis of leg: left leg as seen on US - in the calf and unclear its proximity to the popliteal so will hold off on further anticoagulation for now. Will continue DVT prophylaxis with tid subq heparin continue plavix HAWA hose and warm compresses (3) Suicidal thoughts: psychiatrist evaluation (4) S/P TURP (status post transurethral resection of prostate): procedure went well as per primary (5) Hx of inguinal hernia surgery: per surgery (6) Benign prostatic hyperplasia with urinary obstruction and other lower urinary tract symptoms: management as per primary team (7) Chronic kidney disease: Creatinine stable Avoid nonsteroidal anti-inflammatory drugs daily bmps while receiving Lasix (8) LBBB (left bundle branch block): with high degree heart block s/p pacemaker (9) Aortic valve replaced: bioprosthetic valve continue plavix and ASA (10) Embolism of left carotid artery: continue palvix / ASA (11) H/O carotid endarterectomy: as above (12) Cerebrovascular disease: As above, continue Plavix/aspirin/statin (13) History of heart valve replacement with porcine valve: As above, valve is bioprosthetic Subjective Mr. Chaudhari says that he feels the best he has felt this admission today. Surgery added some Valium to his medications which seems to have helped. He continues to have quite a lot of scrotal swelling but his pain is much better. ROS Constitutional: no chills, aches, sweats or fever Respiratory: no sob,cough, sputum, or wheezing Cardiac: no chest pain, palpitations, edema, orthopnea or lightheadedness GI: no abdominal pain, nausea, vomiting, diarrhea or constipation : no dysuria or hesitancy Extremities: no joint pain or weakness Skin: no rash All other systems reviewed and negative Physical Exam Physical Exam: General: no distress Eyes: normal inspection, PERLL Respiratory: chest non tender, clear to auscultation, normal breath sounds, no respiratory distress, no accessory muscle use Cardiac: regular rate and rhythm, no rub or gallop, no murmur, no edema, no jvd GI/: active bowel sounds, no abd pain or tenderness, soft, non distended Extremities: normal range of motion, normal strength, non tender Neuro/Psych: alert and oriented x 3, normal mood and affect Skin: normal color, dry Results & Data Vital Signs (Past 12 Hours) Vital Signs Temp Pulse Resp BP Pulse Ox 10/18/19 09:35 93 H 126/74 10/18/19 07:45 36.8 C 90 18 130/82 95 PG Care Time/CCT Total # of Minutes Spent Total Time Spent with Patient: Total time spent is greater than 50% in coordination of care (as documented) at patient's floor/unit and/or counseling patient:
--- NOTE | 2019-10-18 15:30 | Urology Progress Note ---
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 that he is making some progress Subjective Doing slightly better today still with severe pain - but not quite as limiting mentating well catheterized Physical Exam Constitutional: well developed and well nourished Respiratory: no respiratory distress Cardiovascular: Extremities: no pedal edema Gastrointestinal (Abdomen): incision appropriate - still with edema Results & Data Vital Signs (Past 12 Hours) Vital Signs Temp Pulse Resp BP Pulse Ox 10/18/19 09:35 93 H 126/74 10/18/19 07:45 36.8 C 90 18 130/82 95 PG Care Time/CCT Total # of Minutes Spent Total Time Spent with Patient: Total time spent is greater than 50% in coordination of care (as documented) at patient's floor/unit and/or counseling patient:
[2019-10-18] MEDS: PRAVASTATIN SOD 40 MG TAB PO SCH (20:19)
[2019-10-19] MEDS: OXYCODONE HCL IR 5 MG TAB (IMMEDIATE RELEASE) PO PRN ×6 (02:32→23:43)
[2019-10-19] MEDS: HEPARIN SOD 5,000 UNIT/0.5 ML VIAL SQ SCH ×3 (06:16→21:07)
[2019-10-19] MEDS: diazePAM 5 MG TABLET PO PRN (06:20)
[2019-10-19 07:54] LABS: Basophils # (auto) 0.03 K/uL (0-0.2); Basophils % (auto) 0.3 %; Hematocrit (blood only) 32.4 % (42-52); Hemoglobin 10.7 g/dL (14.0-18.0); Immature Granulocytes # (auto) 0.04 K/uL (0.00-0.02); Immature Granulocytes % (auto) 0.4 %; Lymphocytes # (auto) 1.74 K/uL (1.2-3.4); Lymphocytes % (auto) 18.9 %; Mean Corpuscular Hemoglobin 30.5 pg (25-34); Mean Corpuscular Volume 92.3 fL (80-100); Mean Platelet Volume 9.3 fL (7.4-10.4); Monocytes # (auto) 0.99 K/uL (0.11-0.59); Monocytes % (auto) 10.8 %; Neutrophils % (auto) 69.6 %; Platelet Count 251 K/uL (130-400); RDW Coefficient of Variation 13.6 % (11.5-14.5); RDW Standard Deviation 45.6 fL (36.4-46.3); Red Blood Count 3.51 M/uL (4.7-6.1)
[2019-10-19 08:17] LABS: BUN Creatinine Ratio 17.6 (10-20); Creatinine Clr Calc Pharmacy 50.1 ml/min; Est GFR (African American) 53.3; Potassium 4.2 mmol/L (3.5-5.1)
[2019-10-19] MEDS: ASPIRIN 81 MG ECTAB PO SCH (08:42)
[2019-10-19] MEDS: FUROSEMIDE 20 MG in SYRINGE 0 ML IV SCH ×2 (08:42→11:30)
[2019-10-19] MEDS: FINASTERIDE 5 MG TAB PO SCH (08:43)
[2019-10-19] MEDS: CEFAZOLIN 1000MG 1,000 MG/7.5 ML SYR IV SCH ×3 (08:43→19:43)
[2019-10-19] MEDS: TAMSULOSIN HCL 0.4 MG CAP PO SCH (08:43)
[2019-10-19] MEDS: CLOPIDOGREL BISULFATE 75 MG TAB PO SCH (08:44)
[2019-10-19] MEDS: DOCUSATE SODIUM 100 MG CAP PO SCH ×2 (08:44→20:00)
[2019-10-19] MEDS: POLYETHYLENE (MIRALAX) 17 GM PACK PO SCH (08:45)
[2019-10-19] MEDS: METOPROLOL TARTRATE 25 MG TAB PO SCH ×2 (08:45→20:00)
--- NOTE | 2019-10-19 09:54 | Urology Progress Note ---
Date of Service October 19, 2019 Assessment & Plan (1) Urinary retention: sp TURP and s/p R ing hernia - cont supportive care for now - likely rehab placement early next week - voiding spontaneously now, Cr stable Subjective no major changes overnight voiding spontaneously - around 300cc per void some urge incontinence x2 overnight pain persists overall demeanor is somewhat improved today Physical Exam Physical Exam: edema of the scrotum/lower extremities NAD AAox3 afvss Results & Data Vital Signs (Past 12 Hours) Vital Signs Temp Pulse Pulse Resp BP BP Pulse Ox 10/19/19 08:00 37.2 C 88 18 132/79 90 10/18/19 23:05 37.5 C 78 18 142/79 H 95 PG Care Time/CCT Total # of Minutes Spent Total Time Spent with Patient: Total time spent is greater than 50% in coordination of care (as documented) at patient's floor/unit and/or counseling patient:
--- NOTE | 2019-10-19 10:41 | Surgery Progress Note ---
Date of Service October 19, 2019 Assessment & Plan (1) Hx of inguinal hernia surgery: per nursing she feels his pain is adequately controlled...finds him sleeping frequently. will continue current care. plan is for rehab early next week. Subjective pt seen. no major changes from yesterday. continues to have pain. valium does seem to be helping. Physical Exam Physical Exam: alert. nad scrotal edema about the same as yesterday per nursing. mild erythema. Results & Data Vital Signs (Past 12 Hours) Vital Signs Temp Pulse Pulse Resp BP BP Pulse Ox 10/19/19 08:00 37.2 C 88 18 132/79 90 10/18/19 23:05 37.5 C 78 18 142/79 H 95 PG Care Time/CCT Total # of Minutes Spent Total Time Spent with Patient: Total time spent is greater than 50% in coordination of care (as documented) at patient's floor/unit and/or counseling patient:
--- NOTE | 2019-10-19 14:34 | Hospitalist Progress Note ---
Date of Service October 19, 2019 Assessment & Plan (1) Fluid overload: Negative more than 3L at this point, down a kg from yesterday, no complaints of sob, lungs sound clear Continue furosemide for a total of 5 days of Lasix 20 mg IV started 10/16 Kidney function stable Giving his chronic kidney disease stage III, I would avoid ibuprofen Continue elevating scrotum to assist drainage of edema. Continue to keep area between scrotum and thigh clean and dry and use nystatin twice per day Repeat BMP daily while receiving lasix (2) Superficial thrombosis of leg: left leg as seen on US - in the calf and unclear its proximity to the popliteal so will hold off on further anticoagulation for now so as not to increase risk for bleeding Will continue DVT prophylaxis with tid subq heparin while inpatient continue plavix HAWA hose and warm compresses, elevation (3) Suicidal thoughts: psychiatrist evaluation (4) S/P TURP (status post transurethral resection of prostate): procedure went well as per primary (5) Hx of inguinal hernia surgery: per surgery (6) Benign prostatic hyperplasia with urinary obstruction and other lower urinary tract symptoms: management as per primary team (7) Chronic kidney disease: Creatinine stable Avoid nonsteroidal anti-inflammatory drugs daily bmps while receiving Lasix (8) LBBB (left bundle branch block): with high degree heart block s/p pacemaker (9) Aortic valve replaced: bioprosthetic valve continue plavix and ASA (10) Embolism of left carotid artery: continue palvix / ASA (11) H/O carotid endarterectomy: as above (12) Cerebrovascular disease: As above, continue Plavix/aspirin/statin (13) History of heart valve replacement with porcine valve: As above, valve is bioprosthetic Medicine will sign off at this time, patient seems to be diuresing well. We will continue to follow his bmps and outputs. Please call with any questions or concerns. Subjective Mr. Chaudhari continues to have pain in his right leg/scrotum 6-05/15. His does feel he has been a bit confused over the last 24 hours or so. Nursing reported some hematuria with catheterization today but no toribio bleeding or clots. ROS Constitutional: no chills, aches, sweats or fever Respiratory: no sob,cough, sputum, or wheezing Cardiac: no chest pain, palpitations, orthopnea or lightheadedness GI: no abdominal pain, nausea, vomiting, diarrhea or constipation : no dysuria or hesitancy Extremities: no joint pain or weakness Skin: no rash All other systems reviewed and negative Physical Exam Physical Exam: General: no distress Eyes: normal inspection, PERLL Respiratory: chest non tender, clear to auscultation, normal breath sounds, no respiratory distress, no accessory muscle use Cardiac: regular rate and rhythm, no rub or gallop, no murmur, +1 pitting edema lower extremities GI/: active bowel sounds, no abd pain or tenderness, soft, non distended Extremities: normal range of motion, normal strength, non tender Neuro/Psych: alert and oriented x 3, normal mood and affect Skin: normal color, dry Results & Data Vital Signs (Past 12 Hours) Vital Signs Temp Pulse Resp BP Pulse Ox 10/19/19 08:00 37.2 C 88 18 132/79 90 PG Care Time/CCT Total # of Minutes Spent Total Time Spent with Patient: Total time spent is greater than 50% in coordination of care (as documented) at patient's floor/unit and/or counseling patient:
[2019-10-19] MEDS: PRAVASTATIN SOD 40 MG TAB PO SCH (20:00)
[2019-10-20] MEDS: MoRPHine SULFATE 4 MG/ML 1 ML CARP\\VIAL IV PRN (02:08)
[2019-10-20] MEDS: CEFAZOLIN 1000MG 1,000 MG/7.5 ML SYR IV SCH ×3 (02:08→18:04)
[2019-10-20] MEDS: HEPARIN SOD 5,000 UNIT/0.5 ML VIAL SQ SCH ×3 (06:03→21:43)
[2019-10-20] MEDS: OXYCODONE HCL IR 5 MG TAB (IMMEDIATE RELEASE) PO PRN ×4 (07:45→22:30)
[2019-10-20 08:27] LABS: Hematocrit (blood only) 33.5 % (42-52); Hemoglobin 11.2 g/dL (14.0-18.0); Mean Corpuscular Hemoglobin 30.4 pg (25-34); Mean Corpuscular Hgb Conc 33.4 g/dL (32-36); Mean Platelet Volume 9.7 fL (7.4-10.4); Platelet Count 291 K/uL (130-400); RDW Coefficient of Variation 13.7 % (11.5-14.5); RDW Standard Deviation 45.7 fL (36.4-46.3); Red Blood Count 3.68 M/uL (4.7-6.1); White Blood Count 10.28 K/uL (4.8-10.8)
[2019-10-20] MEDS: METOPROLOL TARTRATE 25 MG TAB PO SCH ×2 (08:39→20:52)
[2019-10-20] MEDS: FINASTERIDE 5 MG TAB PO SCH (08:40)
[2019-10-20] MEDS: ASPIRIN 81 MG ECTAB PO SCH (08:40)
[2019-10-20] MEDS: DOCUSATE SODIUM 100 MG CAP PO SCH ×2 (08:40→20:52)
[2019-10-20] MEDS: TAMSULOSIN HCL 0.4 MG CAP PO SCH (08:40)
[2019-10-20] MEDS: POLYETHYLENE (MIRALAX) 17 GM PACK PO SCH (08:41)
[2019-10-20] MEDS: CLOPIDOGREL BISULFATE 75 MG TAB PO SCH (08:41)
[2019-10-20] MEDS: FUROSEMIDE 20 MG in SYRINGE 0 ML IV SCH (08:42)
[2019-10-20 08:59] LABS: BUN Creatinine Ratio 16.2 (10-20); Calcium 8.9 mg/dl (8.5-10.1); Creatinine Clr Calc Pharmacy 47.1 ml/min; Est GFR (African American) 49.6; Est GFR (Non-African American) 42.8; Potassium 4.1 mmol/L (3.5-5.1)
[2019-10-20] MEDS: TRAMADOL HCL 50 MG TABLET PO PRN (10:30)
--- NOTE | 2019-10-20 10:34 | Urology Progress Note ---
Date of Service October 20, 2019 Assessment & Plan (1) Urinary retention: gradually progressing likely d/c home tomorrow Subjective Better today voiding feels he is making some progress Physical Exam Physical Exam: edema - less erythema urine clear Results & Data Vital Signs (Past 12 Hours) Vital Signs Temp Pulse Resp BP BP Pulse Ox 10/20/19 07:47 37.1 C 86 18 142/73 H 93 10/19/19 23:37 37.1 C 88 20 136/82 93 PG Care Time/CCT Total # of Minutes Spent Total Time Spent with Patient: Total time spent is greater than 50% in coordin ation of care (as documented) at patient's floor/unit and/or counseling patient:
[2019-10-20] MEDS: PRAVASTATIN SOD 40 MG TAB PO SCH (20:52)
[2019-10-21] MEDS: OXYCODONE HCL IR 5 MG TAB (IMMEDIATE RELEASE) PO PRN ×4 (03:47→21:29)
[2019-10-21] MEDS: CEFAZOLIN 1000MG 1,000 MG/7.5 ML SYR IV SCH ×3 (03:47→19:38)
[2019-10-21] MEDS: HEPARIN SOD 5,000 UNIT/0.5 ML VIAL SQ SCH ×3 (06:37→21:30)
[2019-10-21] MEDS: TRAMADOL HCL 50 MG TABLET PO PRN (06:39)
[2019-10-21] MEDS: MoRPHine SULFATE 4 MG/ML 1 ML CARP\\VIAL IV PRN ×2 (07:56→08:01)
--- NOTE | 2019-10-21 08:00 | Urology Progress Note ---
Date of Service October 21, 2019 Assessment & Plan (1) Urinary retention: Voiding ok plan for d/c to rehab today outpt f/u Subjective struggling again today after a good day yesterday voiding better strong stream, feels he is emptying well Physical Exam Physical Exam: persistent scrotal edema Results & Data Vital Signs (Past 12 Hours) Vital Signs Temp Pulse Pulse Resp BP Pulse Ox 10/20/19 23:02 37.2 C 85 16 164/77 H 97 10/20/19 20:51 83 130/78 94 PG Care Time/CCT Total # of Minutes Spent Total Time Spent with Patient: Total time spent is greater than 50% in coordination of care (as documented) at patient's floor/unit and/or counseling patient:
[2019-10-21 08:23] LABS: BUN Creatinine Ratio 14.8 (10-20); Calcium 8.7 mg/dl (8.5-10.1); Creatinine Clr Calc Pharmacy 45.1 ml/min; Est GFR (African American) 47.4; Est GFR (Non-African American) 40.9; Potassium 4.2 mmol/L (3.5-5.1)
[2019-10-21] MEDS: METOPROLOL TARTRATE 25 MG TAB PO SCH ×2 (09:13→21:29)
[2019-10-21] MEDS: FINASTERIDE 5 MG TAB PO SCH (09:13)
[2019-10-21] MEDS: diazePAM 5 MG TABLET PO SCH ×2 (09:13→21:29)
[2019-10-21] MEDS: DOCUSATE SODIUM 100 MG CAP PO SCH ×2 (09:13→21:29)
[2019-10-21] MEDS: CLOPIDOGREL BISULFATE 75 MG TAB PO SCH (09:13)
[2019-10-21] MEDS: ASPIRIN 81 MG ECTAB PO SCH (09:13)
[2019-10-21] MEDS: TAMSULOSIN HCL 0.4 MG CAP PO SCH (09:13)
[2019-10-21] MEDS: POLYETHYLENE (MIRALAX) 17 GM PACK PO SCH (09:14)
[2019-10-21] MEDS: FUROSEMIDE 20 MG in SYRINGE 0 ML IV SCH (09:15)
--- NOTE | 2019-10-21 10:36 | Surgery Progress Note ---
Date of Service October 21, 2019 Assessment & Plan (1) Hx of inguinal hernia surgery: 10/21/19 Okay for discharge from general surgery standpoint today Will leave instructions for patient to follow up with Dr. Trevino in 1 wk for staple removal Recommend Keflex x1 wk for some cellulitis Patient seen and examined by Dr. Trevino Subjective Patient feels well. He is ready to be discharged to rehab today. He says he is independently going to the bathroom now without assistance. Physical Exam Physical Exam: awake/alert Results & Data Vital Signs (Past 12 Hours) Vital Signs Temp Pulse Pulse Resp BP BP Pulse Ox 10/21/19 07:59 36.9 C 88 18 126/66 92 10/20/19 23:02 37.2 C 85 16 164/77 H 97 PG Care Time/CCT Total # of Minutes Spent Total Time Spent with Patient: Total time spent is greater than 50% in coordination of care (as documented) at patient's floor/unit and/or counseling patient:
[2019-10-21] MEDS: PRAVASTATIN SOD 40 MG TAB PO SCH (21:29)
[2019-10-22] MEDS: CEFAZOLIN 1000MG 1,000 MG/7.5 ML SYR IV SCH ×3 (03:13→19:04)
--- NOTE | 2019-10-22 06:31 | Surgery Progress Note ---
Date of Service October 22, 2019 Assessment & Plan (1) Hx of inguinal hernia surgery: 10/22/19 We will asked the patient to shower hopefully increase his activity while awaiting disposition Hopefully to rehab soon 10/21/19 Okay for discharge from general surgery standpoint today Will leave instructions for patient to follow up with Dr. Trevino in 1 wk for staple removal Recommend Keflex x1 wk for some cellulitis Patient seen and examined by Dr. Trevino Subjective Still has some moderate discomfort right hip right groin area Feels that he slowly making progress Awaiting placement to rehab Physical Exam Physical Exam: Robert his usual sitting up in a chair which he spends most of his time Peripheral edema slowly improving Swelling in his scrotum is improved the incision looks well healing Results & Data Vital Signs (Past 12 Hours) Vital Signs Temp Pulse Pulse Resp BP BP Pulse Ox 10/21/19 23:06 37.4 C 85 16 145/74 H 91 10/21/19 21:24 86 143/78 H 95 PG Care Time/CCT Total # of Minutes Spent Total Time Spent with Patient: Total time spent is greater than 50% in coordination of care (as documented) at patient's floor/unit and/or counseling patient:
[2019-10-22] MEDS: HEPARIN SOD 5,000 UNIT/0.5 ML VIAL SQ SCH ×3 (06:34→21:20)
[2019-10-22] MEDS: OXYCODONE HCL IR 5 MG TAB (IMMEDIATE RELEASE) PO PRN ×4 (06:35→21:18)
[2019-10-22] MEDS: DOCUSATE SODIUM 100 MG CAP PO SCH ×2 (08:42→21:18)
[2019-10-22] MEDS: METOPROLOL TARTRATE 25 MG TAB PO SCH ×2 (08:42→21:18)
[2019-10-22] MEDS: CLOPIDOGREL BISULFATE 75 MG TAB PO SCH (08:42)
[2019-10-22] MEDS: TAMSULOSIN HCL 0.4 MG CAP PO SCH (08:42)
[2019-10-22] MEDS: ASPIRIN 81 MG ECTAB PO SCH (08:42)
[2019-10-22] MEDS: POLYETHYLENE (MIRALAX) 17 GM PACK PO SCH (08:42)
[2019-10-22] MEDS: FUROSEMIDE 20 MG in SYRINGE 0 ML IV SCH (08:43)
[2019-10-22] MEDS: FINASTERIDE 5 MG TAB PO SCH (08:43)
[2019-10-22] MEDS: diazePAM 5 MG TABLET PO SCH ×2 (08:44→21:19)
[2019-10-22 10:53] LABS: BUN Creatinine Ratio 13.7 (10-20); Calcium 8.9 mg/dl (8.5-10.1); Creatinine Clr Calc Pharmacy 44.3 ml/min; Est GFR (African American) 46.4; Potassium 3.9 mmol/L (3.5-5.1)
--- NOTE | 2019-10-22 12:34 | Urology Progress Note ---
Date of Service October 22, 2019 Assessment & Plan (1) Urinary retention: Prior urinary retention, now status post TURP and voiding adequately; still with a slow recovery from his right inguinal hernia repair Had planned on a rehab stay, however he was not accepted to a rehab facility Likely discharge home tomorrow with home care Subjective No voiding issues He feels that he is obtaining better control, had mild hematuria overnight. Emptying better Still with significant pain from his right inguinal hernia repair Physical Exam Physical Exam: NAD AAOx3 no resp distress Results & Data Vital Signs (Past 12 Hours) Vital Signs Temp Pulse Resp BP Pulse Ox 10/22/19 08:03 36.8 C 79 18 134/74 93 PG Care Time/CCT Total # of Minutes Spent Total Time Spent with Patient: Total time spent is greater than 50% in coordination of care (as documented) at patient's floor/unit and/or counseling patient:
[2019-10-22] MEDS: TRAMADOL HCL 50 MG TABLET PO PRN (13:00)
[2019-10-22] MEDS: PRAVASTATIN SOD 40 MG TAB PO SCH (21:18)
[2019-10-23] MEDS: CEFAZOLIN 1000MG 1,000 MG/7.5 ML SYR IV SCH ×2 (02:13→12:02)
[2019-10-23] MEDS: OXYCODONE HCL IR 5 MG TAB (IMMEDIATE RELEASE) PO PRN ×2 (04:58→08:51)
[2019-10-23] MEDS: HEPARIN SOD 5,000 UNIT/0.5 ML VIAL SQ SCH (05:01)
[2019-10-23 07:06] LABS: Hematocrit (blood only) 32.3 % (42-52); Hemoglobin 10.7 g/dL (14.0-18.0); Mean Corpuscular Hemoglobin 30.2 pg (25-34); Mean Corpuscular Hgb Conc 33.1 g/dL (32-36); Mean Corpuscular Volume 91.2 fL (80-100); Mean Platelet Volume 9.1 fL (7.4-10.4); Platelet Count 362 K/uL (130-400); RDW Coefficient of Variation 13.5 % (11.5-14.5); Red Blood Count 3.54 M/uL (4.7-6.1); White Blood Count 10.28 K/uL (4.8-10.8)
--- NOTE | 2019-10-23 08:00 | Urology Progress Note ---
Date of Service October 23, 2019 Assessment & Plan (1) Benign prostatic hyperplasia with urinary obstruction and other lower urinary tract symptoms: d/c home Subjective ready for d/c home Physical Exam Physical Exam: NAD AAox3 voiding Results & Data Vital Signs (Past 12 Hours) Vital Signs Temp Pulse Pulse Resp BP Pulse Ox 10/23/19 07:56 37.2 C 83 18 119/67 93 10/22/19 23:45 36.8 C 87 16 152/77 H 93 10/22/19 21:10 95 H 124/78 PG Care Time/CCT Total # of Minutes Spent Total Time Spent with Patient: Total time spent is greater than 50% in coordination of care (as documented) at patient's floor/unit and/or counseling patient:
[2019-10-23] MEDS: FINASTERIDE 5 MG TAB PO SCH (08:04)
[2019-10-23] MEDS: ASPIRIN 81 MG ECTAB PO SCH (08:04)
[2019-10-23] MEDS: CLOPIDOGREL BISULFATE 75 MG TAB PO SCH (08:04)
[2019-10-23] MEDS: diazePAM 5 MG TABLET PO SCH (08:04)
[2019-10-23] MEDS: TAMSULOSIN HCL 0.4 MG CAP PO SCH (08:04)
[2019-10-23] MEDS: METOPROLOL TARTRATE 25 MG TAB PO SCH (08:04)
[2019-10-23] MEDS: POLYETHYLENE (MIRALAX) 17 GM PACK PO SCH (08:04)
[2019-10-23] MEDS: DOCUSATE SODIUM 100 MG CAP PO SCH (08:04)
--- NOTE | 2019-10-23 08:11 | Surgery Progress Note ---
Date of Service October 23, 2019 Assessment & Plan (1) Hx of inguinal hernia surgery: POD 13 large RIH repair d/c planning, will remove leni later this AM seen with Dr. Trevino Subjective less pain, taking only Percocet Physical Exam Gastrointestinal (Abdomen): Inspection/Auscultation: + abdominal surgical incision (clean, dry, less scrotal swelling) Percussion/Palpation: abdomen soft Results & Data Vital Signs (Past 12 Hours) Vital Signs Temp Pulse Pulse Resp BP Pulse Ox 10/23/19 07:56 37.2 C 83 18 119/67 93 10/22/19 23:45 36.8 C 87 16 152/77 H 93 10/22/19 21:10 95 H 124/78 PG Care Time/CCT Total # of Minutes Spent Total Time Spent with Patient: Total time spent is greater than 50% in coordination of care (as documented) at patient's floor/unit and/or counseling patient:
--- NOTE | 2019-10-25 08:32 | Discharge Summary ---
Date of Service October 25, 2019 Admission HPI Per Admitting Provider Patient admitted secondary to chronic urinary retention, renal dysfunction, hydronephrosis and massive right inguinal hernia -plan upon admission was undergo TURP followed by hernia repair 48 hours later Principal Diagnosis Right inguinal hernia; urinary retention Discharge Data Allergies Allergy/AdvReac Type Severity Reaction Status Date / Time Iodinated Contrast Media Allergy Intermediate Hives per Verified 10/07/19 11:28 patient DEER DANDER Allergy Unknown Unknown Uncoded 10/07/19 11:28 Consultations 10/10/19 15:28 Consult Pain Management Routine 10/17/19 09:39 Consult Psychiatry Routine 10/17/19 11:20 Consult Case Management - Discharge Planning Routine Consult Hospitalist Routine Procedures Performed Operation Date: 10/08/19 13:00 Actual Procedures p Transurethral Resection Prostate(Not Applicable) - Alvarado Collazo MD Operation Date: 10/10/19 10:50 Actual Procedures p Large Right Incarcerated Scrotal Hernia Repair with Mesh(Right) - Cristi Trevino MD Ordered Studies 10/17/19 14:16 US venous doppler [facility] Urgent Hospital Course (1) Inguinal hernia: (2) Urinary retention: 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 He has had longstanding urinary retention managed with [facility], he had bilateral hydronephrosis and has some chronic kidney disease. More impressing, he has a very large right inguinal hernia that is highly symptomatic. He was admitted to undergo TURP in preparation for right inguinal hernia repair. He remained on our service following the TURP and the hernia repair although the predominance of his issues after the TURP related to recovery from the hernia. He underwent an uneventful TURP and recovered appropriately, his urine remained clear and the catheter remained in place through his hernia repair. Ultimately this catheter was removed 3 days after the hernia surgery, he did not void spontaneously initially, and required intermittent catheterization. Gradually over the remainder of his hospitalization his voiding pattern improved and he began to empty successfully. His hospitalization, however, was extremely prolonged secondary to pain related issues after the hernia repair. He remained relatively immobile and resistant to the idea of discharge home. He was gauged by PT and OT and there was discus avtar of potential rehab placement. Ultimately he was discharged home on approximately day 15 with home health aides. He was in stable condition at the time of discharge home. Throughout the course of his hospitalization, there was an additional consultation by our pain service and a brief psychiatric evaluation. Total Time Total Time Spent Total Time Spent (In Minutes): 45 Total Time Includes: Examination of the Patient, Discharge Planning, Medication Reconciliation and Communication With Other Providers Discharge Plan Discharge Items Patient Disposition: Home - Home Health Services Reason For Visit: Urinary Retention Discharge Diagnosis: urinary retention, inguinal hernia Condition on Discharge: Good Activity: As commented below Activity Comment: please take it easy until followup Lifting: No more than 10 pounds Bathing: Keep incision dry Bathing Comment: okay to shower, avoid tubs/soaking. Sexual Activity: Wait until after follow-up appointment Exercise/Sports: Wait until after follow-up appointment Driving/Machine Use: Resume 1 day after discharge Weightbearing: Full weightbearing Non-emergency contact: Surgeon and Urologist Call non-emergency contact if: your pain is worsening, your temperature is above 101, your wound has increased redness, your wound has increased drainage and your wound pain has increased Follow-up/Referrals: Alvarado Collazo MD [Physician] - 11/04/19 1:20 pm Cristi Trevino MD [Surgeon] - (In 1 week to have leni removed, call if you do not have an appt) Franco Adams MD [Primary Care Provider] - [facility],Nurse [Physician] - 10/15/19 2:00 pm (Nursing appointment for catheter removal) Diet: Regular Addtl Attending Provider Instructions: Instructions from your urology team: Please take all medications as prescribed and keep all follow-ups as scheduled. Please call our office at [phone] with any questions, concerns or need to reschedule appointments for any reason. We are happy to assist you. Okay to restart your Plavix and Aspirin from our prespective. Tips for your recovery at home: Dont be alarmed by brownish or reddish blood or clots in your urine. This is a result of the procedure. This may occur off and on for weeks to months after the procedure but should continue to improve. Drink plenty of fluids during the day (enough to keep your urine very light colored). This will help keep a healthy flow of urine. Do not lift >10 lbs until your followup Avoid constipation. Please use a stool softener (Colace) for the first two weeks after your procedure Be sure to finish the antibiotics as prescribed. If you go home with a catheter, please wash tubing where it enters your body twice daily with mild soap (Dove or Dial). Once your catheter is removed, expect some blood in your urine and some burning when you urinate. You should have an appointment to have this removed, if you do not please call our office to arrange. When to call [facility] Urology at [phone]: Your urine contains heavy blood clots You are constantly leaking urine Fever of 101F or higher, chills, nausea, or vomiting Your pain is not relieved with medication You should complete a 7 day course of Keflex antibiotic Pending Studies at Discharge: No Stand-Alone Forms: My [facility], Opioid Pain Management, Smoking Cessation Medications and DC Order Prescriptions: New cephalexin [Keflex] 500 mg capsule 500 mg PO BID 7 Days Qty: 14 RF: 0 oxycodone-acetaminophen [Percocet] 10-325 mg tablet 1 tab PO Q6H PRN (Reason: pain, ongoing therapy) Qty: 30 RF: 0 Continued metoprolol tartrate 25 mg tablet 25 mg PO BID RF: 0 clopidogrel 75 mg tablet 75 mg PO QAM Qty: 30 RF: 0 pravastatin 40 mg tablet 40 mg PO QAM RF: 0 aspirin [Aspirin Low Dose] 81 mg Tablet,Delayed Release (Dr/Ec) 81 mg PO QAM RF: 0 finasteride 5 mg tablet 5 mg PO QAM Qty: 30 RF: 0 Discontinued tamsulosin 0.4 mg capsule 0.4 mg PO DAILY RF: 0 hydrocodone-acetaminophen 10-300 mg Tablet 1 tab PO BID RF: 0 Discharge Orders: Discharge Order (Routine); Ordered 10/23/19 Ordered By: Alvarado Rodriguez/Other Patient Handouts: Catheter Indwelling Urinary Dc, Leg Bag Care Dc Admission Data Admit Date/Time: 10/08/19 15:31 Attending Provider: Alvarado Collazo Admit Provider: Alvarado Collazo Primary Care Provider: Franco Adams Other Providers: [facility] ; Brina Talbot ; Agnes Butt ; Cosme Garza ; Yazmin Betts ; Esha Bailey ; Malcolm Yu ; Price Conner ; Jennie Ochoa ; Scottie Roth ; Bladimir Hobson ; Palmer Rubin ; Merry Arriola ; Alayna Kulkarni ; Dipti Sharpe ; Dionisio Swenson ; Mikayla Jacobs ; Uriel Lane ; Yazmin Watts ; Alphonse Garcia ; Millie Harris ; Alvarado Torres ; Malcolm Catalan ; Sarah Valiente ; Sarita Vargas ; Zain Mane ; Tom Oliva ; Mahsa Brownlee ; Desmond Fox ; Paramjit Ferro ; Tati García ; Fly Mckeon. ; [facility] ; Lane Marie. Other Interventions: Discharge Summary Assessment (RN) Last Done: 10/23/19 09:59 DC Date/Time DO NOT enter until pt leaves facility: 10/23/19 13:19
== END 2019-10-23 13:19 | disposition home health service (06) | DRG 351 ==
LOC: ASU 13:09 → 3N 15:31